=== PATIENT | male | born 1965 | race Caucasian/White ===

== ENCOUNTER 2020-04-06 10:54 | Inpatient (IN) | payer BC, SELFPAY ==
[2020-04-06] VITALS (7 sets, daily range): BP systolic 129–165; BP diastolic 64–95; PULSE 89–115; RESP 16–22; TEMP 36.4–37.1; O2SAT 93–98; BMI 43.0; BMI 56.5; BMI 56.0
--- NOTE | 2020-04-06 11:10 | EKG12_ITS ---
Test Reason : Blood Pressure : / mmHG Vent. Rate : 087 BPM Atrial Rate : 416 BPM P-R Int : 000 ms QRS Dur : 076 ms QT Int : 338 ms P-R-T Axes : 000 -38 -25 degrees QTc Int : 406 ms Accelerated Junctional rhythm Left axis deviation Inferior infarct , age undetermined Abnormal ECG Confirmed by ALEYDA ZARAGOZA, EDMUND ([id number]), international editorial producer SHEELA LOMBARDI ([id number]) on 04/11/2020 1:52:36 PM Referred By: REGI Confirmed By:ELI MAYNARD MD
[2020-04-06 11:50] LABS: Absolute Lymphocyte Count 0.61 X10^3/uL (0.83-4.51); Absolute Neutrophil Count 7.5 X10^3/uL (2.0-7.7); Basophil# 0.07 X10^3/uL; Basophil% 0.7 % (0-1); Eosinophil# 0.18 X10^3/uL; Eosinophils% 1.9 % (0-5); Hematocrit 36.9 % (40-54); Hemoglobin 12.1 g/dL (13.0-16.5); Lymphocyte # 0.61 X10^3/ul (4.0); Lymphocyte % 6.5 % (19-41); Mean Corp Hgb Conc 32.8 g/dL (32-36); Mean Corpuscular Hgb 32.6 pg (27.0-32.0); Mean Corpuscular Volume 99.5 fL (80-94); Monocyte# 0.94 X10^3/uL; NRBC Flagged by Analyzer 0 % (0-5); Neutrophil # 7.51 X10^3/uL (2.7-7.7); Neutrophil % 80.4 % (47-70); Platelet Count 117 K/mm3 (150-450); RBC Distribution Width CV 15.7 % (11.6-14.6); RBC Distribution Width SD 57.7 fl (35.1-43.9); Red Blood Count 3.71 M/mm3 (4.6-6.2); White Blood Count 9.4 K/mm3 (4.4-11.0)
--- NOTE | 2020-04-06 11:55 | RAD_ITS ---
STUDY: X-RAY CHEST REASON FOR EXAM: Male, 54 years old. SOB WITH PRODUCTIVE COUGH FOR A MONTH TECHNIQUE: PA and lateral views of the chest. COMPARISON: None. FINDINGS: EKG electrodes are seen. Small right pleural effusion with blunting of the left prosthetic angle. Mild degree of vascular congestion. There is mild cardiac enlargement. Normal mediastinum and bo. Normal visualized pulmonary arteries. Normal visualized aortic arch and descending thoracic aorta. There are diffuse degenerative changes of the visualized thoracic spine. Normal visualized ribs, clavicles, and shoulders. There is no demonstrated abnormality of the visualized soft tissue structures of the upper abdomen. RAD/Chest PA and Lateral IMPRESSION: Mild thyromegaly with a mild degree of vascular congestion and small bilateral effusions more prominent on the right side. Electronically Signed: Tutu Tong, at 12:18 EDT , Service support ,
[2020-04-06 11:57] LABS: International Normalized Ratio 1.5; Partial Thromboplast Time 35.6 Seconds (24.1-36.2); Prothrombin Time (Protime)PT. 17.8 SECONDS (11.7-14.9)
--- NOTE | 2020-04-06 12:07 | ED.VIS.GEN ---
History of Present Illness Chief Complaint: Shortness of Breath Detail of Chief Complaint: Shortnes of breath, lower extremity swelling, increased abdominal girth EL Informant: Patient, Significant Other Onset: Days Context: Gradual Onset Timing: Continuous Quality: Dyspnea on exertion, weight gain, swelling Location: Cardiopulmonary Current Severity: Mild Maximum Severity: Severe Worsened by: Walking Relieved by: Nothing Associated Symptoms: Denies orthopnea and PND. Denies chest discomfort Narrative: Is a 54-year-old morbidly obese male with history obstructive sleep apnea. He states he is compliant with his CPAP machine. He presents because of increased abdominal girth, increased swelling, dyspnea on exertion. He states he is only able to walk 10 feet before he has to stop. He states a month ago he was able to walk significantly farther. He states his pants are tight. He denies history of heart failure. He denies history of coronary disease. He denies history of hypertension or diabetes. He denies fever, chills night sweats. He denies ocular, visual auditory symptoms. He denies runny nose, congestion or postnasal drainage. He denies orthopnea and PND. He denies nausea, vomiting diarrhea. Denies intolerance to greasy or fried foods. Denies history of liver disease or gallbladder disease. He denies dark-colored urine. He denies back pain. Prior similar symptoms: No Recent Illness/Hospitalization: No - Past Medical History (1) Obstructive sleep apnea Status: Acute Past Medical History - Allergies and Home Meds Allergies/Adverse Reactions: Allergies No Known Allergies Allergy (Verified 04/06/20 10:54) Primary Care Physician: Nancy Patterson MD [STAFF PHYSICIAN] - Prior records reviewed: Yes Lives: Spouse/ Significant Other Smoking Status: Former smoker - Patient states he quit smoking 1 month ago. Alcohol: None Drugs: None Review of Systems General: Reports: Malaise. Denies: Chills, Fever, Subjective, Sweats, Weight loss Eyes: Denies: Visual changes - bilaterally, Blurred Vision - bilaterally ENT: Reports: - - Nuys ear pain, ringing in his ears or decreased hearing. Denies: Bilateral ear pain, Rhinorrhea, Sore throat Cardiovascular: Denies: Chest pain, Palpitations, Heart racing Respiratory: Reports: Dyspnea, Cough, Dyspnea on exertion. Denies: Orthopnea, Paroxysmal nocturnal dyspnea Gastrointestinal: Reports: - - Reports increased abdominal girth and discomfort from his skin being tight. Denies: Abdominal pain, Nausea, Vomiting, Diarrhea, Melena, Hematochezia Genitourinary: Denies: Dysuria, Hematuria, Frequency Musculoskeletal: Reports: Swelling. Denies: Myalgias, Arthralgias, Neck pain, Back pain, Extremity Pain, -, - Endocrine: Denies: Polyuria, Polydipsia Hematologic: Denies: Easy bruising, Easy bleeding Physical Exam Vital Signs/Narrative: Vital Signs Temp Pulse Resp BP Pulse Ox 04/06/20 10:56 97.5 F L 93 16 152/87 H 98 Inital Vital Signs reviewed: Yes General: Well nourished, Well developed, Obese Head: Normocephalic, Atraumatic Eyes: Perrl, EOMI, Scleral icterus. Negative for: Pale conjunctiva ENT: No rhinorrhea, TM's clear. Negative for: Nasal congestion Neck: Supple, Nontender, No lymphadenopathy, No JVD Cardiovascular: Regular rate, Regular rhythm, No murmurs, Normal S1, Normal S2 Respiratory: No distress, CTA bilaterally, Chest nontender Abdomen: Soft, Nontender, Nondistended, Normal bowel sounds Rectal: Deferred Back: Nontender, Normal Inspection. Negative for: CVA tenderness Extremities: Nontender, Edema - 1 cm of pitting edema dorsum of right and left foot. Patient has anasarca. Skin: No rash, Jaundice, No Trauma. Negative for: Cyanosis, Diaphoresis Neurological: Alert, Oriented x3, Cranial nerves II-XII grossly intact, Normal Strength, Normal Sensation, Normal DTR, Normal Gait Psychological: Normal affect, Normal Mood Diagnostic/Tx/Re-eval Chest X-Ray - ED: 2 View, Read by ED Physician, Normal, Bony Structures, Cardiomegaly, CHF, Right Effusion, - - 3 interpreted by me at 10/29/2005 Impressions Chest X-Ray 04/06/20 11:55 IMPRESSION: Mild thyromegaly with a mild degree of vascular congestion and small bilateral effusions more prominent on the right side. Electronically Signed: Tutu Tong, at 12:18 EDT , Service support , Abdomen/Pelvis CT 04/06/20 12:28 IMPRESSION: Diffuse ascites. Diffuse edema in the subcutaneous tissues. Findings suggestive of cirrhosis of the liver with the mild splenomegaly and varices formation in the region of the splenic hilum. Electronically Signed: Tutu Tong, at 14:31 EDT , Service support , 04/06/20 11:55 Chest PA and Lateral [RAD] Stat 04/06/20 12:28 Abdomen/Pelvis WITH Contrast [CT] Stat Laboratory Results 04/06/20 04/06/20 04/06/20 11:35 11:35 11:35 WBC 9.4 RBC 3.71 L Hgb 12.1 L Hct 36.9 L MCV 99.5 H MCH 32.6 H MCHC 32.8 RDW Std Deviation 57.7 H RDW Coeff of Olvin 15.7 H Plt Count 117 L MPV 10.0 Immature Gran % (Auto) 0.500 Neut % (Auto) 80.4 H Lymph % (Auto) 6.5 L Carlton % (Auto) 10.0 Eos % (Auto) 1.9 Baso % (Auto) 0.7 Absolute Neuts (auto) 7.5 Absolute Lymphs (auto) 0.61 L Nucleated RBC % 0 PT 17.8 H INR 1.5 APTT 35.6 Sodium 140 Potassium 3.7 Chloride 107 Carbon Dioxide 27.0 Anion Gap 6 BUN 14 Creatinine 0.78 Estim Creat Clear Calc 109.19 Est GFR (MDRD) Af Amer 132 Est GFR (MDRD) Non-Af 109 BUN/Creatinine Ratio 17.9 Glucose 90 Calcium 8.3 L Total Bilirubin 5.20 H AST 53 H ALT 28 Alkaline Phosphatase 233 H Troponin I < 0.015 B-Natriuretic Peptide Total Protein 6.8 Albumin 2.0 L Globulin 4.8 H Albumin/Globulin Ratio 0.4 L 04/06/20 11:35 WBC RBC Hgb Hct MCV MCH MCHC RDW Std Deviation RDW Coeff of Olvin Plt Count MPV Immature Gran % (Auto) Neut % (Auto) Lymph % (Auto) Carlton % (Auto) Eos % (Auto) Baso % (Auto) Absolute Neuts (auto) Absolute Lymphs (auto) Nucleated RBC % PT INR APTT Sodium Potassium Chloride Carbon Dioxide Anion Gap BUN Creatinine Estim Creat Clear Calc Est GFR (MDRD) Af Amer Est GFR (MDRD) Non-Af BUN/Creatinine Ratio Glucose Calcium Total Bilirubin AST ALT Alkaline Phosphatase Troponin I B-Natriuretic Peptide 125.4 H Total Protein Albumin Globulin Albumin/Globulin Ratio Reviewing CAT scan report patient states he was a heavy drinker. He still drinks daily. Suspect the cirrhosis noted on CAT scan with ascites is due to alcoholic liver disease causing cirrhosis. Case discussed with hospitalist. Plan is to admit for diuresis and further work-up. - Rhythm Strip Rhythm Strip: Sinus Rhythm Rate: 92 Ectopy: None - EKG Initial EKG Interpretation: Sinus Rhythm - This rhythm ventricular rate of 87. Computer is reading accelerated junction. I am in disagreement. NH interval is approximately 120 ms. QRS duration 76 ms. QT duration 338 ms. Cromwell to the left. There is artifact which computer is reading as ischemia. - Medical Decision Making Patient with anasarca. Need to rule out right heart failure, cardiac ischemia, left heart failure. He appears jaundiced. This may be due to heart failure. Will obtain appropriate blood work including CMP, CBC, coags. Chest x-ray is obtained to evaluate for congestive heart failure. EKG to evaluate for cardiac ischemia. ED Disposition - Plan for ED Patient: Disposition: Home or Assisted Living Diagnosis: Congestive heart failure, Ascites due to alcoholic cirrhosis, Painless jaundice, Bilateral pleural effusion, Anasarca Referrals: Nancy Patterson MD [STAFF PHYSICIAN] -
[2020-04-06 12:08] LABS: ALB/GLOB Ratio 0.4 RATIO (0.9-2.4); AST(SGOT) 53 U/L (15-37); Alanine Aminotransfer ALT/SGPT 28 U/L (16-61); Alkaline Phosphatase 233 U/L (45-117); Anion Gap 6 (5-15); BUN 14 mg/dL (7-18); BUN/Creat Ratio 17.9 RATIO (10-20); Calcium,Total 8.3 mg/dL (8.5-10.1); Chloride 107 mmol/L (98-107); Creatinine, Serum 0.78 mg/dL (0.70-1.30); EST Glomerular Filtration Rate 109 mL/min (>60); Est Glom Filt Rate - Afr Amer 132 mL/min (>60); Estimated Creatinine Clearance 109.19 ml/min; Globulin 4.8 g/dL (2.2-4.2); Glucose 90 mg/dL (74-106); Potassium 3.7 mmol/L (3.5-5.1); Protein, Total 6.8 g/dL (6.4-8.2); Sodium Level 140 mmol/L (136-145)
[2020-04-06 12:10] LABS: BNP,B-Type NATRIURETIC PEPTIDE 125.4 pg/mL (0-100)
--- NOTE | 2020-04-06 12:28 | CT_ITS ---
STUDY: CT ABDOMEN AND PELVIS WITH CONTRAST REASON FOR EXAM: Male, 54 years old. PAINLESS JAUNDICE AND ANASARCA. RADIATION DOSAGE (If Supplied By Facility): CTDIvol = ( 26.53 ) mGy, DLP = ( 1884.59 ) mGycm TECHNIQUE: Transaxial images were obtained from the dome of the diaphragm to the symphysis pubis with oral contrast. Oral and amp;amp;amp; IV Gastrografin and amp;amp;amp; 100mL Isovue-300 was administered. Sagittal and coronal images were reconstructed. Individualized dose optimization techniques were used for this CT. COMPARISON: None. FINDINGS: Small right pleural effusion with minimal right basilar atelectasis. The visualized portions of the heart are within normal limits. Diffuse ascites. There is a diffuse contour abnormality of the liver consistent with cirrhotic changes. Mildly thickened gallbladder wall most likely secondary to the diffuse ascites. There is mild splenomegaly. Findings suggestive of varices in the region of the splenic hilum. Normal pancreas. Normal bilateral adrenal glands. Normal right kidney. Normal left kidney. Normal visualized stomach. Normal small intestine. There is prominence of the haustral pattern in the right hemicolon. The appendix is visualized and appears normal. Normal abdominal aorta. Normal inferior vena cava. Normal retroperitoneum. Normal urinary bladder. Subcutaneous edema. There are degenerative changes of the visualized lumbar spine. CT/Abdomen/Pelvis WITH Contrast IMPRESSION: Diffuse ascites. Diffuse edema in the subcutaneous tissues. Findings suggestive of cirrhosis of the liver with the mild splenomegaly and varices formation in the region of the splenic hilum. Electronically Signed: Tutu Tong, at 14:31 EDT , Service support ,
--- NOTE | 2020-04-06 15:51 | HP.PCM_ITS ---
History of Present Illness Date of Admission: 04/06/20 Chief Complaint: shortness of breath The patient is a 54 year old M with no significant past medical history. He was admitted through the ED on 04/06/2020 with a complaint of shortness of breath. Shortness of breath had been going on for close to 2 months and that had progressively gotten worse. It was mainly exertional in nature and states he had to now take breaks while walking to his desk. He denied any orthopnea PND but admitted to lower extremity edema and felt that his abdomen was enlarging and getting tight. He denied any palpitations, dizziness, fever or chills, cough, exposure to any contact with COVID 19, diarrhea vomiting. Review of systems otherwise negative. says she had noted that his eyes were getting yellow. He is never been told he has heart failure and does have a strong alcohol history where he says he used to drink heavily in the past but quit about a month ago; recently had been drinking just about 2-3 beers daily. At time of review in the ED, temperature 98.1 ?F with blood pressure of 129/95, pulse rate of 115 respiratory rate of 22. Was saturating at 94% on room air. Chemistry showed sodium of 140 with potassium of 3.7 and total bilirubin of 5.2 with AST of 53, ALT of 28 and ALP of 233. Initial troponin was 0.015. BNP was 125.4. CBC showed hemoglobin of 12.1 with WBC of 9.4 and platelets of 117. This x-ray showed mild thyromegaly with a mild degree of vascular congestion and small bilateral pleural effusions more prominent on the right side and abdominopelvic CT showed diffuse ascites with diffuse edema in the subcutaneous tissues and findings suggestive of cirrhosis of the liver with mild splenomegaly and variceal formation in the region of the splenic hilum. He has been admitted to be managed for shortness of breath likely due to acute exacerbation of CHF as well as elevated bilirubin likely due to liver cirrhosis and probable cardiac cirrhosis from heart failure. [] Past Medical History Allergies No Known Allergies Allergy (Verified 04/06/20 10:54) Home Medications: Ambulatory Orders Medication Instructions Recorded NK 04/06/20 Surgical History: no surgical history Psychiatric History: No pertinent psych hx Lives: Spouse/ Significant Other Smoking Status: Former smoker - Patient states he quit smoking 1 month ago. Tobacco Use: Chew Alcohol: Heavy - quit drinking 1 month ago Drugs: None - *Family History Maternal History Items: Diabetes, High Cholesterol, Heart Disease Paternal History Items: Heart Disease, Hypertension Review of Systems Constitutional: Denies: Chills, Fever, Malaise, Weakness, Weight Change Eyes: Denies: Blurred vision HEENT: Denies: Head Aches, Sinus Congestion, Sinus Drainage Cardiovascular: Reports: Edema. Denies: Chest Pain, Chest Pressure, Heaviness, Orthopnea, Palpitations, Paroxysmal Noc. Dyspnea Respiratory: Reports: Shortness of Breath, Shortness of breath upon exertion. Denies: Cough, Shortness of breath at rest, Sputum production Gastrointestinal: Reports: - - abdominal distension, jaundice. Denies: Abdominal Pain, Nausea, Vomiting Genitourinary: Denies: Dysuria Musculoskeletal: Denies: Joint Pain, Joint Tenderness Skin: Denies: Rash, Wounds Neurological: Denies: Numbness, Tingling, Focal weakness Psychiatric: Denies: Anxiety, Depression, Homicidal Ideations, Suicidal Ideations Hematologic/ Lymphatic: Denies: Easy Bruising, Easy Bleeding VTE Information - Inpt Only VTE Present on Admission: No VTE Pharm Prophylaxis ordered?: Yes Patient Problems: Active and Suspected Problems Congestive heart failure (Acute) Ascites due to alcoholic cirrhosis (Acute) Painless jaundice (Acute) Bilateral pleural effusion (Acute) Anasarca (Acute) - Physical Exam Vitals/I&O's: Vital Signs Temp Pulse Resp BP Pulse Ox 98.1 F 115 H 22 H 129/95 H 94 04/06/20 14:50 04/06/20 14:50 04/06/20 14:50 04/06/20 14:50 04/06/20 14:50 Oxygen Delivery Method Room Air Weight: 300 lb Body Mass Index (BMI) 43.0 General: Alert, Oriented x3, Cooperative, No apparent distress HEENT: Atraumatic, PERRLA, EOMI, Normocephalic, - - jaundiced sclera Oral: Dry Mucosa Neck: Supple, No JVD, Negative Carotid Bruits Lungs: - - diminished breath sounds bibasally, no wheezes or crackles. On room air. Cardiovascular: Regular rate, Regular Rhythm, Normal S1, Normal S2, No murmurs Abdomen: Bowel Sounds Present, Soft, Non Tender, Distended, Obese, - - diffuse ascites with positive fluid thrill, edema of the abdominal wall Extremities: No edema, Capillary Refill Less than 3 Seconds Skin: No rashes, No breakdown Musculoskeletal: No Tenderness to Palpation of Joints or Extremities Lymphatic: No Cervical, Supraclavicular, or Inguinal Adenopathy Neurological: Cranial nerves II-XII grossly intact, Neuro grossly intact, Motor Exam 5/5 strength throughout Psych/Mental Status: Normal Affect, Appropriate, Alert and oriented to time, place, person, mood and affect Laboratory Results 04/06/20 11:35: WBC 9.4, RBC 3.71 L, Hgb 12.1 L, Hct 36.9 L, MCV 99.5 H, MCH 32.6 H, MCHC 32.8, RDW Std Deviation 57.7 H, RDW Coeff of Olvin 15.7 H, Plt Count 117 L, MPV 10.0, Immature Gran % (Auto) 0.500, Neut % (Auto) 80.4 H, Lymph % (Auto) 6.5 L, Willacy % (Auto) 10.0, Eos % (Auto) 1.9, Baso % (Auto) 0.7, Absolute Neuts (auto) 7.5, Absolute Lymphs (auto) 0.61 L, Nucleated RBC % 0 04/06/20 11:35: PT 17.8 H, INR 1.5, APTT 35.6 04/06/20 11:35: Sodium 140, Potassium 3.7, Chloride 107, Carbon Dioxide 27.0, Anion Gap 6, BUN 14, Creatinine 0.78, Estim Creat Clear Calc 109.19, Est GFR (MDRD) Af Amer 132, Est GFR (MDRD) Non-Af 109, BUN/Creatinine Ratio 17.9, Glucose 90, Calcium 8.3 L, Total Bilirubin 5.20 H, AST 53 H, ALT 28, Alkaline Phosphatase 233 H, Troponin I < 0.015, Total Protein 6.8, Albumin 2.0 L, Globulin 4.8 H, Albumin/Globulin Ratio 0.4 L 04/06/20 11:35: B-Natriuretic Peptide 125.4 H Diagnostic Data Chest X-Ray 04/06/20 11:55 IMPRESSION: Mild thyromegaly with a mild degree of vascular congestion and small bilateral effusions more prominent on the right side. Electronically Signed: Tutu Tong, at 12:18 EDT , Service support , Abdomen/Pelvis CT 04/06/20 12:28 IMPRESSION: Diffuse ascites. Diffuse edema in the subcutaneous tissues. Findings suggestive of cirrhosis of the liver with the mild splenomegaly and varices formation in the region of the splenic hilum. Electronically Signed: Tutu Tong, at 14:31 EDT , Service support , Assessment/Plan All Active Problems Obstructive sleep apnea (Acute) Congestive heart failure (Acute) Ascites due to alcoholic cirrhosis (Acute) Painless jaundice (Acute) Bilateral pleural effusion (Acute) Anasarca (Acute) 54-year-old male admitted with a complaint of shortness of breath. 1. Acute heart failure of unknown EF * Admit to PCU with telemetry. * BNP is only 125, patient is morbidly obese with BMI of over 50. * Chest x-ray showed mild thyromegaly with pulmonary vascular congestion. * EKG showed no acute ST changes. * Start diuresing with IV Lasix 40 mg twice daily. Restrict fluid to 1500 cc daily. Monitor intake and output. * Order 2D echo. * Breathing treatments with bronchodilators. Give oxygen as needed and titrate to maintain blood pressure more than 90%. * Will check TSH as well. * 2. Hyperbilirubinemia likely due to liver cirrhosis * Patient's bilirubin is 5.2. No baseline known. Patient is visibly jaundiced and says she has seen this for about 1 to 2 months. * AST is 53 and ALT T is 28 with ALP of 233. * CT of the abdomen and pelvis showed diffuse ascites with diffuse contour abnormality of the liver consistent with cirrhosis and mildly thickened gallbladder most likely secondary to diffuse ascites with mild splenomegaly and findings suggestive of varices in the region of the splenic hilum with a normal pancreas. Also subcutaneous edema. * It is likely that heart failure may also contributing to this due to possible cardiac cirrhosis. * Will get 2D echo. Trend bilirubin anemia to see if it improves with diuresis. * Counseled that we do not have a GI specialist here, but he prefers to stay here. He was counseled that if his hyperbilirubinemia worsened, he will have to be transferred to a tertiary center where there is GI service available. * 3. SIRS criteria: * No focus of infection. * Patient still tachycardic and tachypneic. * He has no elevated white cell count and no fever is no clear focus of infection. * I think this is all due to heart failure and not due to sepsis. * Will monitor. * 4. SOPHY: States he uses CPAP at night. To bring his CPAP machine in from home. DVT prophylaxis: Lovenox. CODE STATUS: Full code * Patient counseled extensively about different types of CODE STATUS including full code, DNR CCA and DNR CCA. Patient elects to be full code. * Total [id number] time 17 minutes. Inpatient E&M: 48776 Init Hosp L3 Procedures: 44553 Advncd Care Plan 30 Min
--- NOTE | 2020-04-06 15:51 | NURSING ---
PCU [facility] CHF WITH PEDRITO PLEURAL EFFUSIONS, ALCOHOLIC LIVER
[2020-04-06] MEDS: Furosemide 40 MG/4 ML Vial IV (17:03)
[2020-04-06] MEDS: 0.9% Saline Lock 10 ML Syringe IV (17:03)
[2020-04-06 18:12] LABS: Thyroid Stim Hormone (TSH) 1.66 uIU/mL (0.358-3.74)
[2020-04-06] MEDS: Carvedilol 3.125 MG TABLET PO (22:07)
[2020-04-07] VITALS (12 sets, daily range): BP systolic 110–169; BP diastolic 56–74; PULSE 72–97; RESP 14–22; TEMP 36.9–37.4; O2SAT 75–97
[2020-04-07 05:44] LABS: Absolute Lymphocyte Count 0.82 X10^3/uL (0.83-4.51); Absolute Neutrophil Count 7.6 X10^3/uL (2.0-7.7); Basophil# 0.09 X10^3/uL; Basophil% 0.9 % (0-1); Eosinophil# 0.23 X10^3/uL; Eosinophils% 2.3 % (0-5); Hematocrit 31.7 % (40-54); Hemoglobin 10.6 g/dL (13.0-16.5); Lymphocyte # 0.82 X10^3/ul (4.0); Lymphocyte % 8.1 % (19-41); Mean Corp Hgb Conc 33.4 g/dL (32-36); Mean Corpuscular Hgb 32.8 pg (27.0-32.0); Mean Corpuscular Volume 98.1 fL (80-94); Monocyte# 1.32 X10^3/uL; NRBC Flagged by Analyzer 0 % (0-5); Neutrophil # 7.61 X10^3/uL (2.7-7.7); Neutrophil % 75.1 % (47-70); Platelet Count 114 K/mm3 (150-450); RBC Distribution Width CV 15.8 % (11.6-14.6); Red Blood Count 3.23 M/mm3 (4.6-6.2); White Blood Count 10.1 K/mm3 (4.4-11.0)
--- NOTE | 2020-04-07 05:55 | ECHOCS_ITS ---
Reason For Study: CHF Procedure This was a 2D Doppler, Color Flow transthoracic echocardiogram. The study was technically difficult. Due to obesity; BMI >50. Contrast injection was performed. Exam performed portable in patient room. Left Ventricle Normal LV size. The estimated ejection fraction is 60 %. Normal diastology for age. No regional wall motion abnormalities noted. Right Ventricle Normal RV size. Normal systolic function. Atria Normal left atrium. Normal right atrium. No doppler evidence for ASD. Mitral Valve There is no mitral valve stenosis. No mitral valve insufficiency. Tricuspid Valve There is no tricuspid stenosis. Unable to estimate RV systolic pressure due to insufficient tricuspid regurgitant envelope. Trivial tricuspid valve insufficiency. Aortic Valve Trisinus/trileaflet aortic valve. There is no aortic stenosis. No aortic valve insufficiency. Pulmonic Valve There is no pulmonic valvular stenosis. No pulmonic valve insufficiency. Great Vessels Normal aortic root. Pericardium/Pleural No pericardial effusion. Medication Diluted definity 4.0ml given slow IV push to enhance endocardial definition. MMode/2D Measurements & Calculations LVIDd: 6.6 cm IVSd: 1.2 cm LVOT diam: 2.5 cm LVIDs: 4.4 cm LVPWd: 1.1 cm RVDd: 4.2 cm FS: 32.7 % LVOT area: 4.8 cm2 Ao root diam: 3.7 cm LAV(MOD-bp): 106.4 ml LA A4 area: 26.7 cm2 LAV(MOD-bp) Indexed: 38.2 ml/m2 LAV(MOD-sp2): 106.4 ml LAV(MOD-sp4): 98.8 ml LA dimension(2D): 5.5 cm RA A4 area: 21.6 cm2 Time Measurements MV dec time: 0.21 sec Doppler Measurements & Calculations MV E max hammad: 94.6 cm/sec Lat Peak E' Hammad: 13.6 cm/sec Med Peak E' Hammad: 12.9 cm/sec MV A max hammad: 85.6 cm/sec E/E' lat: 6.9 E/E' med: 7.3 MV E/A: 1.1 Ao V2 max: 220.8 cm/sec LV V1 max: 114.2 cm/sec SV(LVOT): 102.4 ml Ao max P.4 mmHg LV V1 max P.8 mmHg Ao V2 mean: 145.7 cm/sec LV V1 mean P.8 mmHg Ao mean P.4 mmHg LV V1 mean: 80.4 cm/sec Ao V2 VTI: 38.8 cm LV V1 VTI: 21.3 cm SANDRA(I,D): 2.6 cm2 SANDRA(V,D): 2.5 cm2 PA V2 max: 152.5 cm/sec TR max hammad: 304.7 cm/sec TR max P.1 mmHg Interpretation Summary The estimated ejection fraction is 60 %. Normal diastology for age. No significant valvular abnormalities The study was technically difficult. Contrast injection was performed. Ordering Physician: Nessa Wilkins Referring Physician: ELAINE PCP Performed By: Sylvie Garsia, SUE, RVT
[2020-04-07 06:00] LABS: ALB/GLOB Ratio 0.4 RATIO (0.9-2.4); AST(SGOT) 45 U/L (15-37); Alanine Aminotransfer ALT/SGPT 25 U/L (16-61); Albumin, Serum 1.7 g/dL (3.2-5.0); Alkaline Phosphatase 188 U/L (45-117); Anion Gap 7 (5-15); BUN 15 mg/dL (7-18); Calcium,Total 8.1 mg/dL (8.5-10.1); Chloride 104 mmol/L (98-107); Creatinine, Serum 0.71 mg/dL (0.70-1.30); EST Glomerular Filtration Rate 121 mL/min (>60); Est Glom Filt Rate - Afr Amer 147 mL/min (>60); Estimated Creatinine Clearance 119.95 ml/min; Globulin 4.4 g/dL (2.2-4.2); Glucose 94 mg/dL (74-106); Potassium 3.7 mmol/L (3.5-5.1); Protein, Total 6.1 g/dL (6.4-8.2); Sodium Level 138 mmol/L (136-145)
[2020-04-07] MEDS: Enoxaparin 40 MG/0.4 ML Syringe SC (08:14)
[2020-04-07] MEDS: Carvedilol 3.125 MG TABLET PO ×2 (08:14→22:16)
--- NOTE | 2020-04-07 08:30 | LIVB_PTH ---
PATIENT: ORTIZ TOVAR LOC: [facility] U#:[id number] AGE/SX: 54/M ROOM: [facility] RE04/06/[address]: Dr. Isreal Ryees DO : 1965 BED: 1 DIS: 04/08/2020 SPEC #: [id number] RECD: 04/08/20 08:25 STATUS: TREVON RETamia #: [id number] MANGO: 04/07/20 08:[address]: Isreal Reyes DEPT: SURGICAL PATHOLOGY RECD BY: Marcell Gonzales ENTERED: 04/08/20 09:31 SP TYPE: LIVER BX OTHR DR: MD Dr. Nessa Quiroz MD Tissues: Liver, NOS Procedures: PAS with Diastase (control) Trichrome (control) Special Stain Group II PAS Stain (control) Surgery Specimen Level V Retic (control) Iron Stain (control) HEADER OPERATION: CT-guided liver biopsy PRE-OP DIAGNOSIS: Cirrhosis TISSUE SUBMITTED: Right lobe liver 18 gauge core x3 MICROSCOPIC DIAGNOSIS Right lobe liver, CT-guided core biopsy: Consistent with cirrhosis. See microscopic description and comment. COLE:lynda 04/11/20 COMMENT Clinical correlation and appropriate follow up are necessary. Case has been reviewed in consultation with Dr. Jimenez who concurs with the above diagnosis. IDC:MG MICROSCOPIC DESCRIPTION Slides are reviewed. The specimen shows liver parenchymal tissue with replacement of normal lobular architecture into multiple nodules divided by fibrous septae. The nodule shows reactive changes and mild dilatation of sinusoids. Fibrous septae show moderate chronic inflammation and mild ductular proliferation. Iron stain shows focal mild increase of iron (1-2+) with focal area of marked increase of iron in hepatocytes up to 4+. Reticulin stain and trichrome show marked increase of fibrosis. PAS stain with and without diastasis do not show abnormal accumulation of protein. All stains are performed with appropriate matched controls. GROSS DESCRIPTION Received in fixative is one container labeled with the patient's name and designated liver biopsy. The specimen consists of three elongated fragments of harper soft tissue each measuring 1.5 cm in length and 0.1 cm in diameter. The specimen is totally submitted in one cassette. / SJ:lynda 04/08/20 TC:5 CPT: 45939, 01304 x5
[2020-04-07] MEDS: Furosemide 40 MG/4 ML Vial IV ×2 (10:01→17:47)
--- NOTE | 2020-04-07 10:30 | US_ITS ---
PROCEDURE: Ultrasound guided paracentesis. DATE OF EXAMINATION: April 07, 2020. INDICATION: Male, 54 years old. Ascites. PHYSICIAN: Tutu Tong M.D. TECHNIQUE: The risks, benefits, and alternatives to the procedure were explained to the patient. The specific risks of bleeding, infection, and damage to bowel were detailed and accepted. Witnessed informed consent was obtained. The abdomen was ultrasonographically surveyed. An appropriate pocket of fluid was identified at the right lower quadrant. The skin were cleaned and prepped in the usual sterile fashion. Using ultrasound guidance, the peritoneal cavity was accessed with a 5-Irish paracentesis needle/catheter system. The trocar was removed. A total of 10,050 ml of miguel-colored fluid were removed from the peritoneal cavity. The catheter was removed and a sterile dressing was applied. A 100 mL sample was sent to the laboratory. The procedure was well tolerated. US/Paracentesis with US IMPRESSION: Ultrasound guided paracentesis. Electronically Signed: Tutu Tong, at 14:33 EDT , Service support ,
--- NOTE | 2020-04-07 10:35 | PCM.PROGNOTE ---
<Felicita Bangura - Last Filed: 04/07/20 10:57> Patient Problems: Active and Suspected Problems Congestive heart failure (Acute) Ascites due to alcoholic cirrhosis (Acute) Painless jaundice (Acute) Bilateral pleural effusion (Acute) Anasarca (Acute) Subjective: Patient seen and examined. Reports breathing is improving. Patient reports he has gained 100 pounds in the past few months. He denies known history of liver disease or CHF. He denies chest pain. Denies other current symptoms. - Physical Exam Vitals/I&O's: Vital Signs Temp Pulse Resp BP Pulse Ox 98.6 F 81 14 143/69 H 96 04/07/20 08:12 04/07/20 08:12 04/07/20 08:12 04/07/20 08:12 04/07/20 08:12 Oxygen Delivery Method Room Air Weight: 391 lb 8.655 oz Body Mass Index (BMI) 56.5 Intake and Output for Last 24 Hours 04/05/20 04/06/20 04/07/20 23:59 23:59 23:59 Intake Total 560 / 1240 680 / 680 Output Total 100 / 550 450 / 450 Balance 460 / 690 230 / 230 General: Alert, Oriented x3, Cooperative HEENT: Atraumatic, PERRLA, EOMI, Normocephalic Neck: Supple, No JVD, Negative Carotid Bruits Lungs: Clear to auscultation, Diminished Cardiovascular: Regular rate, No murmurs Abdomen: Bowel Sounds Present, Soft, Non Tender, Non-Distended, Obese, - - Ascites Extremities: No clubbing, No cyanosis, Edema - +2-3, isidro wraps in place Skin: No rashes, No breakdown Musculoskeletal: No Tenderness to Palpation of Joints or Extremities Neurological: Cranial nerves II-XII grossly intact, Neuro grossly intact Psych/Mental Status: Normal Affect, Appropriate Laboratory Results 04/06/20 11:35: WBC 9.4, RBC 3.71 L, Hgb 12.1 L, Hct 36.9 L, MCV 99.5 H, MCH 32.6 H, MCHC 32.8, RDW Std Deviation 57.7 H, RDW Coeff of Olvin 15.7 H, Plt Count 117 L, MPV 10.0, Immature Gran % (Auto) 0.500, Neut % (Auto) 80.4 H, Lymph % (Auto) 6.5 L, [place] % (Auto) 10.0, Eos % (Auto) 1.9, Baso % (Auto) 0.7, Absolute Neuts (auto) 7.5, Absolute Lymphs (auto) 0.61 L, Nucleated RBC % 0 04/06/20 11:35: PT 17.8 H, INR 1.5, APTT 35.6 04/06/20 11:35: Sodium 140, Potassium 3.7, Chloride 107, Carbon Dioxide 27.0, Anion Gap 6, BUN 14, Creatinine 0.78, Estim Creat Clear Calc 109.19, Est GFR (MDRD) Af Amer 132, Est GFR (MDRD) Non-Af 109, BUN/Creatinine Ratio 17.9, Glucose 90, Calcium 8.3 L, Total Bilirubin 5.20 H, AST 53 H, ALT 28, Alkaline Phosphatase 233 H, Troponin I < 0.015, Total Protein 6.8, Albumin 2.0 L, Globulin 4.8 H, Albumin/Globulin Ratio 0.4 L 04/06/20 11:35: B-Natriuretic Peptide 125.4 H 04/06/20 17:30: Troponin I 0.016, TSH 1.66 04/06/20 20:50: Troponin I < 0.015 04/06/20 22:30: Troponin I < 0.015 04/07/20 05:16: WBC 10.1, RBC 3.23 L, Hgb 10.6 L, Hct 31.7 L, MCV 98.1 H, MCH 32.8 H, MCHC 33.4, RDW Std Deviation 56.0 H, RDW Coeff of Olvin 15.8 H, Plt Count 114 L, MPV 10.0, Immature Gran % (Auto) 0.600, Neut % (Auto) 75.1 H, Lymph % (Auto) 8.1 L, [place] % (Auto) 13.0 H, Eos % (Auto) 2.3, Baso % (Auto) 0.9, Absolute Neuts (auto) 7.6, Absolute Lymphs (auto) 0.82 L, Nucleated RBC % 0 04/07/20 05:16: Sodium 138, Potassium 3.7, Chloride 104, Carbon Dioxide 27.0, Anion Gap 7, BUN 15, Creatinine 0.71, Estim Creat Clear Calc 119.95, Est GFR (MDRD) Af Amer 147, Est GFR (MDRD) Non-Af 121, BUN/Creatinine Ratio 21.0 H, Glucose 94, Calcium 8.1 L, Total Bilirubin 6.00 H, AST 45 H, ALT 25, Alkaline Phosphatase 188 H, Total Protein 6.1 L, Albumin 1.7 L, Globulin 4.4 H, Albumin/Globulin Ratio 0.4 L Current Medications Carvedilol (Coreg) 3.125 mg PO BID [facility] Last Admin: 04/07/20 08:14 Dose: 3.125 mg Documented by: Dextrose (D50w Syringe) 0 gm IV X1 PRN; Protocol PRN Reason: Hypoglycemia Enoxaparin Sodium (Lovenox) 40 mg SC DAILY [facility] Last Admin: 04/07/20 08:14 Dose: 40 mg Documented by: Furosemide (Lasix) 40 mg IV BID@1000,1800 [facility] Last Admin: 04/07/20 10:01 Dose: 40 mg Documented by: Glucagon () 1 mg IM .X1 PRN PRN Reason: Hypoglycemia Nitroglycerin (Nitrostat) 0.4 mg SUBLINGUAL Q5M PRN PRN Reason: CARDIAC/CHEST PAIN Nutritional Formula (Lactose Free) (Ensure Enlive) 120 ml PO 4X/DAY [facility] Last Admin: 04/07/20 08:13 Dose: Not Given Documented by: Ondansetron HCl (Zofran) 4 mg IV Q8H PRN PRN PRN Reason: NAUSEA/VOMITING Sodium Chloride () 10 - 40 ml IV UD PRN PRN Reason: SALINE FLUSH Last Admin: 04/06/20 17:03 Dose: 10 ml Documented by: Spironolactone (Aldactone) 100 mg PO DAILY [facility] Medical Necessity - Tobacco Use Smoking Status: Never smoker Tobacco Use: Chew Assessment/Plan All Active Problems Obstructive sleep apnea (Acute) Congestive heart failure (Acute) Ascites due to alcoholic cirrhosis (Acute) Painless jaundice (Acute) Bilateral pleural effusion (Acute) Anasarca (Acute) 1. Liver cirrhosis with ascites, anasarca and hepatic hydrothorax-CT of abdomen on admission shows diffuse ascites, cirrhosis of the liver with mild splenomegaly and varices formation in the region of the splenic hilum. Chest x-ray demonstrated mild degree of vascular congestion with small bilateral pleural effusions. Oxygen stable on room air. Patient reports a history of heavy alcohol use however quit about a month ago. Echocardiogram demonstrates an EF of 60%, normal diastolic for age, no significant valvular abnormalities. Continue IV Lasix. Daily weight. Isidro wraps bilateral lower extremities. Initiated on Spironolactone 100 mg daily. Ultrasound-guided paracentesis ordered with labs. Liver biopsy ordered as well given cirrhosis on CT. Patient will need albumin if paracentesis removal is greater than 5 L. Patient will also need outpatient follow-up with GI. 2. Hyperbilirubinemia-suspect secondary to #1. Treatment per above, trend labs. 3. Hypertension- initiated on carvedilol 3.125 mg p.o. twice daily. 4. SOPHY- continue CPAP regimen. 5. Obesity-encouraged diet and lifestyle modifications. DVT prophylaxis- Lovenox sc This patient was seen by RAMON Moraes under the supervision of Dr. Reyes. <Isreal Reyes - Last Filed: 04/07/20 15:05> - Physical Exam Vitals/I&O's: Vital Signs Temp Pulse Resp BP Pulse Ox 37.4 C H 72 18 123/73 H 96 04/07/20 14:31 04/07/20 14:37 04/07/20 14:37 04/07/20 14:37 04/07/20 14:31 Oxygen Delivery Method [5] Room Air Oxygen Delivery Method [4] Room Air Oxygen Delivery Method [3] Room Air Oxygen Delivery Method [2] Room Air Oxygen Delivery Method [1 ( Room Air Initial Baseline)] Oxygen Delivery Method Room Air Weight: 177.6 kg Body Mass Index (BMI) 56.5 Intake and Output for Last 24 Hours 04/05/20 04/06/20 04/07/20 23:59 23:59 23:59 Intake Total 560 / 1240 680 / 680 Output Total 100 / 550 44801 / 97135 Balance 460 / 690 -54770 / -56774 General: Alert, Cooperative HEENT: Atraumatic, Normocephalic Neck: No Nodes, Trachea Midline Lungs: Clear to auscultation, Normal air movement, No rhonchi, No wheeze Cardiovascular: Regular rate, Regular Rhythm, Normal S1, Normal S2, No murmurs Abdomen: Bowel Sounds Present, Soft, Non Tender, Obese, - - distended, not taut Extremities: No clubbing, No cyanosis, Edema Skin: No rashes, No breakdown Musculoskeletal: No Tenderness to Palpation of Joints or Extremities, No Muscle Wasting Neurological: Muscle tone normal, Sensory exam intact to light touch and pain Psych/Mental Status: Normal Affect, Appropriate Laboratory Results 04/06/20 17:30: Troponin I 0.016, TSH 1.66 04/06/20 20:50: Troponin I < 0.015 04/06/20 22:30: Troponin I < 0.015 04/07/20 05:16: WBC 10.1, RBC 3.23 L, Hgb 10.6 L, Hct 31.7 L, MCV 98.1 H, MCH 32.8 H, MCHC 33.4, RDW Std Deviation 56.0 H, RDW Coeff of Olvin 15.8 H, Plt Count 114 L, MPV 10.0, Immature Gran % (Auto) 0.600, Neut % (Auto) 75.1 H, Lymph % (Auto) 8.1 L, [place] % (Auto) 13.0 H, Eos % (Auto) 2.3, Baso % (Auto) 0.9, Absolute Neuts (auto) 7.6, Absolute Lymphs (auto) 0.82 L, Nucleated RBC % 0 04/07/20 05:16: Sodium 138, Potassium 3.7, Chloride 104, Carbon Dioxide 27.0, Anion Gap 7, BUN 15, Creatinine 0.71, Estim Creat Clear Calc 119.95, Est GFR (MDRD) Af Amer 147, Est GFR (MDRD) Non-Af 121, BUN/Creatinine Ratio 21.0 H, Glucose 94, Calcium 8.1 L, Total Bilirubin 6.00 H, AST 45 H, ALT 25, Alkaline Phosphatase 188 H, Total Protein 6.1 L, Albumin 1.7 L, Globulin 4.4 H, Albumin/Globulin Ratio 0.4 L 04/07/20 13:50: Fluid Glucose Pending, Fluid Total Protein Pending, Fluid LDH Pending 04/07/20 13:50: Fluid pH Pending, Fluid Amylase Pending 04/07/20 13:50: Fluid Source Pending, Fluid Color Pending, Fluid Appearance Pending, Fluid Specific Grav 1.110, Fluid WBC Pending, Fluid RBC Pending, Fluid Tot Cell Count Pending, Fl Pathologist Comment May follow, Fluid Comment 2 Pending 04/07/20 13:50: Miscellaneous Cytology Pending Current Medications Carvedilol (Coreg) 3.125 mg PO BID [facility] Last Admin: 04/07/20 08:14 Dose: 3.125 mg Documented by: Dextrose (D50w Syringe) 0 gm IV X1 PRN; Protocol PRN Reason: Hypoglycemia Enoxaparin Sodium (Lovenox) 40 mg SC DAILY [facility] Last Admin: 04/07/20 08:14 Dose: 40 mg Documented by: Furosemide (Lasix) 40 mg IV BID@1000,1800 [facility] Last Admin: 04/07/20 10:01 Dose: 40 mg Documented by: Glucagon () 1 mg IM .X1 PRN PRN Reason: Hypoglycemia Nitroglycerin (Nitrostat) 0.4 mg SUBLINGUAL Q5M PRN PRN Reason: CARDIAC/CHEST PAIN Ondansetron HCl (Zofran) 4 mg IV Q8H PRN PRN PRN Reason: NAUSEA/VOMITING Sodium Chloride () 10 - 40 ml IV UD PRN PRN Reason: SALINE FLUSH Last Admin: 04/06/20 17:03 Dose: 10 ml Documented by: Spironolactone (Aldactone) 100 mg PO DAILY [facility] Last Admin: 04/07/20 12:23 Dose: 100 mg Documented by: Assessment/Plan Patient seen and examined independently. Data reviewed. I agree with the above note by the nurse practitioner. 1. Anasarca: Patient had echocardiogram performed that showed an EF of 60%. Otherwise unremarkable. I feel this is all related with underlying cirrhosis. On IV furosemide and will add Aldactone. Patient had a paracentesis that removed 10,000 cc fluid. Will replace with albumin. 2. Suspected cirrhosis: Clinical at this time but all signs point that this being underlying cirrhosis. Liver biopsy ordered. Recommend patient follow-up with gastroenterology as outpatient. Patient on had been in drinking daily around least 3 beers per day or so on the weekend. I feel that this probably alcohol induced cirrhosis though could be other possibilities such as nonalcoholic steatohepatitis. Told patient that he should never drink alcohol ever again. Told patient that he may need to even be evaluated for liver transplantation. But he would not be a candidate for minimum of 5 months given his last consumption was alcohol was a month ago. Patient states that he has not seen a doctor in 20 years. 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 Inpatient E&M: 76640 Subs Hosp L3
--- NOTE | 2020-04-07 11:39 | CASEMGMT ---
SHANEKA ACUNA AUTOBODY TECHNICIAN CM to room to meet with patient for initial transition planning/care coordination assessment. SHANEKA ACUNA introduced self and role at [facility]. Pt voices understanding and consents to assessment at this time. Pt resting in bed in no distress at this time. Pt is A/O at this time and answers all questions appropriately. Care providers, pharmacy, and demographics verified/updated at this time. PCP: Dr Lott--pt has an appt to be seen as a new pt for tomorrow morning (Fri) @ 0850. Pt asks if this appt could be rescheduled for next week. Ambrocio, Radiology Specialist, made aware and states will do this. Specialists: None Preferred [facility]acy: [facility] Insurance: [employer] Prescription Benefit: Yes Living Will/HPOA: States does not have LW or HCPOA . Interested in more information but states does not want to talk with SW at this time to complete paperwork. Provided information on advanced directives and given Social Service rac card with number to call if chooses in the future to utilize [facility] social work for advanced directive completion. LNOK: , Mallory. Daughter. Living Arrangements: Lives with his in one-story home w/3 steps to enter. Denies difficulty with stairs. Independent @ home. /pt share home mgmt tasks. Transportation: Pt states drives self and states no transportation concerns at this time. also drives DME: States has the following DME: CPAP. Does not have Home O2. On RA now. Pt states no need for further DME at this time. HHC/SNF: No history of either and no needs identified. Discussed CCN with pt and given brochure. Pt is interested in this program. Order placed with referral and call placed to Ryley @ [facility] and referral made. Discussed history of ETOH use w/pt. He states he quit about a month ago and is interested in talking w/SW for resources. Tanvi GOULD, made aware. Pt wishes to return home and states has no concerns with going home at time of discharge. CM to follow for any further discharge planning/needs. Pt voices no further concerns/needs at this time. Advised pt to ask for CM if any further questions/concerns/needs arise. Voices understanding. PLAN: Home. CCN referral made for new Dx: CHF. SW referral for Hx: ETOH abuse. Scarlet FARMERN RN CM
[2020-04-07] MEDS: Spironolactone 50 MG Tablet 100 MG PO (12:23)
--- NOTE | 2020-04-07 13:00 | CASEMGMT ---
SW spoke with patient regarding substance abuse referrals. SW told him that according to his insurance website there is only one agency in [place] that is in network. SW told him if he wants he could call his insurance to see if there are any other options. SW gave him a pamphlet for [employer] [facility] [employer] and a list of local AA meetings. He thanked SW and explained he is fine for now, but wants to have options in case he starts to have problems. Tanvi ALEXANDER MSW
--- NOTE | 2020-04-07 13:40 | FLU_PTH ---
PATIENT: ORTIZ TOVAR LOC: [facility] U#:[id number] AGE/SX: 54/M ROOM: [facility] RE04/06/[address]: Dr. Isreal Reyes DO : 1965 BED: 1 DIS: 04/08/2020 SPEC #: [id number] RECD: 04/07/20 14:28 STATUS: TREVON RETamia #: [id number] MANGO: 04/07/20 13:[address]: Isreal Reyes DEPT: CYTOLOGY RECD BY: Marcell Gonzales ENTERED: 04/08/20 09:22 SP TYPE: Fluid OTHR DR: MD Dr. Nessa Quiroz MD Tissues: PARACENTESIS FLUID Procedures: Special Stain Group II Surgery Specimen Level IV Cytospin Fluid HEADER OPERATION: Paracentesis PRE-OP DIAGNOSIS: Ascites; cirrhosis TISSUE SUBMITTED: Paracentesis fluid for cytology DIAGNOSIS CYTOLOGY Paracentesis fluid for cytology (cytospin and cell block): Negative for malignant cells. Acute inflammation. See comment. COLE:lynda 04/11/20 COMMENT Please make reference to corresponding surgical specimen [id number]. CYTOLOGY STUDY Slides are reviewed. CYTOLOGY GROSS Received is 80 ml of yellow cloudy fluid labeled with the patient's name and and designated per the requisition as paracentesis. Submitted for cytology preparation including cell block. / lynda 04/08/20 TC:2 CPT: 39795, 30927
[2020-04-07 14:33] LABS: Cytology, Body Fluid / CSF SEE PATHOLOGY REPORT
--- NOTE | 2020-04-07 14:52 | NURSING ---
10,050ML TOTAL TAKEN DURING PARACENTESIS.
[2020-04-07 14:55] LABS: Body Fluid Mononuclear WBC # 0.311 10^3/uL; Body Fluid Mononuclear WBC % 17.3 %; Body Fluid Polynuclear WBC # 1.492 10^3/uL; Body Fluid Polynuclear WBC % 82.7 %; Body Fluid Total Cells Counted 1.855 10^3/ul; White Blood Count/Body Fluid 1.803 10^3/uL
[2020-04-07 15:19] LABS: Auto B Fluid Analyzer BKGD Ct COUNTS W/IN LIMITS (W/IN LIMITS); Lymphocytes 1 %; Mesothelial Cells 4 %; Monocytes 14 %; Neutrophil (Segs) 81 %
[2020-04-07 15:20] LABS: Appearance/Body Fluid CLEAR; Body Fluid QC Type(s) BF2Q; Color/Body Fluid YELLOW; Source- Body Fluid OTHER
[2020-04-07 15:21] LABS: Red Cell Count/Body Fluid 636 /mm3
[2020-04-07 15:32] LABS: Glucose, Body Fluid 108 mg/dL (40-70); LDH,Body Fluid 47 Units/l (Not Establ.); Protein, Body Fluid 1.2 g/dL (Not Establ.)
[2020-04-07] MEDS: Albumin Human 25% (100 mL) 25 GM/100 ML BAG IV ×2 (16:12→17:44)
[2020-04-07] MEDS: Albumin Human 25% (50 mL) 12.5 GM/50 ML IV.SOLN IV (19:35)
[2020-04-07] MEDS: 0.9% Saline Lock 10 ML Syringe IV (20:37)
--- NOTE | 2020-04-07 23:25 | CPS ---
Set up heated humidity on CPAP.
[2020-04-08] VITALS (17 sets, daily range): BP systolic 120–164; BP diastolic 55–78; PULSE 72–98; RESP 14–97; TEMP 36.7–37; O2SAT 91–100; BMI 52.3
[2020-04-08 06:22] LABS: Hematocrit 27.5 % (40-54); Hemoglobin 9.4 g/dL (13.0-16.5); Mean Corp Hgb Conc 34.2 g/dL (32-36); Mean Corpuscular Hgb 33.1 pg (27.0-32.0); Mean Corpuscular Volume 96.8 fL (80-94); Platelet Count 101 K/mm3 (150-450); RBC Distribution Width CV 15.4 % (11.6-14.6); RBC Distribution Width SD 55.1 fl (35.1-43.9); Red Blood Count 2.84 M/mm3 (4.6-6.2); White Blood Count 7.5 K/mm3 (4.4-11.0)
[2020-04-08 06:41] LABS: ALB/GLOB Ratio 0.5 RATIO (0.9-2.4); AST(SGOT) 37 U/L (15-37); Alanine Aminotransfer ALT/SGPT 21 U/L (16-61); Albumin, Serum 1.8 g/dL (3.2-5.0); Alkaline Phosphatase 136 U/L (45-117); Anion Gap 4 (5-15); BUN 20 mg/dL (7-18); BUN/Creat Ratio 30.9 RATIO (10-20); Calcium,Total 7.9 mg/dL (8.5-10.1); Chloride 105 mmol/L (98-107); Creatinine, Serum 0.65 mg/dL (0.70-1.30); EST Glomerular Filtration Rate 135 mL/min (>60); Est Glom Filt Rate - Afr Amer 164 mL/min (>60); Estimated Creatinine Clearance 131.03 ml/min; Globulin 3.6 g/dL (2.2-4.2); Glucose 94 mg/dL (74-106); Protein, Total 5.4 g/dL (6.4-8.2); Sodium Level 140 mmol/L (136-145)
[2020-04-08] MEDS: 0.9% Saline Lock 10 ML Syringe IV ×2 (07:50→09:54)
--- NOTE | 2020-04-08 08:00 | CT_ITS ---
PROCEDURE: CT DIRECTED CORE LIVER BIOPSY INDICATION: Male, 54 years old. Cirrhosis PHYSICIAN: Dr. Alycia Lopez CONSENT: Written informed consent was obtained having explained the risks, benefits and alternatives in detail with the patient who accepted the risks and agreed to proceed. Laboratory review and clinical assessment was performed. CONSCIOUS SEDATION PROTOCOL: The Drugs used were: 2 mg Versed, IV., and 50 mcg Fentanyl, IV. The sedation time was: 9 minutes. Conscious sedation was started at 8:13 AM and terminated at 8:22 AM. The conscious sedation protocol was independently monitored. RADIATION DOSAGE (If Supplied By Facility): CTDIvol = ( 21.3 ) mGy, DLP = ( fibroid 5.01 ) mGycm Individualized dose optimization techniques were used for this CT. TECHNIQUE: Using CT image guidance with image documentation, a suitable location in the right lobe of the liver was identified. Using an anterior approach, puncture of the liver was uneventful with an 18-gauge core needle system. Three 18-gauge core samples were obtained, and submitted in formalin to the pathologist for further assessment. Followup CT scan revealed no distinct sequelae. CT/Biopsy/Inj or Needle Placement IMPRESSION: 1. CT directed core needle biopsy of the liver, using CT image guidance with image documentation as described. 2. Conscious Sedation protocol utilized with independent monitoring. Electronically Signed: Tutu Tong, at 8:56 EDT , Service support ,
[2020-04-08] MEDS: Midazolam 2 MG/2 ML Syringe IV (08:13)
[2020-04-08] MEDS: fentaNYL 100 MCG/2 ML Ampul IV (08:15)
[2020-04-08] MEDS: Furosemide 40 MG/4 ML Vial IV (09:48)
[2020-04-08] MEDS: Carvedilol 3.125 MG TABLET PO (09:48)
[2020-04-08] MEDS: Spironolactone 50 MG Tablet 100 MG PO (09:48)
[2020-04-08 11:39] LABS: Pathologist Comment/Body Fluid Reviewed
--- NOTE | 2020-04-08 11:48 | PN_ITS ---
Patient Problems: Active and Suspected Problems Congestive heart failure (Acute) Ascites due to alcoholic cirrhosis (Acute) Painless jaundice (Acute) Bilateral pleural effusion (Acute) Anasarca (Acute) Reason for Visit: anasarca Subjective: abdomen feeling better after paracentesis. Had bleeding after liver biopsy. No abdominal pain. Vitals/I&O's: Vital Signs Temp Pulse Resp BP Pulse Ox 36.7 C 79 17 124/70 H 96 04/08/20 11:22 04/08/20 11:22 04/08/20 11:22 04/08/20 11:22 04/08/20 11:22 Oxygen Flow Rate (L/min) [3] 2 Oxygen Flow Rate (L/min) [2] 2 Oxygen Flow Rate (L/min) 2 Oxygen Delivery Method [5] Room Air Oxygen Delivery Method [4] Room Air Oxygen Delivery Method [3] Nasal Cannula Oxygen Delivery Method [2] Nasal Cannula Oxygen Delivery Method [1 ( Room Air Initial Baseline)] Oxygen Delivery Method Room Air Weight: 165.4 kg Body Mass Index (BMI) 52.3 Intake and Output for Last 24 Hours 04/06/20 04/07/20 04/08/20 23:59 23:59 23:59 Intake Total 560 / 1240 1103 / 1103 21.67 / 21.67 Output Total 100 / 550 64667 / 10747 400 / 400 Balance 460 / 690 -76546 / -00098 -378.33 / -378.33 General: Alert, No apparent distress HEENT: Atraumatic, Normocephalic Oral: Moist Mucosa, No Gingival or Mucosal Lesions/ Ulcerations Neck: No Nodes, Thyroid Normal Size and Texture Lungs: Clear to auscultation, Normal air movement, No rhonchi, No wheeze Cardiovascular: Regular rate, Regular Rhythm, Normal S1, Normal S2 Abdomen: Obese, - - less distended. rectal exam showed no large external hemorrhoids. dried blood. no active bleeding. Extremities: No Calf Tenderness, Edema Skin: No rashes, No breakdown Psych/Mental Status: Normal Affect, Appropriate Microbiology Past 72 Hours 04/07/20 13:50 Fluid - Paracentesis (Abd) Body Fluid Culture - Preliminary No growth-Final to follow Laboratory Results 04/07/20 13:50: Fluid Glucose 108 H, Fluid Total Protein 1.2, Fluid LDH 47 04/07/20 13:50: Fluid pH Pending, Fluid Amylase Pending 04/07/20 13:50: Fluid Source OTHER, Fluid Color YELLOW, Fluid Appearance CLEAR, Fluid Specific Grav 1.110, Fluid WBC 1.803, Fluid RBC 636, Fluid Tot Cell Count 1.855, Fld Polynuclear WBCs # 1.492, Fld Polynuclear WBCs % 82.7, Fluid Mo nonuclear WBCs 0.311, Fld Mononuclear WBCs % 17.3, Fluid Neutrophils 81, Fluid Lymphocytes 1, Fluid Monocytes 14, Fld Mesothelial Cells 4, Fl Pathologist Comment Reviewed, Fluid Comment 2 SEE COMMENT 04/07/20 13:50: Miscellaneous Cytology Pending 04/08/20 05:47: WBC 7.5, RBC 2.84 L, Hgb 9.4 L, Hct 27.5 L, MCV 96.8 H, MCH 33.1 H, MCHC 34.2, RDW Std Deviation 55.1 H, RDW Coeff of Olvin 15.4 H, Plt Count 101 L , MPV 10.0 04/08/20 05:47: Sodium 140, Potassium 4.0, Chloride 105, Carbon Dioxide 31.0, Anion Gap 4 L, BUN 20 H, Creatinine 0.65 L, Estim Creat Clear Calc 131.03, Est GFR (MDRD) Af Amer 164, Est GFR (MDRD) Non-Af 135, BUN/Creatinine Ratio 30.9 H, Glucose 94, Calcium 7.9 L, Total Bilirubin 5.30 H, AST 37, ALT 21, Alkaline Phosphatase 136 H, Total Protein 5.4 L, Albumin 1.8 L, Globulin 3.6, Albumin/Globulin Ratio 0.5 L Current Medications Carvedilol (Coreg) 3.125 mg PO BID [facility] Last Admin: 04/08/20 09:48 Dose: 3.125 mg Documented by: Dextrose (D50w Syringe) 0 gm IV X1 PRN; Protocol PRN Reason: Hypoglycemia Enoxaparin Sodium (Lovenox) 40 mg SC DAILY [facility] Last Admin: 04/08/20 09:49 Dose: Not Given Documented by: Furosemide (Lasix) 40 mg IV BID@1000,1800 [facility] Last Admin: 04/08/20 09:48 Dose: 40 mg Documented by: Glucagon () 1 mg IM .X1 PRN PRN Reason: Hypoglycemia Sodium Chloride () 500 mls @ 0 mls/hr IV .Q0M [facility] Stop: 04/08/20 23:59 Last Infusion: 04/08/20 09:05 Dose: 0 mls/hr Documented by: Nitroglycerin (Nitrostat) 0.4 mg SUBLINGUAL Q5M PRN PRN Reason: CARDIAC/CHEST PAIN Ondansetron HCl (Zofran) 4 mg IV Q8H PRN PRN PRN Reason: NAUSEA/VOMITING Sodium Chloride () 10 - 40 ml IV UD PRN PRN Reason: SALINE FLUSH Last Admin: 04/08/20 09:54 Dose: 10 ml Documented by: Spironolactone (Aldactone) 100 mg PO DAILY [facility] Last Admin: 04/08/20 09:48 Dose: 100 mg Documented by: STROKE Vital Signs/Narrative: Vital Signs Temp Pulse Pulse Pulse Pulse Resp Resp 04/08/20 11:22 36.7 C 79 17 04/08/20 09:25 36.8 C 80 16 04/08/20 09:07 36.8 C 79 16 04/08/20 08:52 74 14 04/08/20 08:50 75 18 04/08/20 08:37 76 19 H 04/08/20 08:32 81 16 04/08/20 08:27 80 17 04/08/20 08:22 80 20 H 04/08/20 08:03 36.9 C 79 79 82 82 23 H 23 H Resp Resp BP BP BP BP Pulse Ox 04/08/20 11:22 124/70 H 96 04/08/20 09:25 120/61 100 04/08/20 09:07 128/59 H 96 04/08/20 08:52 153/62 H 97 04/08/20 08:50 126/55 H 97 04/08/20 08:37 157/66 H 98 04/08/20 08:32 155/71 H 98 04/08/20 08:27 125/56 H 98 04/08/20 08:22 152/71 H 98 04/08/20 08:03 19 H 97 H 164/76 H 164/76 H 163/61 H 149/66 H 98 Medical Necessity - Tobacco Use Smoking Status: Never smoker Tobacco Use: Chew Assessment/Plan All Active Problems Obstructive sleep apnea (Acute) Congestive heart failure (Acute) Ascites due to alcoholic cirrhosis (Acute) Painless jaundice (Acute) Bilateral pleural effusion (Acute) Anasarca (Acute) 1. Anasarca: * Patient had echocardiogram performed that showed an EF of 60%. Otherwise unremarkable. * I feel this is all related with underlying cirrhosis. On IV furosemide and will add Aldactone. * 04/07: Patient had a paracentesis that removed 10,000 cc fluid, replaced with with albumin. 2. Suspected cirrhosis: * Clinical at this time but all signs point that this being underlying cirrhosis. * 04/08: Liver biopsy performed. * MELD score 17 * Child-Jauregui B * Recommend patient follow-up with gastroenterology as outpatient. Patient on had been in drinking daily around least 3 beers per day or so on the weekend. I feel that this probably alcohol induced cirrhosis though could be other possibilities such as nonalcoholic steatohepatitis. Told patient that he should never drink alcohol ever again. Told patient that he may need to even be evaluated for liver transplantation. But he would not be a candidate for minimum of 5 months given his last consumption was alcohol was a month ago. 3. Hematochezia: * Acute onset. No hematemesis * Doubt bleeding from varices at this time as he is not pale and HDS * Suspect lower (internal hemorrhoids, diverticulosis) complicated by coagulopathy and enoxaparin * Type and cross * Monitor H/H * DC enoxaparin * DW with general surgery if can be on consult or would require transfer to a tertiary facility. 4. VTE prophylaxis: SCDs. Discussed with the patient and his who is a nurse over the phone. Discussed the case and my high suspicion for this being cirrhosis. All questions were answered. Greater than 40 minutes of which greater than 50% of time was discussing with the patient and his about suspected cirrhosis, treatment, evaluation of the hematochezia and possible referral to a tertiary facility if not feasible with our general surgeons here. Inpatient E&M: 83635 [facility] L3
[2020-04-08 12:55] LABS: Hematocrit 27.8 % (40-54); Hemoglobin 9.4 g/dL (13.0-16.5)
[2020-04-08 13:09] LABS: International Normalized Ratio 1.8; Prothrombin Time (Protime)PT. 20.1 SECONDS (11.7-14.9)
--- NOTE | 2020-04-08 13:44 | CASEMGMT ---
According to the [place] website, the following are in-network tertiary facilities: [facility], [facility], [facility], [facility], [facility], [facility], [facility], [facility], [facility], and . Carrington MUNROE CM
--- NOTE | 2020-04-08 14:24 | PCM.DC.SUM ---
Discharge Date and Diagnosis - Problem List Patient Problems: Active and Suspected Problems Congestive heart failure (Acute) Ascites due to alcoholic cirrhosis (Acute) Painless jaundice (Acute) Bilateral pleural effusion (Acute) Anasarca (Acute) Date of Admission: 04/06/20 Date of Discharge: 04/08/20 - Primary Discharge Diagnosis Acute Problems: Active Problems Congestive heart failure (Acute) Ascites due to alcoholic cirrhosis (Acute) Painless jaundice (Acute) Bilateral pleural effusion (Acute) Anasarca (Acute) 1. Anasarca: Patient had echocardiogram performed that showed an EF of 60%. Otherwise unremarkable. I feel this is all related with underlying cirrhosis. On IV furosemide and will add Aldactone. 04/07: Patient had a paracentesis that removed 10,000 cc fluid, replaced with with albumin. 2. Suspected cirrhosis: Clinical at this time but all signs point that this being underlying cirrhosis. 04/08: Liver biopsy performed. MELD score 17 Child-Jauregui B Recommend patient follow-up with gastroenterology as outpatient. Patient on had been in drinking daily around least 3 beers per day or so on the weekend. I feel that this probably alcohol induced cirrhosis though could be other possibilities such as nonalcoholic steatohepatitis. Told patient that he should never drink alcohol ever again. Told patient that he may need to even be evaluated for liver transplantation. But he would not be a candidate for minimum of 5 months given his last consumption was alcohol was a month ago. 3. Hematochezia: Acute onset. No hematemesis Doubt bleeding from varices at this time as he is not pale and HDS Suspect lower (internal hemorrhoids, diverticulosis) complicated by coagulopathy and enoxaparin. Patient does note that he was told that he has had diverticulosis many years ago when he had 18 inches of his colon resected due to a bowel obstruction. Type and cross Monitor H/H DC enoxaparin DW with general surgery if can be on consult or would require transfer to a tertiary facility. Discussed with [facility], discussed the case with Dr. Bright, who agreed to accept the patient. Patient will be transferred to [facility] today. Hospital Course and Treatment Imaging Results: 04/08/20 08:00 Biopsy/Inj or Needle Placement [CT] Urgent Clinical Impression(s) from Imaging Studies Chest X-Ray 04/06/20 11:55 IMPRESSION: Mild thyromegaly with a mild degree of vascular congestion and small bilateral effusions more prominent on the right side. Electronically Signed: Tutu Alycia, at 12:18 EDT , Service support , Abdomen/Pelvis CT 04/06/20 12:28 IMPRESSION: Diffuse ascites. Diffuse edema in the subcutaneous tissues. Findings suggestive of cirrhosis of the liver with the mild splenomegaly and varices formation in the region of the splenic hilum. Electronically Signed: Tutu Alycia, at 14:31 EDT , Service support , Paracentesis Ultrasound 04/07/20 10:30 IMPRESSION: Ultrasound guided paracentesis. Electronically Signed: Tutu Alycia, at 14:33 EDT , Service support , Biopsy CT 04/08/20 08:00 IMPRESSION: 1. CT directed core needle biopsy of the liver, using CT image guidance with image documentation as described. 2. Conscious Sedation protocol utilized with independent monitoring. Electronically Signed: Tutu Alycia, at 8:56 EDT , Service support , Operations: None Procedures: Paracentesis - Using ultrasound guidance, the peritoneal cavity was accessed with a 5-Georgian paracentesis needle/catheter system. The trocar was removed. A total of 10,050 ml of miguel-colored fluid were removed from the peritoneal cavity. The catheter was removed and a sterile dressing was applied. A 100 mL sample was sent to the laboratory., - - CT Guided liver biopsy: Using CT image guidance with image documentation, a suitable location in the right lobe of the liver was identified. Using an anterior approach, puncture of the liver was uneventful with an 18-gauge core needle system. Three 18-gauge core samples were obtained, and submitted in formalin to the pathologist for further assessment. Followup CT scan revealed no distinct sequelae. Summary of Care Provided: The patient is a 54 year old M resents with anasarca. Anasarca is due to cirrhosis and not CHF. Patient had massive ascites and did require paracentesis that removed over 10 L of fluid. Also suggesting cirrhosis is patient's INR is elevated at 1.8 without being on warfarin. Patient was initiated on diuresis with initially furosemide and then Spironolactone given the high likelihood of cirrhosis. Patient did have a liver biopsy performed today to expedite the diagnosis of cirrhosis that he could follow-up with gastroenterology as outpatient. However, after the CT-guided biopsy, patient had hematochezia. Patient had prior lost around 100 200 cc of blood. He had 2 bouts of that but has not had any further since. Patient is hemodynamically stable. Did discuss with general surgery, who feels that given the patient's cirrhosis that he would be too high risk in this facility recommended transfer to tertiary facility. Discussed with the patient and then he discussed with his and they prefer to go to [facility]. I spoke with the physician over there and patient was accepted. Told the patient beforehand that he may not have any further bleeding and they may not do any endoscopy for him but if things were to get worse that he would be an most appropriate place possible. [] Patient Problems: Active and Suspected Problems Congestive heart failure (Acute) Ascites due to alcoholic cirrhosis (Acute) Painless jaundice (Acute) Bilateral pleural effusion (Acute) Anasarca (Acute) - Physical Exam Vitals/I&O's: Vital Signs Temp Pulse Resp BP Pulse Ox 36.7 C 79 17 124/70 H 96 04/08/20 11:22 04/08/20 11:22 04/08/20 11:22 04/08/20 11:22 04/08/20 11:22 Oxygen Flow Rate (L/min) [3] 2 Oxygen Flow Rate (L/min) [2] 2 Oxygen Flow Rate (L/min) 2 Oxygen Delivery Method [5] Room Air Oxygen Delivery Method [4] Room Air Oxygen Delivery Method [3] Nasal Cannula Oxygen Delivery Method [2] Nasal Cannula Oxygen Delivery Method [1 ( Room Air Initial Baseline)] Oxygen Delivery Method Room Air Weight: 165.4 kg Body Mass Index (BMI) 52.3 Intake and Output for Last 24 Hours 04/06/20 04/07/2020 23:59 23:59 23:59 Intake Total 560 / 1240 1103 / 1103 21.67 / 21.67 Output Total 100 / 550 74543 / 39251 400 / 400 Balance 460 / 690 -92216 / -86636 -378.33 / -378.33 Microbiology Past 72 Hours 04/07/20 13:50 Fluid - Paracentesis (Abd) Gram Stain - Final 04/07/20 13:50 Fluid - Paracentesis (Abd) Body Fluid Culture - Preliminary No growth-Final to follow Laboratory Results 04/07/20 13:50: Fluid Glucose 108 H, Fluid Total Protein 1.2, Fluid LDH 47 04/07/20 13:50: Fluid pH Pending, Fluid Amylase Pending 04/07/20 13:50: Fluid Source OTHER, Fluid Color YELLOW, Fluid Appearance CLEAR, Fluid Specific Grav 1.110, Fluid WBC 1.803, Fluid RBC 636, Fluid Tot Cell Count 1.855, Fld Polynuclear WBCs # 1.492, Fld Polynuclear WBCs % 82.7, Fluid Mononuclear WBCs 0.311, Fld Mononuclear WBCs % 17.3, Fluid Neutrophils 81, Fluid Lymphocytes 1, Fluid Monocytes 14, Fld Mesothelial Cells 4, Fl Pathologist Comment Reviewed, Fluid Comment 2 SEE COMMENT 04/07/20 13:50: Miscellaneous Cytology Pending 04/08/20 05:47: WBC 7.5, RBC 2.84 L, Hgb 9.4 L, Hct 27.5 L, MCV 96.8 H, MCH 33.1 H, MCHC 34.2, RDW Std Deviation 55.1 H, RDW Coeff of Olvin 15.4 H, Plt Count 101 L, MPV 10.0 04/08/20 05:47: Sodium 140, Potassium 4.0, Chloride 105, Carbon Dioxide 31.0, Anion Gap 4 L, BUN 20 H, Creatinine 0.65 L, Estim Creat Clear Calc 131.03, Est GFR (MDRD) Af Amer 164, Est GFR (MDRD) Non-Af 135, BUN/Creatinine Ratio 30.9 H, Glucose 94, Calcium 7.9 L, Total Bilirubin 5.30 H, AST 37, ALT 21, Alkaline Phosphatase 136 H, Total Protein 5.4 L, Albumin 1.8 L, Globulin 3.6, Albumin/Globulin Ratio 0.5 L 04/08/20 12:46: Blood Type O POSITIVE, Antibody Screen NEGATIVE 04/08/20 12:46: Hgb 9.4 L, Hct 27.8 L 04/08/20 12:46: PT 20.1 H, INR 1.8 Current Medications Carvedilol (Coreg) 3.125 mg PO BID [facility] Last Admin: 04/08/20 09:48 Dose: 3.125 mg Documented by: Dextrose (D50w Syringe) 0 gm IV X1 PRN; Protocol PRN Reason: Hypoglycemia Furosemide (Lasix) 40 mg IV BID@1000,1800 [facility] Last Admin: 04/08/20 09:48 Dose: 40 mg Documented by: Glucagon () 1 mg IM .X1 PRN PRN Reason: Hypoglycemia Sodium Chloride () 500 mls @ 0 mls/hr IV .Q0M [facility] Stop: 04/08/20 23:59 Last Infusion: 04/08/20 09:05 Dose: 0 mls/hr Documented by: Nitroglycerin (Nitrostat) 0.4 mg SUBLINGUAL Q5M PRN PRN Reason: CARDIAC/CHEST PAIN Ondansetron HCl (Zofran) 4 mg IV Q8H PRN PRN PRN Reason: NAUSEA/VOMITING Sodium Chloride () 10 - 40 ml IV UD PRN PRN Reason: SALINE FLUSH Last Admin: 04/08/20 09:54 Dose: 10 ml Documented by: Spironolactone (Aldactone) 100 mg PO DAILY [facility] Last Admin: 04/08/20 09:48 Dose: 100 mg Documented by: Discharge Diet: 2000 mg Sodium Diet Home Medications: Medications to take at Discharge NK 04/06/20 Primary Care Physician: Nancy Patterson MD [STAFF PHYSICIAN] - Please Follow Up With: Len Lott MD Patient Instructions: Paracentesis, Liver Biopsy, Understanding Liver Biopsy, Liver Biopsy, ED Procedural Sedation, (Adult) Disposition: Acute care Hospital Minutes spent on discharge:: 60 Patient Condition:: Stable Medical Necessity - Tobacco Use Smoking Status: Never smoker Tobacco Use: Chew Meaningful Use Info Meaningful Use Diagnoses (Choose all that apply): None applicable Inpatient E&M: 85891 [facility]
--- NOTE | 2020-04-08 15:00 | NURSING ---
Report called to SHANEKA Cruz at [facility] at 1450. Offered to call pt's to update on POC, pt stated no, I will just handle it.
[2020-04-11 13:15] LABS: Amylase Body Fluid 14 U/L (.); pH, Body Fluid 11254 7.3 (Not Estab.)
--- NOTE | 2020-04-18 10:20 | CCN.REFER ---
Patient will not return CCN calls after mutliple messages left.
== END 2020-04-08 17:26 | disposition short-term general hospital (02) | DRG 433 ==
LOC: ED 15:33 → PCU 16:05
PROVIDERS: Internal Medicine; Nurse Practitioner Family; Admitting Provider Student in an Organized Health Care Education/Training Program; Emergency Provider Emergency Medicine; PCP Family Medicine
DX: K70.31 Alcoholic cirrhosis of liver with ascites (principal); K92.1 Melena; Z68.43 Body mass index [BMI] 50.0-59.9, adult; Z90.49 Acquired absence of other specified parts of digestive tract; G47.33 Obstructive sleep apnea (adult) (pediatric); E66.01 Morbid (severe) obesity due to excess calories; Z87.891 Personal history of nicotine dependence; R16.1 Splenomegaly, not elsewhere classified; I10 Essential (primary) hypertension
CPT/HCPCS: 36415; 49083; 71046; 74177; 77012; 80053; 81002; 82150; 82945; 83615; 83880; 83986; 84157; 84443; 84484; 85014; 85018; 85025; 85027; 85610; 85730; 86850; 86900; 86901; 87070; 87075; 87205; 88108; 88305; 88307; 88313; 89050; 93005; 93306; 94660; 97161; 97166; 97535; 97802; 99156; 99283; 99406; J7040; P9047; Q9957; Q9967; A4216; C8929; J1940

== ENCOUNTER → 2020-05-03 | Outpatient (CLI) | payer BC, SELFPAY ==
[2020-04-08 08:03] VITALS: BMI 52.3
[2020-05-03 12:44] LABS: Absolute Lymphocyte Count 0.75 X10^3/uL (0.83-4.51); Absolute Neutrophil Count 2.5 X10^3/uL (2.0-7.7); Basophil# 0.04 X10^3/uL; Basophil% 0.9 % (0-1); Eosinophil# 0.35 X10^3/uL; Eosinophils% 8.2 % (0-5); Hematocrit 32.1 % (40-54); Hemoglobin 10.4 g/dL (13.0-16.5); Lymphocyte # 0.75 X10^3/ul (4.0); Lymphocyte % 17.6 % (19-41); Mean Corp Hgb Conc 32.4 g/dL (32-36); Mean Corpuscular Hgb 32.5 pg (27.0-32.0); Mean Corpuscular Volume 100.3 fL (80-94); Mean Platelet Vol. 10.6 fl (6.2-12.0); Monocyte# 0.57 X10^3/uL; Monocyte% 13.4 % (0-10); NRBC Flagged by Analyzer 0 % (0-5); Neutrophil # 2.54 X10^3/uL (2.7-7.7); Neutrophil % 59.7 % (47-70); Platelet Count 119 K/mm3 (150-450); RBC Distribution Width CV 17.2 % (11.6-14.6); RBC Distribution Width SD 64.4 fl (35.1-43.9); White Blood Count 4.3 K/mm3 (4.4-11.0)
[2020-05-03 12:58] LABS: ALB/GLOB Ratio 0.5 RATIO (0.9-2.4); AST(SGOT) 75 U/L (15-37); Alanine Aminotransfer ALT/SGPT 39 U/L (16-61); Albumin, Serum 2.1 g/dL (3.2-5.0); Alkaline Phosphatase 235 U/L (45-117); Anion Gap 6 (5-15); BUN 11 mg/dL (7-18); BUN/Creat Ratio 15.1 RATIO (10-20); Calcium,Total 8.3 mg/dL (8.5-10.1); Chloride 106 mmol/L (98-107); Cholesterol 124 mg/dL (200); Creatinine, Serum 0.73 mg/dL (0.70-1.30); EST Glomerular Filtration Rate 118 mL/min (>60); Est Glom Filt Rate - Afr Amer 143 mL/min (>60); Globulin 4.5 g/dL (2.2-4.2); Glucose 91 mg/dL (74-106); High Density Lipoprotein 17 mg/dL; Potassium 4.1 mmol/L (3.5-5.1); Protein, Total 6.6 g/dL (6.4-8.2); Sodium Level 140 mmol/L (136-145); Triglycerides 81 mg/dL; Very Low Density Lipoprotein 16 mg/dL (5-40)
== END | disposition home or self-care (01) ==
LOC: MFPLAB 10:12
PROVIDERS: PCP Family Medicine; Visit Provider Family Medicine
DX: E66.9 Obesity, unspecified (principal); K74.60 Unspecified cirrhosis of liver; Z87.19 Personal history of other diseases of the digestive system
CPT/HCPCS: 36415; 80053; 80061; 85025

== ENCOUNTER → 2020-05-25 | Outpatient (CLI) | payer BC, SELFPAY ==
[2020-04-08 08:03] VITALS: BMI 52.3
[2020-05-25 17:57] LABS: International Normalized Ratio 1.5; Prothrombin Time (Protime)PT. 17.6 SECONDS (11.7-14.9)
[2020-05-25 18:12] LABS: ALB/GLOB Ratio 0.4 RATIO (0.9-2.4); AST(SGOT) 70 U/L (15-37); Alanine Aminotransfer ALT/SGPT 36 U/L (16-61); Albumin, Serum 2.2 g/dL (3.2-5.0); Alkaline Phosphatase 268 U/L (45-117); Anion Gap 3 (5-15); BUN 10 mg/dL (7-18); BUN/Creat Ratio 13.2 RATIO (10-20); Calcium,Total 8.3 mg/dL (8.5-10.1); Chloride 110 mmol/L (98-107); Creatinine, Serum 0.76 mg/dL (0.70-1.30); EST Glomerular Filtration Rate 113 mL/min (>60); Est Glom Filt Rate - Afr Amer 136 mL/min (>60); Glucose 80 mg/dL (74-106); Potassium 3.8 mmol/L (3.5-5.1); Protein, Total 7.2 g/dL (6.4-8.2); Sodium Level 140 mmol/L (136-145)
[2020-05-27 10:52] LABS: AFP, Tumor Marker 3.9 ng/mL (0.0-8.3)
== END | disposition home or self-care (01) ==
LOC: MTLAB 14:58
PROVIDERS: PCP Family Medicine; Referring Provider Internal Medicine Gastroenterology; Visit Provider Internal Medicine Gastroenterology
DX: K50.90 Crohn's disease, unspecified, without complications (principal)
CPT/HCPCS: 36415; 80053; 82105; 85610; 85730

== ENCOUNTER → 2020-05-27 | Outpatient (CLI) | payer BC, SELFPAY ==
[2020-04-08 08:03] VITALS: BMI 52.3
--- NOTE | 2020-05-27 13:55 | RAD_ITS ---
STUDY: X-RAY - LEFT KNEE REASON FOR EXAM: Male, 54 years old. knee pain, left more than right TECHNIQUE: 4 view(s) of the knee. COMPARISON: None. FINDINGS: Normal visualized distal femur. Normal visualized proximal tibia and fibula. Normal proximal tibiofibular articulation. There is no demonstrated fracture. 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 Normal lateral femorotibial compartment. There is moderate degenerative arthrosis of the patellofemoral articulation. There is a soft tissue prominence in the suprapatellar region suggesting a small volume joint effusion. The soft tissue structures are unremarkable. RAD/Knee 4 or More Views IMPRESSION: No acute fracture or dislocation. Multicompartment degenerative changes. Electronically Signed: Justin Ward MD at 19:25 EDT , Service support ,
--- NOTE | 2020-05-27 13:55 | RAD_ITS ---
STUDY: X-RAY - RIGHT KNEE REASON FOR EXAM: Male, 54 years old. knee pain, left more than right TECHNIQUE: 4 view(s) of the knee. COMPARISON: None. FINDINGS: Normal visualized distal femur. Normal visualized proximal tibia and fibula. Normal proximal tibiofibular articulation. There is no demonstrated fracture. 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 Normal lateral femorotibial compartment. There is mild degenerative arthrosis of the patellofemoral articulation. There is a soft tissue prominence in the suprapatellar region suggesting a small volume joint effusion. The soft tissue structures are unremarkable. RAD/Knee 4 or More Views IMPRESSION: No acute fracture or dislocation. Multicompartment degenerative changes. Electronically Signed: Justin Ward MD at 19:27 EDT , Service support ,
== END | disposition home or self-care (01) ==
LOC: MTRAD 13:53
PROVIDERS: PCP Family Medicine; Referring Provider Family Medicine; Visit Provider Family Medicine
DX: M25.561 Pain in right knee (principal); M25.562 Pain in left knee
CPT/HCPCS: 73564

== ENCOUNTER → 2020-07-25 | Outpatient (CLI) | payer BC, SELFPAY ==
[2020-04-08 08:03] VITALS: BMI 52.3
[2020-07-25 18:04] LABS: Hemoglobin 11.9 g/dL (13.0-16.5); Mean Corpuscular Hgb 32.3 pg (27.0-32.0); Mean Corpuscular Volume 95.1 fL (80-94); Mean Platelet Vol. 10.6 fl (6.2-12.0); Platelet Count 142 K/mm3 (150-450); RBC Distribution Width CV 16.1 % (11.6-14.6); RBC Distribution Width SD 56.6 fl (35.1-43.9); Red Blood Count 3.68 M/mm3 (4.6-6.2); White Blood Count 5.4 K/mm3 (4.4-11.0)
[2020-07-25 18:16] LABS: International Normalized Ratio 1.4; Partial Thromboplast Time 37.4 Seconds (24.1-36.2); Prothrombin Time (Protime)PT. 16.5 SECONDS (11.7-14.9)
[2020-07-25 18:20] LABS: ALB/GLOB Ratio 0.5 RATIO (0.9-2.4); AST(SGOT) 72 U/L (15-37); Alanine Aminotransfer ALT/SGPT 43 U/L (16-61); Albumin, Serum 2.5 g/dL (3.2-5.0); Alkaline Phosphatase 271 U/L (45-117); Anion Gap 4 (5-15); BUN 12 mg/dL (7-18); BUN/Creat Ratio 13.5 RATIO (10-20); Calcium,Total 8.8 mg/dL (8.5-10.1); Chloride 105 mmol/L (98-107); Creatinine, Serum 0.89 mg/dL (0.70-1.30); EST Glomerular Filtration Rate 94 mL/min (>60); Est Glom Filt Rate - Afr Amer 114 mL/min (>60); GGTP 226 U/L (15-85); Globulin 4.6 g/dL (2.2-4.2); Glucose 76 mg/dL (74-106); Potassium 3.8 mmol/L (3.5-5.1); Protein, Total 7.1 g/dL (6.4-8.2); Sodium Level 136 mmol/L (136-145)
== END | disposition home or self-care (01) ==
LOC: MTLAB 15:10
PROVIDERS: PCP Family Medicine; Referring Provider Internal Medicine Gastroenterology; Visit Provider Internal Medicine Gastroenterology
DX: K74.60 Unspecified cirrhosis of liver (principal); K72.90 Hepatic failure, unspecified without coma; R60.0 Localized edema
CPT/HCPCS: 36415; 80053; 82977; 85027; 85610; 85730

== ENCOUNTER → 2020-08-08 | Outpatient (CLI) | payer BC, SELFPAY ==
[2020-04-08 08:03] VITALS: BMI 52.3
[2020-08-08 18:52] LABS: Anion Gap 7 (5-15); BUN 12 mg/dL (7-18); BUN/Creat Ratio 13.4 RATIO (10-20); Calcium,Total 8.7 mg/dL (8.5-10.1); Chloride 104 mmol/L (98-107); EST Glomerular Filtration Rate 93 mL/min (>60); Est Glom Filt Rate - Afr Amer 112 mL/min (>60); Glucose 71 mg/dL (74-106); Potassium 3.8 mmol/L (3.5-5.1); Sodium Level 136 mmol/L (136-145)
== END | disposition home or self-care (01) ==
LOC: LAB.FUTURE 16:00 → MTLAB 16:02
PROVIDERS: PCP Family Medicine; Referring Provider Internal Medicine Gastroenterology; Visit Provider Internal Medicine Gastroenterology
DX: K70.30 Alcoholic cirrhosis of liver without ascites (principal)
CPT/HCPCS: 36415; 80048

== ENCOUNTER → 2020-10-18 15:52 | Outpatient (CLI) | payer BC, SELFPAY ==
[2020-04-08 08:03] VITALS: BMI 52.3
[2020-10-18 18:11] LABS: Anion Gap 6 (5-15); BUN 10 mg/dL (7-18); Calcium,Total 8.4 mg/dL (8.5-10.1); Chloride 109 mmol/L (98-107); Creatinine, Serum 0.83 mg/dL (0.70-1.30); EST Glomerular Filtration Rate 101 mL/min (>60); Est Glom Filt Rate - Afr Amer 123 mL/min (>60); Glucose 70 mg/dL (74-106); Potassium 3.6 mmol/L (3.5-5.1); Sodium Level 140 mmol/L (136-145)
== END ==
PROVIDERS: PCP Family Medicine; Referring Provider Internal Medicine Gastroenterology; Visit Provider Internal Medicine Gastroenterology
DX: K70.30 Alcoholic cirrhosis of liver without ascites (principal)
CPT/HCPCS: 36415; 80048

== ENCOUNTER → 2020-11-03 15:55 | Outpatient (CLI) | payer OTHER, SELFPAY ==
[2020-04-08 08:03] VITALS: BMI 52.3
[2020-11-03 18:06] LABS: Hematocrit 34.9 % (40-54); Hemoglobin 11.8 g/dL (13.0-16.5); Mean Corp Hgb Conc 33.8 g/dL (32-36); Mean Corpuscular Hgb 32.8 pg (27.0-32.0); Mean Corpuscular Volume 96.9 fL (80-94); Mean Platelet Vol. 10.8 fl (6.2-12.0); Platelet Count 123 K/mm3 (150-450); RBC Distribution Width CV 14.4 % (11.6-14.6); RBC Distribution Width SD 51.5 fl (35.1-43.9); White Blood Count 6.2 K/mm3 (4.4-11.0)
[2020-11-03 18:08] LABS: International Normalized Ratio 1.3
[2020-11-03 18:09] LABS: Partial Thromboplast Time 36.9 Seconds (24.1-36.2)
[2020-11-03 18:15] LABS: ALB/GLOB Ratio 0.6 RATIO (0.9-2.4); AST(SGOT) 64 U/L (15-37); Alanine Aminotransfer ALT/SGPT 41 U/L (16-61); Albumin, Serum 2.5 g/dL (3.2-5.0); Alkaline Phosphatase 246 U/L (45-117); Anion Gap 7 (5-15); BUN 15 mg/dL (7-18); BUN/Creat Ratio 13.6 RATIO (10-20); Calcium,Total 8.3 mg/dL (8.5-10.1); Chloride 105 mmol/L (98-107); EST Glomerular Filtration Rate 73 mL/min (>60); Est Glom Filt Rate - Afr Amer 89 mL/min (>60); Globulin 4.1 g/dL (2.2-4.2); Glucose 74 mg/dL (74-106); Potassium 3.7 mmol/L (3.5-5.1); Protein, Total 6.6 g/dL (6.4-8.2); Sodium Level 137 mmol/L (136-145)
[2020-11-05 08:33] LABS: AFP, Tumor Marker 4.6 ng/mL (0.0-8.3)
== END ==
PROVIDERS: PCP Family Medicine; Referring Provider Internal Medicine Gastroenterology; Visit Provider Internal Medicine Gastroenterology
DX: K74.60 Unspecified cirrhosis of liver (principal)
CPT/HCPCS: 36415; 80053; 82105; 85027; 85610; 85730

== ENCOUNTER → 2021-02-06 16:17 | Outpatient (CLI) | payer OTHER, SELFPAY ==
[2020-04-08 08:03] VITALS: BMI 52.3
[2021-02-06 18:33] LABS: Anion Gap 7 (5-15); BUN 16 mg/dL (7-18); BUN/Creat Ratio 17.3 RATIO (10-20); Calcium,Total 8.6 mg/dL (8.5-10.1); Chloride 105 mmol/L (98-107); Creatinine, Serum 0.93 mg/dL (0.70-1.30); EST Glomerular Filtration Rate 89 mL/min (>60); Est Glom Filt Rate - Afr Amer 108 mL/min (>60); Glucose 112 mg/dL (74-106); Potassium 3.7 mmol/L (3.5-5.1); Sodium Level 137 mmol/L (136-145)
== END ==
PROVIDERS: PCP Family Medicine; Referring Provider Internal Medicine Gastroenterology; Visit Provider Internal Medicine Gastroenterology
DX: K70.30 Alcoholic cirrhosis of liver without ascites (principal)
CPT/HCPCS: 36415; 80048

== ENCOUNTER → 2021-02-20 07:46 | Outpatient (CLI) | payer OTHER, SELFPAY ==
[2020-04-08 08:03] VITALS: BMI 52.3
--- NOTE | 2021-02-20 07:48 | US_ITS ---
STUDY: ABDOMINAL ULTRASOUND - RIGHT UPPER QUADRANT REASON FOR VISIT: Male, 55 years old CIRRHOSIS TECHNIQUE: Ultrasound evaluation of the right upper quadrant was performed with real-time and static rueda-scale imaging. TECHNICAL QUALITY: Adequate. COMPARISON: None. FINDINGS: Liver: The liver measures 19.6 cm. There is a heterogeneous echogenicity of the liver. The bile ducts are within normal limits. There is hepatic color flow. The direction of portal flow is hepatopetal. 2.2 cm round hyperechoic mass within the right lobe of liver likely consistent with a hemangioma. Small amount of ascites. Gallbladder: Normal distended gallbladder. The gallbladder wall measures 5 mm. There is a positive sonographic Interiano''s sign. There is pericholecystic fluid. There are no gallstones. Common Bile Duct (C.B.D.): The common bile duct measures 3 mm. Pancreas: Normal size of the head, body and tail of the pancreas. There is normal echogenicity of the pancreas. There is no demonstrated pancreatic mass or cyst. Right Kidney: Normal size of the right kidney. The right kidney measures 11.9 cm. Normal renal cortex. The right cortex measures cm. There is no demonstrated renal mass or cyst. There is no right hydronephrosis. US/Liver IMPRESSION: 1. Cirrhosis with a small amount of ascites. 2. 2 cm hyperechoic mass in the right lobe of the liver likely consistent with a hemangioma. However, in this patient with cirrhosis, hepatocellular carcinoma should be excluded. Correlation with liver protocol CT is recommended. 3. Gallbladder wall thickening likely secondary to ascites. Electronically Signed: Roc Mcnamara MD at 8:43 EDT Tel , Service support ,
== END ==
PROVIDERS: PCP Family Medicine; Referring Provider Internal Medicine Gastroenterology; Visit Provider Internal Medicine Gastroenterology
DX: K74.60 Unspecified cirrhosis of liver (principal)
CPT/HCPCS: 76705

== ENCOUNTER → 2021-02-28 08:15 | Outpatient (CLI) | payer OTHER, SELFPAY ==
[2020-04-08 08:03] VITALS: BMI 52.3
[2021-02-28 10:43] LABS: ALB/GLOB Ratio 0.6 RATIO (0.9-2.4); AST(SGOT) 72 U/L (15-37); Alanine Aminotransfer ALT/SGPT 44 U/L (16-61); Albumin, Serum 2.7 g/dL (3.2-5.0); Alkaline Phosphatase 294 U/L (45-117); Anion Gap 6 (5-15); BUN 16 mg/dL (7-18); BUN/Creat Ratio 19.1 RATIO (10-20); Calcium,Total 8.8 mg/dL (8.5-10.1); Chloride 106 mmol/L (98-107); Cholesterol 210 mg/dL (200); Creatinine, Serum 0.84 mg/dL (0.70-1.30); EST Glomerular Filtration Rate 100 mL/min (>60); Est Glom Filt Rate - Afr Amer 121 mL/min (>60); Globulin 4.3 g/dL (2.2-4.2); Glucose 97 mg/dL (74-106); High Density Lipoprotein 72 mg/dL; Potassium 4.5 mmol/L (3.5-5.1); Sodium Level 138 mmol/L (136-145); Triglycerides 78 mg/dL; Very Low Density Lipoprotein 16 mg/dL (5-40)
== END ==
PROVIDERS: PCP Family Medicine; Referring Provider Family Medicine; Visit Provider Family Medicine
DX: E66.9 Obesity, unspecified (principal); R60.0 Localized edema; Z12.5 Encounter for screening for malignant neoplasm of prostate
CPT/HCPCS: 36415; 80053; 80061; 83880; 84153; G0103

== ENCOUNTER → 2021-03-01 08:22 | Outpatient (CLI) | payer OTHER, SELFPAY ==
[2020-04-08 08:03] VITALS: BMI 52.3
--- NOTE | 2021-03-01 08:25 | CT_ITS ---
STUDY: CT ABDOMEN WITH CONTRAST REASON FOR EXAM: Male, 55 years old. CIRRHOSIS: ATTN LIVER RADIATION DOSAGE (If Supplied By Facility): CTDIvol = ( 16.15 ) mGy, DLP = ( 812.38 ) mGycm TECHNIQUE: Transaxial images were obtained post I.V. administration of IV 100mL Isovue-[id number], and without oral contrast. Sagittal and coronal images were reconstructed. Individualized dose optimization techniques were used for this CT. COMPARISON: Comparison is made with prior study dated 04/06/2020. FINDINGS: The visualized lung bases are unremarkable. The visualized portions of the heart are within normal limits. There is a diffuse contour abnormality of the liver consistent with cirrhotic changes. Small amount of perihepatic fluid is seen. Normal gallbladder and extrahepatic biliary system. There is moderate splenomegaly. Findings suggestive of a varices in the region of the splenic hilum. The main portal vein is patent. Normal pancreas. Normal bilateral adrenal glands. Normal right kidney. Normal left kidney. Normal visualized stomach. Normal small intestine. Normal colon. The appendix is visualized and appears normal. Normal abdominal aorta. Normal inferior vena cava. Normal retroperitoneum. Normal abdominal wall. Normal osseous structures. CT/Abdomen WITH IV Contrast IMPRESSION: Findings in keeping with cirrhosis of the liver and splenomegaly. I suspect varices in the region of the splenic hilum although the main portal vein is widely patent. Electronically Signed: Tutu Tong MD at 11:09 EDT , Service support ,
== END ==
PROVIDERS: PCP Family Medicine; Referring Provider Internal Medicine Gastroenterology; Visit Provider Internal Medicine Gastroenterology
DX: K74.60 Unspecified cirrhosis of liver (principal)
CPT/HCPCS: 74160; Q9967

== ENCOUNTER → 2021-05-08 16:03 | Outpatient (CLI) | payer OTHER, SELFPAY ==
[2020-04-08 08:03] VITALS: BMI 52.3
[2021-05-08 18:32] LABS: Anion Gap 6 (5-15); BUN 16 mg/dL (7-18); BUN/Creat Ratio 14.4 RATIO (10-20); Calcium,Total 8.4 mg/dL (8.5-10.1); Chloride 105 mmol/L (98-107); Creatinine, Serum 1.11 mg/dL (0.70-1.30); EST Glomerular Filtration Rate 72 mL/min (>60); Est Glom Filt Rate - Afr Amer 88 mL/min (>60); Glucose 86 mg/dL (74-106); Potassium 3.7 mmol/L (3.5-5.1); Sodium Level 135 mmol/L (136-145)
== END ==
PROVIDERS: PCP Family Medicine; Referring Provider Internal Medicine Gastroenterology; Visit Provider Internal Medicine Gastroenterology
DX: K70.30 Alcoholic cirrhosis of liver without ascites (principal)
CPT/HCPCS: 36415; 80048

== ENCOUNTER 2021-08-02 09:59 | Emergency (ER) | payer OTHER, SELFPAY ==
[2021-08-02 10:00] VITALS: BP 137/71; PULSE 63; RESP 18; TEMP 36.6; O2SAT 98; BMI 41.6
--- NOTE | 2021-08-02 10:08 | CT_ITS ---
STUDY: CT BRAIN WITHOUT CONTRAST REASON FOR EXAM: Male, 56 years old. PT HIT ON ANTERIOR FOREHEAD WITH A PART AT WORK, SAW STARS , LAC TO FOREHEAD RADIATION DOSAGE (If Supplied By Facility): CTDIvol = ( 44.99 ) mGy, DLP = ( 897.35 ) mGycm TECHNIQUE: Transaxial CT imaging of the brain was performed without administration of intravenous contrast material. Individualized dose optimization techniques were used for this CT. COMPARISON: No relevant priors. FINDINGS: Normal soft tissue structures. Normal calvarium. Normal size ventricles and extra-axial spaces for the patient''s age. Normal white matter tracts of the cerebral hemispheres. Normal basal ganglia and thalami. Normal brainstem. Normal cerebellum. There is no intracranial hemorrhage. There are no findings of an acute ischemic infarction. Normal visualized paranasal sinuses. CT/Brain/Head without Contrast IMPRESSION: No acute intracranial hemorrhage or mass effect. Electronically Signed: John Jennings MD (Brooks) at 10:55 EDT , Service support ,
--- NOTE | 2021-08-02 10:08 | EX.ED.GENINJ ---
HPI History of Present Illness Chief Complaint: Head Injury Informant: patient Onset/Context/Timing Onset: Today Mechanism/Context: Blunt Injury and Work Related Current Severity: Mild Maximum Severity: Mild Narrative Narrative: Patient presents secondary to head injury. He was at work approximate 3 hours ago leaning over machine when a part came down striking him across the upper forehead. He was not knocked to the ground and did not lose consciousness. He states he feels foggy. No nausea or vomiting. Patient is not on anticoagulants but does have chronic liver disease. [facility] Medical History Ascites due to alcoholic cirrhosis Congestive heart failure Obstructive sleep apnea Home Medications Vitamin C 08/02/21 [History Last Taken Unknown] furosemide 40 mg PO DAILY 08/02/21 [History Last Taken Unknown] lactulose 10 g PO DAILY 08/02/21 [History Last Taken Unknown] niacin 08/02/21 [History Last Taken Unknown] nystatin TOPICAL 08/02/21 [History Last Taken Unknown] pantoprazole 40 mg PO DAILY 08/02/21 [History Last Taken Unknown] rifaximin [Xifaxan] 550 mg PO BID 08/02/21 [History Last Taken Unknown] spironolactone 100 mg PO DAILY 08/02/21 [History Last Taken Unknown] triamcinolone acetonide applic TOPICAL 08/02/21 [History Last Taken Unknown] zaleplon mg 08/02/21 [History Last Taken Unknown] Allergy/AdvReac Type Severity Reaction Status Date / Time shellfish derived Allergy Anaphylaxis Verified 08/02/21 10:21 Social History Smoking Status: Never smoker ROS ROS ED Constitutional Constitutional ED: Denies chills or fever(s) Eyes Eyes: Denies change in vision ENT ENT ED: Denies sore throat Cardiovascular Cardiovascular: Denies chest pain Respiratory/Chest Respiratory/Chest: Denies cough or dyspnea Gastrointestinal Gastrointestinal: Denies abdominal pain, diarrhea, nausea or vomiting Genitourinary Genitourinary ED: Denies dysuria Musculoskeletal Musculoskeletal: Denies back pain or neck pain Integumentary Reports Abrasions; Denies rash Neurologic Neurologic: Reports headache(s); Denies weakness Psychiatric Psychiatric: Denies anxiety or depression Allergic/Immunologic Allergic/Immunologic ED: Denies urticaria EXAM Physical Exam Const Vital Signs: 08/02/21 10:00 08/02/21 10:27 Temperature 97.8 F Temperature Source Temporal Pulse Rate 63 Respiratory Rate 18 Respiratory Effort Normal Respiratory Depth Normal Respiratory Pattern Normal Blood Pressure 137/71 H Blood Pressure Mean 93 Pulse Ox 98 Oxygen Delivery Method Room Air Positive well nourished and well developed General Appearance ED: well developed HEENT HEENT Narrative: 2 scabbed abrasions over the upper forehead, each measuring approximately 4 mm in length. Eyes PERRL and EOMs intact bilaterally Neck full ROM Neck Narrative: No C-spine tenderness. Chest Wall inspection of chest normal and palpation of chest normal Resp normal respiratory effort and clear to auscultation bilaterally Cardio regular rhythm Rate: regular rate GI normal to inspection, nondistended, normoactive bowel sounds and non-tender Palpation: soft Back/Spine normal to inspection and no thoracic nor lumbar tenderness Extremity normal to inspection Neuro oriented x3 and no sensory deficits noted Sensorium / Orientation: alert Motor Exam: strength 5/5 throughout Skin Skin Narrative: Forehead abrasions as noted above. MDM MDM MDM Narrative Medical decision making narrative: Head CT ordered. Radiography Diagnostic Testing: Radiology Impression Brain CT 08/02/21 10:08 IMPRESSION: No acute intracranial hemorrhage or mass effect. Electronically Signed: John Jennings MD ([place]) at 10:55 EDT , Service support , Treatment and Re-Evaluation Comments:: Head CT reveals no obvious abnormalities. I discussed closed head injuries and concussions with the patient. He will follow up with corporate care. Discharge Plan Triage Chief Complaint: Head Injury ED Provider: Vaishali Segovia Dx/Rx/DC Orders Clinical Impression: Closed head injury Instructions: ED Concussion, ED Head Injury (Adult) Prescriptions: No Action furosemide 40 mg tablet 40 mg PO DAILY RF: 0 spironolactone 100 mg tablet 100 mg PO DAILY RF: 0 triamcinolone acetonide 0.1 % cream TOPICAL RF: 0 pantoprazole 40 mg tablet,delayed release (DR/EC) 40 mg PO DAILY RF: 0 nystatin 100,000 unit/gram cream TOPICAL RF: 0 zaleplon 10 mg capsule RF: 0 lactulose 10 gram/15 mL solution 10 g PO DAILY RF: 0 Xifaxan 550 mg tablet 550 mg PO BID RF: 0 Vitamin C RF: 0 niacin RF: 0 Stand Alone Forms: Work Status Form Primary Care Provider: Len Lott Referrals: [facility] [GROUP OF PHYSICIANS] - 3-5 Days Len Lott MD [Primary Care Provider] - Disposition Disposition: Home, Self Care
[2021-08-02 11:49] VITALS: BP 114/71; PULSE 56
== END 2021-08-02 11:52 | disposition home or self-care (01) ==
PROVIDERS: Emergency Provider Emergency Medicine; PCP Family Medicine
DX: S09.90XA Unspecified injury of head, initial encounter (principal); I50.9 Heart failure, unspecified; Z79.899 Other long term (current) drug therapy; W20.8XXA Other cause of strike by thrown, projected or falling object, initial encounter; Y93.89 Activity, other specified; Y92.89 Other specified places as the place of occurrence of the external cause; Y99.0 Civilian activity done for income or pay
CPT/HCPCS: 70450; 99282

== ENCOUNTER → 2021-08-08 16:07 | Outpatient (CLI) | payer OTHER, SELFPAY ==
[2021-08-08 18:17] LABS: Amphetamine Urine VISTA NEGATIVE (<1000 ng/mL); Barbiturate Urine VISTA NEGATIVE (< 200 ng/mL); Benzodiazepine Urine VISTA NEGATIVE (< 200 ng/mL); Cocaine Urine VISTA NEGATIVE (< 300 ng/mL); Ecstacy Urine VISTA NEGATIVE (< 500 ng/mL); Methadone Urine VISTA NEGATIVE (< 300 ng/mL); PCP Urine VISTA NEGATIVE (< 25 ng/mL); THC Urine VISTA NEGATIVE (< 50 ng/mL); Vista UDS pH Range 6
== END ==
PROVIDERS: PCP Family Medicine; Referring Provider Internal Medicine Gastroenterology; Visit Provider Internal Medicine Gastroenterology
DX: G47.30 Sleep apnea, unspecified (principal)
CPT/HCPCS: 80307

== ENCOUNTER 2021-08-09 15:57 | Outpatient (RCR) | payer OTHER, SELFPAY ==
[2021-08-09 18:31] LABS: Anion Gap 7 (5-15); BUN 9 mg/dL (7-18); BUN/Creat Ratio 9.1 RATIO (10-20); Calcium,Total 8.5 mg/dL (8.5-10.1); Chloride 107 mmol/L (98-107); Creatinine, Serum 0.98 mg/dL (0.70-1.30); EST Glomerular Filtration Rate 83 mL/min (>60); Est Glom Filt Rate - Afr Amer 101 mL/min (>60); Glucose 92 mg/dL (74-106); Potassium 3.6 mmol/L (3.5-5.1); Sodium Level 140 mmol/L (136-145)
== END 2021-08-27 18:00 | disposition home or self-care (01) ==
LOC: MTLAB 15:57
PROVIDERS: PCP Family Medicine; Referring Provider Internal Medicine Gastroenterology; Visit Provider Internal Medicine Gastroenterology
DX: K70.30 Alcoholic cirrhosis of liver without ascites (principal)
CPT/HCPCS: 36415; 80048

== ENCOUNTER 2021-11-06 15:57 | Outpatient (RCR) | payer BC, SELFPAY ==
[2021-11-06 18:08] LABS: Anion Gap 7 (5-15); BUN 14 mg/dL (7-18); BUN/Creat Ratio 16.7 RATIO (10-20); Calcium,Total 8.8 mg/dL (8.5-10.1); Chloride 104 mmol/L (98-107); Creatinine, Serum 0.84 mg/dL (0.70-1.30); EST Glomerular Filtration Rate 100 mL/min (>60); Est Glom Filt Rate - Afr Amer 121 mL/min (>60); Glucose 84 mg/dL (74-106); Potassium 3.8 mmol/L (3.5-5.1); Sodium Level 138 mmol/L (136-145)
== END 2021-11-27 18:00 | disposition home or self-care (01) ==
LOC: MTLAB 15:57
PROVIDERS: PCP Family Medicine; Referring Provider Internal Medicine Gastroenterology; Visit Provider Internal Medicine Gastroenterology
DX: K70.30 Alcoholic cirrhosis of liver without ascites (principal)
CPT/HCPCS: 36415; 80048

== ENCOUNTER 2022-02-05 15:56 | Outpatient (RCR) | payer BC, SELFPAY ==
[2022-02-05 18:09] LABS: Absolute Lymphocyte Count 0.69 X10^3/uL (0.83-4.51); Basophil# 0.07 X10^3/uL; Basophil% 1.2 % (0-1); Eosinophil# 0.31 X10^3/uL; Eosinophils% 5.2 % (0-5); Hematocrit 33.6 % (40-54); Hemoglobin 11.6 g/dL (13.0-16.5); Lymphocyte # 0.69 X10^3/ul (0.83-4.51); Lymphocyte % 11.7 % (19-41); Mean Corp Hgb Conc 34.5 g/dL (32-36); Mean Corpuscular Hgb 33.4 pg (27.0-32.0); Mean Corpuscular Volume 96.8 fL (80-94); Mean Platelet Vol. 11.4 fl (6.2-12.0); Monocyte# 0.81 X10^3/uL; Monocyte% 13.7 % (0-10); NRBC Flagged by Analyzer 0 % (0-5); Neutrophil # 4.03 X10^3/uL (2.7-7.7); Platelet Count 107 K/mm3 (150-450); RBC Distribution Width CV 14.5 % (11.6-14.6); RBC Distribution Width SD 51.4 fl (35.1-43.9); Red Blood Count 3.47 M/mm3 (4.6-6.2); White Blood Count 5.9 K/mm3 (4.4-11.0)
[2022-02-05 18:24] LABS: ALB/GLOB Ratio 0.7 RATIO (0.9-2.4); AST(SGOT) 64 U/L (15-37); Alanine Aminotransfer ALT/SGPT 36 U/L (16-61); Albumin, Serum 2.6 g/dL (3.2-5.0); Alkaline Phosphatase 275 U/L (45-117); Anion Gap 3 (5-15); BUN 16 mg/dL (7-18); BUN/Creat Ratio 17.1 RATIO (10-20); Calcium,Total 8.5 mg/dL (8.5-10.1); Chloride 108 mmol/L (98-107); Cholesterol 180 mg/dL (200); Creatinine, Serum 0.94 mg/dL (0.70-1.30); EST Glomerular Filtration Rate 88 mL/min (>60); Est Glom Filt Rate - Afr Amer 106 mL/min (>60); Globulin 3.6 g/dL (2.2-4.2); Glucose 84 mg/dL (74-106); High Density Lipoprotein 69 mg/dL; Potassium 3.8 mmol/L (3.5-5.1); Protein, Total 6.2 g/dL (6.4-8.2); Sodium Level 138 mmol/L (136-145); Triglycerides 92 mg/dL; Very Low Density Lipoprotein 18 mg/dL (5-40)
== END 2022-02-05 18:00 | disposition home or self-care (01) ==
LOC: MTLAB 15:56
PROVIDERS: PCP Family Medicine; Referring Provider Internal Medicine Gastroenterology; Visit Provider Internal Medicine Gastroenterology
DX: E78.5 Hyperlipidemia, unspecified (principal); R60.0 Localized edema; K74.60 Unspecified cirrhosis of liver
CPT/HCPCS: 36415; 80053; 80061; 85025

== ENCOUNTER → 2022-02-24 | Outpatient (CLI) | payer BC, SELFPAY ==
--- NOTE | 2022-02-24 08:04 | US_ITS ---
EXAM: US ABDOMEN LIMITED, RIGHT UPPER QUADRANT CLINICAL INDICATION: CIRRHOSIS TECHNIQUE: Real-time ultrasound of the right upper quadrant with image documentation. This report was created using [employer]AB[employer] report generation technology. COMPARISON: CT abdomen March 01, 2021 FINDINGS: LIVER: Diffusely abnormal hepatic echogenicity with nodular contour consistent with cirrhosis. A 2 cm hyperechoic area noted within the left hepatic lobe of uncertain etiology. Follow-up MRI of the liver with and without contrast recommended. GALLBLADDER: Gallbladder wall thickening likely related to underlying liver disease. No gallstones are identified. No pericholecystic fluid. Negative sonographic Interiano''s sign. COMMON BILE DUCT: Unremarkable as visualized. The proximal common bile duct is within normal limits for the patient''s age. PANCREAS: Unremarkable as visualized. No focal abnormality is demonstrated in the pancreas. No pancreatic ductal dilatation. RIGHT KIDNEY: Unremarkable. There is no hydronephrosis. No shadowing calculus. No focal lesion or perinephric collection is demonstrated. US/Abdomen Limited IMPRESSION: 1. Liver cirrhosis. 2. 2 cm liver lesion of uncertain etiology. Follow-up MRI of the liver with and without contrast recommended. Electronically Signed: Erik Warren MD at 10:21 EDT ,
== END | disposition home or self-care (01) ==
PROVIDERS: PCP Family Medicine; Visit Provider Internal Medicine Gastroenterology
DX: K74.60 Unspecified cirrhosis of liver (principal); R18.8 Other ascites
CPT/HCPCS: 76705

== ENCOUNTER 2022-03-06 16:19 | Outpatient (RCR) | payer BC, SELFPAY ==
[2022-03-06 18:16] LABS: Anion Gap 6 (5-15); BUN 22 mg/dL (7-18); BUN/Creat Ratio 20.6 RATIO (10-20); Calcium,Total 9.1 mg/dL (8.5-10.1); Chloride 104 mmol/L (98-107); Creatinine, Serum 1.07 mg/dL (0.70-1.30); EST Glomerular Filtration Rate 75 mL/min (>60); Est Glom Filt Rate - Afr Amer 91 mL/min (>60); Glucose 88 mg/dL (74-106); Sodium Level 136 mmol/L (136-145)
== END 2022-03-06 18:00 | disposition home or self-care (01) ==
LOC: MTLAB 16:19
PROVIDERS: PCP Family Medicine; Referring Provider Internal Medicine Gastroenterology; Visit Provider Internal Medicine Gastroenterology
DX: R18.8 Other ascites; K70.30 Alcoholic cirrhosis of liver without ascites
CPT/HCPCS: 36415; 80048

== ENCOUNTER 2022-05-04 10:21 | Outpatient (RCR) | payer BC, SELFPAY ==
[2022-05-04 12:48] LABS: Anion Gap 5 (5-15); BUN 16 mg/dL (7-18); BUN/Creat Ratio 18.6 RATIO (10-20); Chloride 107 mmol/L (98-107); Creatinine, Serum 0.86 mg/dL (0.70-1.30); EST Glomerular Filtration Rate 97 mL/min (>60); Est Glom Filt Rate - Afr Amer 117 mL/min (>60); Glucose 119 mg/dL (74-106); Potassium 4.3 mmol/L (3.5-5.1); Sodium Level 138 mmol/L (136-145)
== END 2022-05-27 03:30 | disposition home or self-care (01) ==
LOC: MTLAB 10:21
PROVIDERS: PCP Family Medicine; Referring Provider Internal Medicine Gastroenterology; Visit Provider Internal Medicine Gastroenterology
DX: R18.8 Other ascites (principal); K70.30 Alcoholic cirrhosis of liver without ascites; Z79.899 Other long term (current) drug therapy
CPT/HCPCS: 36415; 80048

== ENCOUNTER → 2022-06-05 | Outpatient (CLI) | payer BC, SELFPAY ==
[2022-06-05 18:14] LABS: Hematocrit 35.6 % (40-54); Hemoglobin 12.3 g/dL (13.0-16.5); Mean Corp Hgb Conc 34.6 g/dL (32-36); Mean Corpuscular Hgb 34.3 pg (27.0-32.0); Mean Corpuscular Volume 99.2 fL (80-94); Mean Platelet Vol. 11.8 fl (6.2-12.0); POSITIVE COUNT YES; Platelet Count 96 K/mm3 (150-450); RBC Distribution Width CV 13.7 % (11.6-14.6); RBC Distribution Width SD 50.4 fl (35.1-43.9); Red Blood Count 3.59 M/mm3 (4.6-6.2)
[2022-06-05 18:20] LABS: International Normalized Ratio 1.2; Partial Thromboplast Time 36.6 Seconds (24.1-36.2); Prothrombin Time (Protime)PT. 15.3 SECONDS (11.7-14.9)
[2022-06-05 18:57] LABS: Differential Comment SEE ABOVE; Scan Indicated on CBC? Y/N YES- FLAGS NOTED
[2022-06-07 08:42] LABS: AFP, Tumor Marker 5.2 ng/mL (0.0-8.4)
== END | disposition home or self-care (01) ==
LOC: MTLAB 16:17
PROVIDERS: PCP Family Medicine; Referring Provider Internal Medicine Gastroenterology; Visit Provider Internal Medicine Gastroenterology
DX: K74.60 Unspecified cirrhosis of liver (principal)
CPT/HCPCS: 36415; 82105; 85027; 85610; 85730

== ENCOUNTER 2022-07-30 11:52 | Emergency (ER) | payer BC, SELFPAY ==
[2022-07-30 11:52] VITALS: BP 142/75; PULSE 69; RESP 16; TEMP 36.4; O2SAT 100; BMI 43.0
--- NOTE | 2022-07-30 12:07 | CT_ITS ---
STUDY: CT ABDOMEN AND PELVIS WITH CONTRAST REASON FOR EXAM: Male, 57 years old. History of ascites and cirrhosis. Bilateral flank pain. RADIATION DOSAGE (If Supplied By Facility): CTDIvol = ( 21.38 ) mGy, DLP = ( 1760.11 ) mGycm TECHNIQUE: Transaxial images were obtained from the dome of the diaphragm to the symphysis pubis without oral contrast. IV 100mL Isovue-300 was administered. Sagittal and coronal images were reconstructed. Individualized dose optimization techniques were used for this CT. COMPARISON: Comparison is made with prior examination dated 03/01/2021. FINDINGS: The visualized lung bases are unremarkable. The visualized portions of the heart are within normal limits. There is a diffuse contour abnormality of the liver consistent with cirrhotic changes. Normal gallbladder and extrahepatic biliary system. There is moderate splenomegaly. Findings in keeping with the varices in the splenic hilum and esophageal varices. Normal pancreas. Diffuse ascites. Normal bilateral adrenal glands. Normal right kidney. Normal left kidney. Normal visualized stomach. Normal small intestine. Normal colon. The appendix is visualized and appears normal. Normal abdominal aorta. Normal inferior vena cava. Normal retroperitoneum. Increased soft tissue density in the root of the mesentery most likely secondary to the presence of ascites. Normal urinary bladder. Normal abdominal wall. There are degenerative changes of the visualized lumbar spine. CT/Abdomen/Pelvis W IV Cont ONLY IMPRESSION: Findings suggestive of cirrhosis. Splenomegaly. Varices. Diffuse ascites. Electronically Signed: Tutu Tong MD at 13:10 EDT ,
--- NOTE | 2022-07-30 12:07 | ED.VIS.GI ---
HPI HPI - GI History of Present Illness Chief Complaint: Flank Pain Narrative Narrative: 57-year-old male past medical history of alcoholic liver cirrhosis, and ascites presents with bilateral lower quadrant abdominal pain that he has had since this morning. He states he took his medications at around 830 or 9:00 and 15 minutes later developed sharp stabbing pain in his lower abdomen. It has since subsided, but is now dull and achy. He denies any dysuria or hematuria. Had a normal bowel movement today, at least normal for him. He states he is recently started a medication for narcolepsy a few weeks ago, and intermittently has abdominal pain a week after he takes it/started it. He denies any nausea or vomiting. No fevers or chills. Of note, he has had previous hemicolectomy from a blockage that may have been related to diverticular disease. He states Dr. English remotely performed the surgery. He denies any true exacerbating or alleviating factors. [facility] Medical History Ascites due to alcoholic cirrhosis Congestive heart failure Narcolepsy Obstructive sleep apnea Home Medications Vitamin C 08/02/21 [History Last Taken Unknown] furosemide 40 mg tablet 40 mg PO DAILY 08/02/21 [History Last Taken Unknown] lactulose 10 gram/15 mL oral solution 10 g PO DAILY 08/02/21 [History Last Taken Unknown] niacin 500 mg PO.IVFORM DAILY 08/02/21 [History Last Taken Unknown] nystatin 100,000 unit/gram topical cream topical 08/02/21 [History Last Taken Unknown] pantoprazole 40 mg tablet,delayed release 40 mg PO DAILY 08/02/21 [History Last Taken Unknown] rifaximin 550 mg tablet (Xifaxan) 550 mg PO BID 08/02/21 [History Last Taken Unknown] spironolactone 100 mg tablet 100 mg PO DAILY 08/02/21 [History Last Taken Unknown] triamcinolone acetonide 0.1 % topical cream applic topical 08/02/21 [History Last Taken Unknown] zaleplon 10 mg capsule mg 08/02/21 [History Last Taken Unknown] dicyclomine 20 mg tablet 20 mg PO BID PRN abdominal discomfort #20 tabs 07/30/22 [Rx Last Taken Unknown] multivitamin 1 tab PO DAILY 07/30/22 [History Last Taken Unknown] sodium, calcium, magnesium, potassium oxybates 0.5 gram/mL oral soln (Xywav) 2.25 g PO BID 07/30/22 [History Last Taken Unknown] Allergy/AdvReac Type Severity Reaction Status Date / Time shellfish derived Allergy Anaphylaxis Verified 07/30/22 11:52 Social History Smoking Status: Never smoker ROS ROS ED ROS Narrative Constitutional: No fever, no chills. HEENT: No sore throat. No neck pain. No loss of vision. No rhinorrhea. Cardiovascular: No chest pain. No palpitations. No pedal edema. Respiratory: No cough, no shortness of breath. Abdominal: Bilateral lower quadrant abdominal pain. No nausea. No vomiting. Genitourinary: No dysuria. No hematuria. Musculoskeletal: No myalgias. No arthralgias. Neurologic: No headaches. No dizziness. No lightheadedness. Skin: No rash. No change in color. Psychiatric: No depression. No anxiety. EXAM Physical Exam Narrative Exam Narrative: Afebrile. Vital signs noted. HEENT: Normocephalic. Atraumatic. PERRL, EOMI. Neck soft and supple. No point tenderness or step off. Cardiovascular: Regular rate and rhythm. No murmurs, rubs, or gallops appreciated. Respiratory: No tachypnea. Lungs clear to auscultation bilaterally. Gastrointestinal: Abdomen soft, nontender, with normoactive bowel sounds. No rebound or guarding. Neurological: Awake. Alert. Nonfocal, nonlateralizing. Skin: No rash. Normal color. No pallor. Musculoskeletal: No pedal edema. Full range of motion extremities. Const Vital Signs: 07/30/22 11:52 07/30/22 12:05 Temperature 97.6 F L Temperature Source Temporal Pulse Rate 69 Respiratory Rate 16 Respiratory Effort Normal Non-Labored Blood Pressure 142/75 H Blood Pressure Mean 97 Pulse Ox 100 Oxygen Delivery Method Room Air MDM MDM MDM Narrative Medical decision making narrative: Comprehensive work-up was pursued. CBC shows normal white count of 7.4, hemoglobin stable at 12.3, hematocrit 35.9. Platelet count low at 123, but this is a chronic thrombocytopenia. CMP shows chloride high at 108, sodium and potassium normal. BUN of 25 with a creatinine of 1.07. Glucose appropriately elevated at 112 with a normal anion gap of 8. LFTs show AST of 55 and ALT normal at 31 with alk phos slightly elevated to 68. Urinalysis shows no evidence of infection. CT of the abdomen and pelvis is consistent with cirrhosis with splenomegaly, varices, and diffuse ascites. At this point in time, upon repeat examination he is resting comfortably on the cot. His abdomen remains soft. I feel he can be discharged safely home with follow-up. He will be given a prescription for Bentyl for his abdominal discomfort. Return instructions to the emergency department were reviewed. Disposition is discharged home in stable condition. Lab Data Attestation: I reviewed the patient's lab results. Labs: Laboratory Results - last 24 hr 07/30/22 07/30/22 07/30/22 12:20 12:20 13:08 WBC 7.4 RBC 3.64 L Hgb 12.3 L Hct 35.9 L MCV 98.6 H MCH 33.8 H MCHC 34.3 RDW Std Deviation 49.9 H RDW Coeff of Olvin 13.8 Plt Count 123 L MPV 10.8 Immature Gran % (Auto) 0.400 Neut % (Auto) 74.2 H Lymph % (Auto) 7.7 L [place] % (Auto) 12.1 H Eos % (Auto) 4.7 Baso % (Auto) 0.9 Absolute Neuts (auto) 5.5 Absolute Lymphs (auto) 0.57 L Nucleated RBC % 0 Differential Comment Platelet Estimate SLT DEC RBC Morphology NORM C+C Sodium 139 Potassium 4.3 Chloride 108 H Carbon Dioxide 23.0 Anion Gap 8 BUN 25 H Creatinine 1.07 Estim Creat Clear Calc 76.75 Est GFR (MDRD) Af Amer 91 Est GFR (MDRD) Non-Af 75 BUN/Creatinine Ratio 23.4 H Glucose 112 H Calcium 8.7 Total Bilirubin 3.40 H AST 55 H ALT 31 Alkaline Phosphatase 268 H Total Protein 5.8 L Albumin 2.5 L Globulin 3.3 Albumin/Globulin Ratio 0.8 L Urine Color Yellow Urine Clarity Clear Urine pH 6.0 Ur Specific [place] 1.010 Urine Protein Negative Urine Glucose (UA) Normal Urine Ketones Negative Urine Occult Blood Negative Urine Nitrite Negative Urine Bilirubin Negative Urine Urobilinogen Normal Ur Leukocyte Esterase Negative Urine RBC 0 SEEN Urine WBC 0 SEEN Ur Squamous Epith Cells 0 SEEN Urine Bacteria 0 SEEN Urine Mucus 0 SEEN Radiography Diagnostic Testing: Clinical Impression(s) from Imaging Studies Abdomen/Pelvis CT 07/30/22 12:07 IMPRESSION: Findings suggestive of cirrhosis. Splenomegaly. Varices. Diffuse ascites. Electronically Signed: Tutu Tong MD at 13:10 EDT , Discharge Plan Triage Chief Complaint: Flank Pain ED Provider: Edward Viera Dx/Rx/DC Orders Clinical Impression: Abdominal pain, Ascites, Cirrhosis Instructions: ED Ascites, ED Cirrhosis, ED Abdominal Pain Unkn Cause Male... Prescriptions: New dicyclomine 20 mg tablet 20 mg PO BID PRN (Reason: abdominal discomfort) Qty: 20 0RF No Action furosemide 40 mg tablet 40 mg PO DAILY Label Comments: take 1 tablet by mouth once daily (2 TABS ON SATURDAY AND SATURDAY) spironolactone 100 mg tablet 100 mg PO DAILY Label Comments: take 2 tablets by mouth once daily triamcinolone acetonide 0.1 % cream TOPICAL Label Comments: APPLY 1 APPLICATION TO AFFECTED AREA TWICE DAILY pantoprazole 40 mg tablet,delayed release (DR/EC) 40 mg PO DAILY nystatin 100,000 unit/gram cream TOPICAL Label Comments: APPLY TO PENIS TWICE DAILY NEEDED zaleplon 10 mg capsule Label Comments: take 1 capsule by mouth BEFORE SLEEP STUDY lactulose 10 gram/15 mL solution 10 g PO DAILY Label Comments: Take 60 Milliliter by mouth three times daily Xifaxan 550 mg tablet 550 mg PO BID Label Comments: TAKE 1 TABLET BY MOUTH TWO TIMES A DAY Vitamin C niacin 500 mg PO.IVFORM DAILY Xywav 0.5 gram/mL Solution 2.25 g PO BID Rx Instructions: administer the first dose at bedtime and the second dose 2.5-4 hours later multivitamin Tablet 1 tab PO DAILY Primary Care Provider: Jake Fraser Referrals: Jake Fraser MD [Primary Care Provider] - 3-5 Days if not improving Disposition Disposition: Home, Self Care
[2022-07-30] MEDS: 0.9% Normal Saline 1,000 ML 125 ML IV (12:18)
[2022-07-30 12:30] LABS: Absolute Lymphocyte Count 0.57 X10^3/uL (0.83-4.51); Absolute Neutrophil Count 5.5 X10^3/uL (2.0-7.7); Basophil# 0.07 X10^3/uL; Basophil% 0.9 % (0-1); Eosinophil# 0.35 X10^3/uL; Eosinophils% 4.7 % (0-5); Hematocrit 35.9 % (40-54); Hemoglobin 12.3 g/dL (13.0-16.5); Lymphocyte # 0.57 X10^3/ul (0.83-4.51); Lymphocyte % 7.7 % (19-41); Mean Corp Hgb Conc 34.3 g/dL (32-36); Mean Corpuscular Hgb 33.8 pg (27.0-32.0); Mean Corpuscular Volume 98.6 fL (80-94); Mean Platelet Vol. 10.8 fl (6.2-12.0); Monocyte% 12.1 % (0-10); NRBC Flagged by Analyzer 0 % (0-5); Neutrophil % 74.2 % (47-70); POSITIVE DIFFERENTIAL YES; Platelet Count 123 K/mm3 (150-450); RBC Distribution Width CV 13.8 % (11.6-14.6); RBC Distribution Width SD 49.9 fl (35.1-43.9); Red Blood Count 3.64 M/mm3 (4.6-6.2); White Blood Count 7.4 K/mm3 (4.4-11.0)
[2022-07-30 12:35] LABS: Differential Indicated SCAN CRITERIA MET
[2022-07-30 12:45] LABS: ALB/GLOB Ratio 0.8 RATIO (0.9-2.4); AST(SGOT) 55 U/L (15-37); Alanine Aminotransfer ALT/SGPT 31 U/L (16-61); Albumin, Serum 2.5 g/dL (3.2-5.0); Alkaline Phosphatase 268 U/L (45-117); Anion Gap 8 (5-15); BUN 25 mg/dL (7-18); BUN/Creat Ratio 23.4 RATIO (10-20); Calcium,Total 8.7 mg/dL (8.5-10.1); Chloride 108 mmol/L (98-107); Creatinine, Serum 1.07 mg/dL (0.70-1.30); EST Glomerular Filtration Rate 75 mL/min (>60); Est Glom Filt Rate - Afr Amer 91 mL/min (>60); Estimated Creatinine Clearance 76.75 ml/min; Globulin 3.3 g/dL (2.2-4.2); Glucose 112 mg/dL (74-106); Potassium 4.3 mmol/L (3.5-5.1); Protein, Total 5.8 g/dL (6.4-8.2); Sodium Level 139 mmol/L (136-145)
[2022-07-30 13:12] LABS: Bacteria 0 SEEN /hpf (None Seen); Mucous, Urine 0 SEEN /hpf (<or=2+); Red Blood Cells-Urine 0 SEEN /hpf (0-5); Squamous Epithelial Cells - UA 0 SEEN /hpf (0-5); White Blood Cells 0 SEEN /hpf (0-5)
[2022-07-30 13:12] LABS: Platelet Estimate SLT DEC (ADEQ); Red Cell Morphology NORM C+C NORMAL (NORM C&C)
[2022-07-30 13:40] LABS: Color, Urine Yellow (Yellow); Glucose, Dipstick Normal (Normal); Ketone-Dipstick Negative (Negative); Leukocyte Esterase-Dipstick Negative /ul (Negative); Nitrite-Dipstick Negative (Negative); Occult Blood-Urine Negative /ul (Negative); Protein-Dipstick Negative (Negative); Urine Bilirubin Dipstick Negative (Negative); Urine Clarity Clear (Clear); Urine Urobilinogen Normal (Normal)
[2022-07-30 14:35] VITALS: BP 148/69; PULSE 70; RESP 18; O2SAT 96
== END 2022-07-30 14:37 | disposition home or self-care (01) ==
PROVIDERS: Emergency Provider Emergency Medicine; PCP Family Medicine; Visit Provider Emergency Medicine
DX: K74.60 Unspecified cirrhosis of liver (principal); I50.9 Heart failure, unspecified; D69.6 Thrombocytopenia, unspecified; R18.8 Other ascites; Z87.19 Personal history of other diseases of the digestive system
CPT/HCPCS: 74177; 80053; 81001; 85025; 96360; 96361; 99283; J7030; Q9967; A4216

== ENCOUNTER → 2022-08-17 | Outpatient (CLI) | payer BC, SELFPAY ==
[2022-08-17 17:52] LABS: International Normalized Ratio 1.4; Prothrombin Time (Protime)PT. 17.1 SECONDS (11.7-14.9)
[2022-08-17 18:35] LABS: ALB/GLOB Ratio 0.8 RATIO (0.9-2.4); AST(SGOT) 58 U/L (15-37); Alanine Aminotransfer ALT/SGPT 30 U/L (16-61); Albumin, Serum 2.6 g/dL (3.2-5.0); Alkaline Phosphatase 235 U/L (45-117); Anion Gap 8 (5-15); BUN 38 mg/dL (7-18); BUN/Creat Ratio 23.8 RATIO (10-20); Calcium,Total 8.8 mg/dL (8.5-10.1); Chloride 106 mmol/L (98-107); EST Glomerular Filtration Rate 47 mL/min (>60); Est Glom Filt Rate - Afr Amer 57 mL/min (>60); Globulin 3.2 g/dL (2.2-4.2); Glucose 104 mg/dL (74-106); Potassium 4.6 mmol/L (3.5-5.1); Protein, Total 5.8 g/dL (6.4-8.2); Sodium Level 136 mmol/L (136-145)
== END | disposition home or self-care (01) ==
LOC: MFPLAB 14:11
PROVIDERS: PCP Family Medicine; Referring Provider Family Medicine; Visit Provider Family Medicine
DX: K74.60 Unspecified cirrhosis of liver (principal)
CPT/HCPCS: 36415; 80053; 85610

== ENCOUNTER → 2022-08-23 | Outpatient (CLI) | payer BC, SELFPAY ==
--- NOTE | 2022-08-23 12:24 | US_ITS ---
PROCEDURE: Ultrasound guided paracentesis. DATE OF EXAMINATION: 08/23/2022. INDICATION: Male, 57 years old. Ascites. PHYSICIAN: Tutu Tong M.D. TECHNIQUE: The risks, benefits, and alternatives to the procedure were explained to the patient. The specific risks of bleeding, infection, and damage to bowel were detailed and accepted. Witnessed informed consent was obtained. The abdomen was ultrasonographically surveyed. An appropriate pocket of fluid was identified at the right lower quadrant. The skin were cleaned and prepped in the usual sterile fashion. Using ultrasound guidance, the peritoneal cavity was accessed with a 5-[place] paracentesis needle/catheter system. The trocar was removed. A total of 7800 ml of miguel-colored fluid were removed from the peritoneal cavity. The catheter was removed and a sterile dressing was applied. The procedure was well tolerated. US/Paracentesis with US IMPRESSION: Ultrasound guided paracentesis. Electronically Signed: Tutu Tong MD at 14:26 EDT ,
[2022-08-23 13:05] VITALS: BP 107/53; BP 109/43; BP 113/54; BP 113/55; BP 117/36; PULSE 67; PULSE 73; PULSE 74; PULSE 76; RESP 16; TEMP 36.9; O2SAT 96; O2SAT 97; O2SAT 98
[2022-08-23] MEDS: Lidocaine 2% (20 ml mdv) 20 ML Vial INFILT (13:10)
== END | disposition home or self-care (01) ==
PROVIDERS: PCP Family Medicine; Referring Provider Family Medicine; Visit Provider Family Medicine
DX: R18.8 Other ascites (principal); K74.60 Unspecified cirrhosis of liver
CPT/HCPCS: 49083

== ENCOUNTER → 2022-08-29 | Outpatient (CLI) | payer BC, SELFPAY ==
[2022-08-29 13:18] LABS: Anion Gap 8 (5-15); BUN 47 mg/dL (7-18); Calcium,Total 9.5 mg/dL (8.5-10.1); Chloride 103 mmol/L (98-107); Creatinine, Serum 1.74 mg/dL (0.70-1.30); EST Glomerular Filtration Rate 43 mL/min (>60); Est Glom Filt Rate - Afr Amer 52 mL/min (>60); Glucose 100 mg/dL (74-106); Potassium 5.3 mmol/L (3.5-5.1); Sodium Level 133 mmol/L (136-145)
== END | disposition home or self-care (01) ==
PROVIDERS: PCP Family Medicine; Referring Provider Internal Medicine Gastroenterology; Visit Provider Internal Medicine Gastroenterology
DX: K74.60 Unspecified cirrhosis of liver (principal)
CPT/HCPCS: 36415; 80048

== ENCOUNTER → 2022-08-30 | Outpatient (CLI) | payer BC, SELFPAY ==
--- NOTE | 2022-08-30 11:33 | US_ITS ---
PROCEDURE: Ultrasound guided paracentesis. DATE OF EXAMINATION: 08/30/2022. INDICATION: Male, 57 years old. Ascites. PHYSICIAN: Tutu Tong M.D. TECHNIQUE: The risks, benefits, and alternatives to the procedure were explained to the patient. The specific risks of bleeding, infection, and damage to bowel were detailed and accepted. Witnessed informed consent was obtained. The abdomen was ultrasonographically surveyed. An appropriate pocket of fluid was identified at the right lower quadrant. The skin were cleaned and prepped in the usual sterile fashion. Using ultrasound guidance, the peritoneal cavity was accessed with a 5-[place]ominican paracentesis needle/catheter system. The trocar was removed. A total of 5250 ml of blood-tinged fluid were removed from the peritoneal cavity. The catheter was removed and a sterile dressing was applied. The procedure was well tolerated. US/Paracentesis with US IMPRESSION: Ultrasound guided paracentesis. Electronically Signed: Tutu Tong MD at 13:40 EDT ,
[2022-08-30 12:39] VITALS: BP 104/47; BP 110/52; BP 113/44; BP 122/60; PULSE 69; PULSE 70; RESP 18; TEMP 36.8; O2SAT 100; O2SAT 97; O2SAT 98; O2SAT 99
[2022-08-30] MEDS: Lidocaine 2% (20 ml mdv) 20 ML Vial INFILT (12:44)
== END | disposition home or self-care (01) ==
LOC: US 11:32
PROVIDERS: PCP Family Medicine; Referring Provider Internal Medicine Gastroenterology; Visit Provider Internal Medicine Gastroenterology
DX: R18.8 Other ascites (principal); K74.60 Unspecified cirrhosis of liver
CPT/HCPCS: 49083

== ENCOUNTER → 2022-09-03 | Outpatient (CLI) | payer BC, SELFPAY ==
[2022-09-03 15:29] LABS: Absolute Neutrophil Count 7.6 X10^3/uL (2.0-7.7); Basophil# 0.09 X10^3/uL; Basophil% 0.9 % (0-1); Eosinophil# 0.34 X10^3/uL; Eosinophils% 3.4 % (0-5); Hematocrit 38.8 % (40-54); Hemoglobin 13.6 g/dL (13.0-16.5); Mean Corp Hgb Conc 35.1 g/dL (32-36); Mean Corpuscular Hgb 33.8 pg (27.0-32.0); Mean Corpuscular Volume 96.5 fL (80-94); Monocyte% 12.9 % (0-10); NRBC Flagged by Analyzer 0 % (0-5); Neutrophil # 7.59 X10^3/uL (2.7-7.7); Neutrophil % 75.5 % (47-70); POSITIVE DIFFERENTIAL YES; Platelet Count 195 K/mm3 (150-450); RBC Distribution Width CV 13.7 % (11.6-14.6); Red Blood Count 4.02 M/mm3 (4.6-6.2); White Blood Count 10.1 K/mm3 (4.4-11.0)
[2022-09-03 15:30] LABS: Differential Indicated SCAN CRITERIA MET
[2022-09-03 15:50] LABS: ALB/GLOB Ratio 0.7 RATIO (0.9-2.4); AST(SGOT) 59 U/L (15-37); Alanine Aminotransfer ALT/SGPT 34 U/L (16-61); Albumin, Serum 2.5 g/dL (3.2-5.0); Alkaline Phosphatase 305 U/L (45-117); Anion Gap 10 (5-15); BUN 59 mg/dL (7-18); BUN/Creat Ratio 27.8 RATIO (10-20); Chloride 99 mmol/L (98-107); Creatinine, Serum 2.12 mg/dL (0.70-1.30); EST Glomerular Filtration Rate 34 mL/min (>60); Est Glom Filt Rate - Afr Amer 41 mL/min (>60); Globulin 3.7 g/dL (2.2-4.2); Glucose 90 mg/dL (74-106); Potassium 5.1 mmol/L (3.5-5.1); Protein, Total 6.2 g/dL (6.4-8.2); Sodium Level 128 mmol/L (136-145)
== END | disposition home or self-care (01) ==
LOC: MFPLAB 11:52
PROVIDERS: PCP Family Medicine; Referring Provider Family Medicine; Visit Provider Family Medicine
DX: K74.60 Unspecified cirrhosis of liver (principal)
CPT/HCPCS: 36415; 80053; 82140; 85025

== ENCOUNTER 2022-09-04 15:22 | Inpatient (IN) | payer BC, SELFPAY ==
[2022-09-04] VITALS (9 sets, daily range): BP systolic 113–134; BP diastolic 56–85; PULSE 75–86; RESP 15–19; TEMP 36.6–37.3; O2SAT 98–100; BMI 40.4
--- NOTE | 2022-09-04 16:12 | EX.ED.DYSGE1 ---
HPI History of Present Illness Chief Complaint: Shortness of Breath Informant: patient Onset/Context/Timing Onset: Month(s) (1) Context: Gradual Onset Timing: Continuous Quality: Weakness Location: Generalized Worsened by: Exertion Relieved by: Nothing Narrative Narrative: Patient presents with dyspnea, weakness, and fatigue that has been gradually getting worse over the last month. Patient states he feels weak all over. Patient also admits to some diffuse abdominal pain. Patient has a history of cirrhosis and liver failure. Patient states he had a recent ammonia level that was elevated. Patient denies any confusion. Patient states his breathing is worse with any exertion. Patient denies any chest pain. Patient admits to some nausea but denies any vomiting. Patient denies any diarrhea, melena, or hematochezia. Patient did have a recent paracentesis. [facility] Medical History (Updated 09/04/22 @ 21:[address] Isreal Blanca DO) Ascites due to alcoholic cirrhosis Congestive heart failure Narcolepsy Obstructive sleep apnea Home Medications furosemide 40 mg tablet 40 mg PO MOWEFR 08/02/21 [History Last Taken Unknown] lactulose 10 gram/15 mL oral solution 20 g PO TID 08/02/21 [History Last Taken Unknown] pantoprazole 40 mg tablet,delayed release 40 mg PO BID 08/02/21 [History Last Taken Unknown] rifaximin 550 mg tablet (Xifaxan) 550 mg PO BID 08/02/21 [History Last Taken Unknown] spironolactone 100 mg tablet 100 mg PO DAILY 08/02/21 [History Last Taken Unknown] carvedilol 3.125 mg tablet 1.56 mg PO BID 09/04/22 [History Last Taken Unknown] modafinil 100 mg tablet 100 mg PO 0900 09/04/22 [History Last Taken Unknown] modafinil 100 mg tablet 100 mg PO 1300 09/04/22 [History Last Taken Unknown] modafinil 200 mg tablet 200 mg PO DAILY 09/04/22 [History Last Taken Unknown] Allergy/AdvReac Type Severity Reaction Status Date / Time shellfish derived Allergy Anaphylaxis Verified 09/04/22 15:23 Surgical History (Updated 09/04/22 @ 16:[address] Isreal Blanca DO) H/O partial resection of colon Social History Smoking Status: Never smoker ROS ROS ED Constitutional Constitutional ED: Denies chills or fever(s) Eyes Eyes: Denies blurry vision or change in vision ENT ENT ED: Denies rhinorrhea or sore throat Cardiovascular Cardiovascular: Denies chest pain or palpitations Respiratory/Chest Respiratory/Chest: Reports cough and dyspnea Gastrointestinal Gastrointestinal: Reports abdominal pain and nausea; Denies vomiting Genitourinary Genitourinary ED: Denies dysuria or hematuria Musculoskeletal Musculoskeletal: Denies back pain or neck pain Integumentary Denies abscess or rash Neurologic Neurologic: Denies headache(s) or weakness Allergic/Immunologic Allergic/Immunologic ED: Denies mouth swelling or urticaria EXAM Physical Exam Const Vital Signs: 09/04/22 15:24 09/04/22 15:40 09/04/22 17:23 Temperature 98 F Temperature Source Temporal Pulse Rate 82 77 Respiratory Rate 18 15 Respiratory Effort Normal Non-Labored Respiratory Depth Normal Respiratory Pattern Normal Blood Pressure 132/85 H 113/56 L Blood Pressure Mean 100 75 Pulse Ox 100 98 Oxygen Delivery Method Room Air Room Air Room Air 09/04/22 19:00 09/04/22 20:33 Temperature 97.9 F Temperature Source Temporal Pulse Rate 78 75 Respiratory Rate 15 18 Respiratory Effort Respiratory Depth Respiratory Pattern Blood Pressure 133/76 H 126/70 H Blood Pressure Mean 95 88 Pulse Ox 99 99 Oxygen Delivery Method Room Air Room Air Positive well nourished and well developed General Appearance ED: well developed and NAD HEENT Reports moist mucous membranes Neck supple and no JVD Resp normal respiratory effort and clear to auscultation bilaterally Cardio regular rate, regular rhythm and no murmurs GI normal to inspection, nondistended, normoactive bowel sounds Palpation: soft and tender epigastric, LLQ, RLQ, LUQ, RUQ, periumbilical and suprapubic; Negative for guarding or rebound tenderness present Extremity normal to inspection General Extremety ED: Negative for edema or tenderness General Extremity: Negative for edema Neuro oriented x3, CN's II-XII intact bilaterally and no sensory deficits noted Sensorium / Orientation: alert Motor Exam: strength 5/5 throughout Psych mental status grossly normal Skin no rashes or lesions noted MDM MDM MDM Narrative Medical decision making narrative: CBC was within normal limits. PT was 16.3 and INR was 1.3. PTT was 32.4. Comprehensive metabolic profile shows a mild hyperkalemia 5.2. CO2 was 19.0. Anion gap was normal. BUN was 61 and creatinine was 1.93. Total bilirubin was 3.4. This is consistent with prior results. Alkaline phosphatase was slightly elevated at 312. This is also consistent with prior results. Lipase was normal. Lactate was normal. Ammonia level was normal. Urinalysis does not show any evidence of urinary tract infection. Portable 1 view chest x-ray was obtained. On my interpretation, lung kaye are clear. There is normal cardiac silhouette. Bony thorax is normal. There is no acute process noted. Radiologist also interpreted the x-ray and agrees. CT scan of the abdomen pelvis was obtained. There is cirrhosis noted. There is a large amount of free fluid, consistent with ascites. There is no evidence of obstruction. This was unchanged compared to previous CT scan. This was interpreted by the radiologist and reviewed by myself. Patient was still having some dyspnea with ambulation although his oxygen saturation was stable with ambulation. Case was discussed with the hospitalist. She will admit the patient to her service. Patient understood and was agreeable with the plan. All questions were answered. Lab Data Attestation: I reviewed the patient's lab results. Labs: Laboratory Results - last 24 hr 09/04/22 09/04/22 09/04/22 15:37 15:37 15:37 WBC 9.8 RBC 4.07 L Hgb 13.7 Hct 38.8 L MCV 95.3 H MCH 33.7 H MCHC 35.3 RDW Std Deviation 48.5 H RDW Coeff of [place] 13.8 Plt Count 202 MPV 10.8 Immature Gran % (Auto) 1.000 H Neut % (Auto) 73.9 H Lymph % (Auto) 6.8 L [place] % (Auto) 14.1 H Eos % (Auto) 3.4 Baso % (Auto) 0.8 Absolute Neuts (auto) 7.3 Absolute Lymphs (auto) 0.67 L Nucleated RBC % 0 PT 16.3 H INR 1.3 APTT 32.4 Sodium 132 L Potassium 5.2 H Chloride 105 Carbon Dioxide 19.0 L Anion Gap 8 BUN 61 H Creatinine 1.93 H Estim Creat Clear Calc 42.55 Est GFR (MDRD) Af Amer 46 L Est GFR (MDRD) Non-Af 38 L BUN/Creatinine Ratio 31.6 H Glucose 100 Lactic Acid Calcium 9.1 Total Bilirubin 3.40 H AST 63 H ALT 32 Alkaline Phosphatase 312 H Ammonia Total Protein 6.2 L Albumin 2.5 L Globulin 3.7 Albumin/Globulin Ratio 0.7 L Lipase 163 Urine Color Urine Clarity Urine pH Ur Specific [place] Urine Protein Urine Glucose (UA) Urine Ketones Urine Occult Blood Urine Nitrite Urine Bilirubin Urine Urobilinogen Ur Leukocyte Esterase Urine RBC Urine WBC Ur Squamous Epith Cells Urine Bacteria Hyaline Casts Urine Mucus 09/04/22 09/04/22 09/04/22 15:37 15:37 18:23 WBC RBC Hgb Hct MCV MCH MCHC RDW Std Deviation RDW Coeff of [place] Plt Count MPV Immature Gran % (Auto) Neut % (Auto) Lymph % (Auto) [place] % (Auto) Eos % (Auto) Baso % (Auto) Absolute Neuts (auto) Absolute Lymphs (auto) Nucleated RBC % PT INR APTT Sodium Potassium Chloride Carbon Dioxide Anion Gap BUN Creatinine Estim Creat Clear Calc Est GFR (MDRD) Af Amer Est GFR (MDRD) Non-Af BUN/Creatinine Ratio Glucose Lactic Acid 1.5 Calcium Total Bilirubin AST ALT Alkaline Phosphatase Ammonia 26.0 Total Protein Albumin Globulin Albumin/Globulin Ratio Lipase Urine Color [place] Urine Clarity Clear Urine pH 5.0 Ur Specific [place] 1.025 Urine Protein 15 H Urine Glucose (UA) Normal Urine Ketones 5 H Urine Occult Blood Negative Urine Nitrite Negative Urine Bilirubin Negative Urine Urobilinogen Normal Ur Leukocyte Esterase 25 H Urine RBC 0 SEEN Urine WBC 0-5 SEEN Ur Squamous Epith Cells 0-5 SEEN Urine Bacteria RARE Hyaline Casts 0-5 SEEN Urine Mucus 0 SEEN Radiography Chest X-Ray - ED: 1 View, Read by ED Physician, Read by Radiologist and No Acute Disease Diagnostic Testing: Clinical Impression(s) from Imaging Studies Abdomen CT 09/04/22 16:58 IMPRESSION: Nodular margin of the liver compatible with cirrhosis. There is a large amount of free fluid in the abdomen and pelvis compatible with ascites. There is mild splenomegaly with splenic varices. There has been no significant change from reference exam. Electronically Signed: Modesto Flores MD at 18:06 EST , Chest X-Ray 09/04/22 20:00 IMPRESSION: No radiographic evidence of acute cardiopulmonary disease. Electronically Signed: Modesto Flores MD at 20:48 EST , Discharge Plan Triage Chief Complaint: Shortness of Breath Other Complaint: Abd Pain ED Provider: Isreal Blanca Dx/Rx/DC Orders Clinical Impression: Dyspnea on exertion, Cirrhosis Prescriptions: No Action furosemide 40 mg tablet 40 mg PO MOWEFR Label Comments: take 1 tablet by mouth once daily (2 TABS ON SATURDAY AND SATURDAY) spironolactone 100 mg tablet 100 mg PO DAILY Label Comments: take 2 tablets by mouth once daily pantoprazole 40 mg tablet,delayed release (DR/EC) 40 mg PO BID lactulose 10 gram/15 mL solution 20 g PO TID Xifaxan 550 mg tablet 550 mg PO BID Label Comments: TAKE 1 TABLET BY MOUTH TWO TIMES A DAY modafinil 200 mg tablet 200 mg PO DAILY Label Comments: take 1 tablet by mouth every morning and 1 tablet by mouth every evening modafinil 100 mg Tablet 100 mg PO 0900 modafinil 100 mg Tablet 100 mg PO 1300 carvedilol 3.125 mg tablet 1.56 mg PO BID Label Comments: START WITH 1 TAB once daily for 7 days then INCREASE to 1 tablet by mouth twice a day Rx Instructions: takes 1/2 of 3.125 mg BID Primary Care Provider: Jake Fraser Referrals: Jake Fraser MD [Primary Care Provider] - Disposition Disposition: Acute Care Hospital [facility]
[2022-09-04 16:18] LABS: Absolute Lymphocyte Count 0.67 X10^3/uL (0.83-4.51); Absolute Neutrophil Count 7.3 X10^3/uL (2.0-7.7); Basophil# 0.08 X10^3/uL; Basophil% 0.8 % (0-1); Eosinophil# 0.33 X10^3/uL; Eosinophils% 3.4 % (0-5); Hematocrit 38.8 % (40-54); Hemoglobin 13.7 g/dL (13.0-16.5); Lymphocyte # 0.67 X10^3/ul (0.83-4.51); Lymphocyte % 6.8 % (19-41); Mean Corp Hgb Conc 35.3 g/dL (32-36); Mean Corpuscular Hgb 33.7 pg (27.0-32.0); Mean Corpuscular Volume 95.3 fL (80-94); Mean Platelet Vol. 10.8 fl (6.2-12.0); Monocyte# 1.39 X10^3/uL; Monocyte% 14.1 % (0-10); NRBC Flagged by Analyzer 0 % (0-5); Neutrophil # 7.26 X10^3/uL (2.7-7.7); Neutrophil % 73.9 % (47-70); Platelet Count 202 K/mm3 (150-450); RBC Distribution Width CV 13.8 % (11.6-14.6); RBC Distribution Width SD 48.5 fl (35.1-43.9); Red Blood Count 4.07 M/mm3 (4.6-6.2); White Blood Count 9.8 K/mm3 (4.4-11.0)
[2022-09-04 16:40] LABS: ALB/GLOB Ratio 0.7 RATIO (0.9-2.4); AST(SGOT) 63 U/L (15-37); Alanine Aminotransfer ALT/SGPT 32 U/L (16-61); Albumin, Serum 2.5 g/dL (3.2-5.0); Alkaline Phosphatase 312 U/L (45-117); Anion Gap 8 (5-15); BUN 61 mg/dL (7-18); BUN/Creat Ratio 31.6 RATIO (10-20); Calcium,Total 9.1 mg/dL (8.5-10.1); Chloride 105 mmol/L (98-107); Creatinine, Serum 1.93 mg/dL (0.70-1.30); EST Glomerular Filtration Rate 38 mL/min (>60); Est Glom Filt Rate - Afr Amer 46 mL/min (>60); Estimated Creatinine Clearance 42.55 ml/min; Globulin 3.7 g/dL (2.2-4.2); Glucose 100 mg/dL (74-106); International Normalized Ratio 1.3; Lipase 163 U/L (73-393); Potassium 5.2 mmol/L (3.5-5.1); Protein, Total 6.2 g/dL (6.4-8.2); Prothrombin Time (Protime)PT. 16.3 SECONDS (11.7-14.9); Sodium Level 132 mmol/L (136-145)
[2022-09-04 16:41] LABS: Partial Thromboplast Time 32.4 Seconds (24.1-36.2)
--- NOTE | 2022-09-04 16:58 | CT_ITS ---
EXAM: CT ABDOMEN AND PELVIS WITHOUT INTRAVENOUS CONTRAST CLINICAL INDICATION: Abdominal pain TECHNIQUE: Helically acquired images were obtained of the abdomen and pelvis without intravenous contrast. This CT exam was performed using one or more of the following dose reduction techniques: automated exposure control, adjustment of the mA and/or kV according to patient size, and/or use of iterative reconstruction technique. This report was created using [employer] report generation technology. COMPARISON: 07/30/2022 FINDINGS: LOWER THORAX: Unremarkable. Lung bases are clear. No cardiomegaly. No significant pericardial effusion. ABDOMEN: LIVER: There is a nodular margin compatible with cirrhosis. GALLBLADDER AND BILE DUCTS: Unremarkable. No calcified gallstones. No gallbladder distention or wall edema. No intra- or extrahepatic biliary ductal dilation. PANCREAS: Unremarkable. No focal cystic mass. SPLEEN: Unremarkable. Normal size without focal cystic or solid mass. ADRENALS: Unremarkable. No nodules. KIDNEYS AND URETERS: Unremarkable. Normal renal size and position. No hydronephrosis. STOMACH AND BOWEL: Unremarkable. No stomach or bowel distention. No focal inflammatory change. PELVIS: APPENDIX: No evidence of acute appendicitis. BLADDER: Unremarkable. REPRODUCTIVE: Unremarkable as visualized. No mass. ABDOMEN and PELVIS: INTRAPERITONEAL SPACE: There is a large amount of free fluid in the abdomen and pelvis compatible with ascites. No free air. BONES/JOINTS: Unremarkable. No suspicious lytic or blastic abnormality. SOFT TISSUES: There is a small ventral hernia which contains mesenteric fat in the upper abdomen stable. VASCULATURE: Spleen is mildly enlarged in size but stable. There are varices in the splenic hilum. LYMPH NODES: Unremarkable. No enlarged lymph nodes. CT/Abdomen/Pel W ORAL Cont Only IMPRESSION: Nodular margin of the liver compatible with cirrhosis. There is a large amount of free fluid in the abdomen and pelvis compatible with ascites. There is mild splenomegaly with splenic varices. There has been no significant change from reference exam. Electronically Signed: Modesto Flores MD at 18:06 EST ,
[2022-09-04 17:03] LABS: Lactic Acid 1.5 mmol/L (0.4-1.9)
[2022-09-04 18:29] LABS: Mucous, Urine 0 SEEN /hpf (<or=2+); Red Blood Cells-Urine 0 SEEN /hpf (0-5)
[2022-09-04 18:39] LABS: Color, Urine Amber (Yellow); Glucose, Dipstick Normal (Normal); Ketone-Dipstick 5 mg/dl (Negative); Leukocyte Esterase-Dipstick 25 /ul (Negative); Nitrite-Dipstick Negative (Negative); Occult Blood-Urine Negative /ul (Negative); Protein-Dipstick 15 mg/dl (Negative); Specific Gravity, Urine 1.025 (1.002-1.030); Urine Bilirubin Dipstick Negative (Negative); Urine Clarity Clear (Clear); Urine Urobilinogen Normal (Normal)
[2022-09-04 18:48] LABS: Bacteria RARE /hpf (None Seen); Squamous Epithelial Cells - UA 0-5 SEEN /hpf (0-5); White Blood Cells 0-5 SEEN /hpf (0-5)
[2022-09-04 18:49] LABS: Hyaline Cast 0-5 SEEN /lpf (0-5)
--- NOTE | 2022-09-04 20:00 | RAD_ITS ---
EXAM: XR CHEST, 1 VIEW CLINICAL INDICATION: Dyspnea TECHNIQUE: Frontal view of the chest. This report was created using [employer] report generation technology. COMPARISON: 04/06/2020 FINDINGS: LUNGS AND PLEURAL SPACES: Unremarkable. No consolidation or edema. No pneumothorax. No effusion. HEART: Unremarkable. Cardiac silhouette not enlarged. MEDIASTINUM: Central airways and mediastinal contour are unremarkable. BONES/JOINTS: Unremarkable. SOFT TISSUES: Unremarkable. RAD/Chest 1 View (Portable) IMPRESSION: No radiographic evidence of acute cardiopulmonary disease. Electronically Signed: Modesto Flores MD at 20:48 EST ,
--- NOTE | 2022-09-04 20:36 | HP.PCM.HOS_ITS ---
HPI - General General Date of Admission: 09/04/22 Date of Service: 09/04/22 Chief Complaint: Dyspnea, weakness. HPI Narrative The patient is a 57 y/o M w/ PMHx: GERD, SOPHY on CPAP q HS, Chronic CHF, HTN, HLD, Hx EtOH abuse with Alcoholic cirrhosis, Former tobacco use who presents to the [facility] ED on 09/04/22 with history of approximately 1 month of progressively worsening fatigue, malaise and dyspnea, worse with exertion with diffuse generalized abdominal discomfort with noted history of cirrhotic liver disease with mildly recent ammonia elevations however he denies any recent confusions however given ongoing dyspnea and mild nausea prompted ED evaluation. Work-up in the ED included T 98, heart rate 82, BP 132/85, respiratory rate 18, 100% room air, CBC w/ WBC 9.8, Hgb 13.7, Plts 202 with L shift and lymphopenia, coags w/ PT 16.3, INR 1.3, PTT 43.4, CMP with sodium 132, potassium 5.2, carbon oxide 19, BUN/creat 16/1.920, lactic acid 1.5, T bili 3.40, AST/ALT 63/32, alk phos 312, lipase 163, UA w/ with elevated SG 1.025 otherwise not marked appearing, CT A/P with noted nodular margin of the liver compatible with cirrhosis, large amount of free fluid in the abdomen and pelvis compatible with ascites, mild splenomegaly with splenic varices, no significant change from reference exam, chest x-ray without acute cardiopulmonary findings upon preliminary but final read pending. He notes most recent paracentesis 5.5 L was removed. He follows with Dr. Romero. [facility] Medical History Alcoholic cirrhosis Congestive heart failure GERD (gastroesophageal reflux disease) History of ETOH abuse HLD (hyperlipidemia) HTN (hypertension) Narcolepsy Obstructive sleep apnea Past history of chewing tobacco use Home Medications furosemide 40 mg tablet 40 mg PO MOWEFR 08/02/21 [History Last Taken Unknown] lactulose 10 gram/15 mL oral solution 20 g PO TID 08/02/21 [History Last Taken Unknown] pantoprazole 40 mg tablet,delayed release 40 mg PO BID 08/02/21 [History Last Taken Unknown] rifaximin 550 mg tablet (Xifaxan) 550 mg PO BID 08/02/21 [History Last Taken Unknown] spironolactone 100 mg tablet 100 mg PO DAILY 08/02/21 [History Last Taken Unk nown] carvedilol 3.125 mg tablet 1.56 mg PO BID 09/04/22 [History Last Taken Unknown] modafinil 100 mg tablet 100 mg PO 0900 09/04/22 [History Last Taken Unknown] modafinil 100 mg tablet 100 mg PO 1300 09/04/22 [History Last Taken Unknown] modafinil 200 mg tablet 200 mg PO DAILY 09/04/22 [History Last Taken Unknown] Allergy/AdvReac Type Severity Reaction Status Date / Time shellfish derived Allergy Anaphylaxis Verified 09/04/22 15:23 Family History (Updated 09/04/22 @ 22:[address] Cici Forbes MD) Mother Alzheimer disease Father Heart disease Diabetes Surgical History (Updated 09/04/22 @ 22:[address] Cici Forbes MD) H/O partial resection of colon Social History (Updated 09/04/22 @ 22:[address] Cici Forbes MD) household members: spouse Smoking Status: Never smoker Smokeless tobacco user: chewing tobacco how long ago did patient quit smoking: Former chew tobacco, quit 2.5 years prior, chewed 1 can/day since 18. alcohol intake: former details: Quit 2.5 years prior with EtOH abuse history. substance use type: does not use ROS ROS Narrative Admission Review of Systems: CONSTITUTIONAL: No weight loss, fever, chills, + weakness or fatigue. HEENT: Eyes: No visual loss, blurred vision, double vision or yellow sclerae. Ears, Nose, Throat: No hearing loss, sneezing, congestion, runny nose or sore throat. SKIN: No rash or itching, lesions, wounds. CARDIOVASCULAR: No chest pain, chest pressure or chest discomfort, palpitations, edema, orthopnea, syncopal events. RESPIRATORY: + shortness of breath, No cough or sputum, wheezing, hemoptysis. GASTROINTESTINAL: + anorexia, nausea, abdominal distention, abdominal discomfort. No vomiting, melena, BRBPR. GENITOURINARY: No dysuria, frequency, urgency or retention. NEUROLOGICAL: No headache, dizziness, syncope, paralysis, ataxia, numbness or tingling in the extremities, focal weakness, change in bowel or bladder control, seizure. MUSCULOSKELETAL: + muscle, back pain, joint pain or stiffness. HEMATOLOGIC: No anemia, bleeding or bruising. LYMPHATICS: No enlarged nodes. No history of splenectomy. PSYCHIATRIC: No history of depression or anxiety. ENDOCRINOLOGIC: No reports of sweating, cold or heat intolerance. No polyuria or polydipsia. ALLERGIES: No history of asthma, hives, eczema or rhinitis. Vital Signs Vital Signs Vital Signs: 09/04/22 15:24 09/04/22 15:40 09/04/22 17:23 Temperature 98 F Temperature Source Temporal Pulse Rate 82 77 Respiratory Rate 18 15 Respiratory Effort Normal Non-Labored Respiratory Depth Normal Respiratory Pattern Normal Blood Pressure 132/85 H 113/56 L Blood Pressure Mean 100 75 Pulse Ox 100 98 Oxygen Delivery Method Room Air Room Air Room Air 09/04/22 19:00 09/04/22 20:33 Temperature 97.9 F Temperature Source Temporal Pulse Rate 78 75 Respiratory Rate 15 18 Respiratory Effort Respiratory Depth Respiratory Pattern Blood Pressure 133/76 H 126/70 H Blood Pressure Mean 95 88 Pulse Ox 99 99 Oxygen Delivery Method Room Air Room Air Weight Weight: 282 lb Body Mass Index (BMI) 40.4 Physical Exam Narrative Physical Examination: General: Awake, alert, oriented x 3 and cooperative, seated upright in the ED bed, fatigued, no acute distress. Skin: Normal color, normal turgor, no icterus, no cyanosis. HEENT: AT/NC, EOMI, PERRLA, MMM, no carotid bruits or JVD noted; however, thickened neck makes evaluation difficult. Lungs: Mildly diminished, to bases appropriate effort, no rales, ronchi or wheezing. Heart: Regular rate and rhythm; no gallop, rub audible. Abdomen: Soft, generalized discomfort but no rebound or guarding, distended appearance, mild fluid wave, distant bowel sounds, difficult to assess HSM given mild distention. Extremities: No cyanosis, no clubbing, bilateral mild ankle edema. Neurological: Patient awake, alert, oriented as noted, cognitive function intact; pupils equally reactive to light and accommodation, cranial nerves II- XII grossly normal, moving all 4 extremities, no focal deficits, strength moderately global decrease secondary to acute complaints. Psychiatric: Affect appears fatigued, no acute evidence of depressive or anxiety feelings. Results Lab / Micro Data Result Diagrams: 09/04/22 15:37 09/04/22 15:37 Labs: Laboratory Results - last 24 hr 09/04/22 15:37: WBC 9.8, RBC 4.07 L, Hgb 13.7, Hct 38.8 L, MCV 95.3 H, MCH 33.7 H, MCHC 35.3, RDW Std Deviation 48.5 H, RDW Coeff of [place] 13.8, Plt Count 202, MPV 10.8, Immature Gran % (Auto) 1.000 H, Neut % (Auto) 73.9 H, Lymph % (Auto) 6.8 L, [place] % (Auto) 14.1 H, Eos % (Auto) 3.4, Baso % (Auto) 0.8, Absolute Neuts (auto) 7.3, Absolute Lymphs (auto) 0.67 L, Nucleated RBC % 0 09/04/22 15:37: PT 16.3 H, INR 1.3, APTT 32.4 09/04/22 15:37: Sodium 132 L, Potassium 5.2 H, Chloride 105, Carbon Dioxide 19.0 L, Anion Gap 8, BUN 61 H, Creatinine 1.93 H, Estim Creat Clear Calc 42.55, Est GFR (MDRD) Af Amer 46 L, Est GFR (MDRD) Non-Af 38 L, BUN/Creatinine Ratio 31.6 H , Glucose 100, Calcium 9.1, Total Bilirubin 3.40 H, AST 63 H, ALT 32, Alkaline Phosphatase 312 H, Total Protein 6.2 L, Albumin 2.5 L, Globulin 3.7, Albumin/Globulin Ratio 0.7 L, Lipase 163 09/04/22 15:37: Ammonia 26.0 09/04/22 15:37: Lactic Acid 1.5 09/04/22 18:23: Urine Color Jennifer, Urine Clarity Clear, Urine pH 5.0, Ur Specific [place] 1.025, Urine Protein 15 H, Urine Glucose (UA) Normal, Urine Ketones 5 H, Urine Occult Blood Negative, Urine Nitrite Negative, Urine Bilirubin Negative, Urine Urobilinogen Normal, Ur Leukocyte Esterase 25 H, Urine RBC 0 SEEN, Urine WBC 0-5 SEEN, Ur Squamous Epith Cells 0-5 SEEN, Urine Bacteria RARE, Hyaline Casts 0-5 SEEN, Urine Mucus 0 SEEN Radiology Impression Abdomen CT 09/04/22 16:58 IMPRESSION: Nodular margin of the liver compatible with cirrhosis. There is a large amount of free fluid in the abdomen and pelvis compatible with ascites. There is mild splenomegaly with splenic varices. There has been no significant change from reference exam. Electronically Signed: Modesto Flores MD at 18:06 EST , Assessment & Plan Assessment/Plan (1) Cirrhosis: PLAN: Plan The patient is a 57 y/o M w/ PMHx: GERD, SOPHY on CPAP q HS, Chronic CHF, HTN, HLD, Hx EtOH abuse with Alcoholic cirrhosis, Former tobacco use who presents to the [facility] ED on 09/04/22 with history of approximately 1 month of progressively worsening fatigue, malaise and dyspnea, worse with exertion with diffuse generalized abdominal discomfort with noted history of cirrhotic liver disease with mildly recent ammonia elevations however he denies any recent confusions however given ongoing dyspnea and mild nausea prompted ED evaluation. #1. Suspect Mildly Acutely Worsened Ascites w/ Acute Decompensated Cirrhosis w/ Respiratory Insufficiency: Will admit to PCU, maintain on low Na diet, water 1500 ml restriction, lasix IV diuresis regimen w/ transition to oral regimen upon discharge, lactulose, spironolactone w/ transition upward outpatient as needed, consult radiology for diagnostic and therapeutic paracentesis in AM, consult gastroenterology for ongoing evaluation per discussion with patient and family is interested in potentially establishing with Dr. Angulo. Ammonia level requested. From discussions with patient he does report that he is in the process of being evaluated for liver transplant. #2. Reported history of chronic CHF, presumed diastolic: 04/07/2020 echocardiogram with EF 60%, normal diastole for age, no significant valvular abnormalities therefore unclear specific CHF type and suspect likely dyspnea complaint secondary to alcoholic cirrhotic disease, not on aspirin therapy however given significant liver disease will defer as lower suspicion for actual CHF history, continue spironolactone, IV Lasix transiently as noted, rifaximin, lactulose. #3. Hypertension: We will continue patient home spironolactone regimen, IV Lasix temporarily given complaints, as needed IV hydralazine. #4. Hyperlipidemia: Not on regimen, defer to outpatient. #5. History of alcohol abuse: Encouraged continued sobriety especially given alcoholic cirrhotic history. #6. Former tobacco use: Encourage continued tobacco cessation. #7. Obesity: Weight loss and lifestyle changes encouraged. #8. GERD: We will continue patient home PPI. #9. SOPHY: CPAP nightly. #10. DVT prophylaxis: SCDs, hold chemoprophylaxis for planned a.m. paracentesis. #11. CODE status: Patient does not have healthcare power of traffic law attorney nor living will in place but is interested in setting these items up. Encouraged them to discuss this with case management/social work for assistance. Discussed CODE status at length including difference between FULL code, DNR-CCA and DNR-CC status. Following discussions about the differences in these status, requested Full Code status. Advanced Care Planning Face to Face Time: 16 minutes. Charges/Coding Visit Charges Inpatient E&M: 56646 Init Hosp L3 Procedures Hospitalists Procedures: 30565 Advncd Care Plan 30 Min
[2022-09-05] VITALS (17 sets, daily range): BP systolic 96–123; BP diastolic 48–70; PULSE 67–82; RESP 16–18; TEMP 36.4–37.1; O2SAT 95–100
--- NOTE | 2022-09-05 | FLU_PTH ---
PATIENT: ORTIZ TOVAR LOC: [facility] U#:[id number] AGE/SX: 57/M ROOM: [facility] RE09/04/[address]: Dr. Pam Colon MD : 1965 BED: 1 DIS: 09/09/2022 SPEC #: [id number] RECD: 09/05/22 13:51 STATUS: TREVON RETamia #: [id number] MANGO: 09/05/22 00:[address]: Pam Colon DEPT: CYTOLOGY RECD BY: Sarita Malik ENTERED: 09/06/22 09:35 SP TYPE: Fluid OTHR DR: MD Dr. Jake Griffin MD Tissues: PARACENTESIS FLUID Procedures: Special Stain Group II Surgery Specimen Level IV Cytospin Fluid HEADER OPERATION: Ultrasound-guided right paracentesis PRE-OP DIAGNOSIS: Ascites TISSUE SUBMITTED: Paracentesis fluid for cytology DIAGNOSIS CYTOLOGY Paracentesis fluid for cytology (cytospin and cell block): Negative for malignant cells. See comment. SJ:lynda 09/07/2022 COMMENT The specimen is bloody. Clinical correlation and appropriate follow up are necessary. CYTOLOGY STUDY Slides are reviewed. CYTOLOGY GROSS Received is 70 ml of red cloudy fluid labeled with the patient's name and and designated per the requisition as paracentesis. Submitted for cytology preparation including cell block. / lynda 09/06/2022 TC:5 CPT: 02263, 13851
[2022-09-05] MEDS: Lactulose 20 GM/30 ML UDC PO ×4 (01:19→21:09)
[2022-09-05] MEDS: Carvedilol 3.125 MG TABLET 1.56 MG PO ×2 (01:21→09:54)
[2022-09-05] MEDS: Pantoprazole Sodium 40 MG Tablet PO ×3 (01:22→21:09)
[2022-09-05] MEDS: Furosemide 40 MG/4 ML Vial IV ×2 (01:22→09:55)
[2022-09-05] MEDS: rifAXIMin 550 MG Tablet PO ×3 (01:23→21:09)
[2022-09-05] MEDS: 0.9% Saline Lock 10 ML Syringe IV ×2 (01:23→09:58)
[2022-09-05 05:28] LABS: Absolute Lymphocyte Count 0.63 X10^3/uL (0.83-4.51); Absolute Neutrophil Count 6.7 X10^3/uL (2.0-7.7); Basophil# 0.09 X10^3/uL; Eosinophil# 0.32 X10^3/uL; Eosinophils% 3.5 % (0-5); Hematocrit 36.4 % (40-54); Hemoglobin 13.2 g/dL (13.0-16.5); Lymphocyte # 0.63 X10^3/ul (0.83-4.51); Lymphocyte % 6.8 % (19-41); Mean Corp Hgb Conc 36.3 g/dL (32-36); Mean Corpuscular Hgb 34.6 pg (27.0-32.0); Mean Corpuscular Volume 95.5 fL (80-94); Mean Platelet Vol. 10.3 fl (6.2-12.0); Monocyte# 1.44 X10^3/uL; Monocyte% 15.5 % (0-10); NRBC Flagged by Analyzer 0 % (0-5); Neutrophil % 72.2 % (47-70); Platelet Count 167 K/mm3 (150-450); RBC Distribution Width CV 13.9 % (11.6-14.6); RBC Distribution Width SD 48.9 fl (35.1-43.9); Red Blood Count 3.81 M/mm3 (4.6-6.2); White Blood Count 9.3 K/mm3 (4.4-11.0)
[2022-09-05 05:49] LABS: ALB/GLOB Ratio 0.6 RATIO (0.9-2.4); AST(SGOT) 51 U/L (15-37); Alanine Aminotransfer ALT/SGPT 30 U/L (16-61); Albumin, Serum 2.2 g/dL (3.2-5.0); Alkaline Phosphatase 288 U/L (45-117); Anion Gap 11 (5-15); BUN 62 mg/dL (7-18); BUN/Creat Ratio 31.6 RATIO (10-20); Calcium,Total 8.7 mg/dL (8.5-10.1); Chloride 103 mmol/L (98-107); Creatinine, Serum 1.96 mg/dL (0.70-1.30); EST Glomerular Filtration Rate 37 mL/min (>60); Est Glom Filt Rate - Afr Amer 45 mL/min (>60); Globulin 3.5 g/dL (2.2-4.2); Glucose 113 mg/dL (74-106); Potassium 5.1 mmol/L (3.5-5.1); Protein, Total 5.7 g/dL (6.4-8.2); Sodium Level 131 mmol/L (136-145)
[2022-09-05] MEDS: Spironolactone 50 MG Tablet 100 MG PO (09:53)
[2022-09-05] MEDS: Lidocaine 2% (20 ml mdv) 20 ML Vial INFILT (13:25)
[2022-09-05 13:56] LABS: Cytology, Body Fluid / CSF SEE PATHOLOGY REPORT
--- NOTE | 2022-09-05 14:05 | CASEMGMT ---
Addendum entered by Michelle Madrid 09/05/22 15:17: SHANEKA ACUNA Assessment: Face to Face with pt for initial transition planning/care coordination assessment. SHANEKA ACUNA introduced self and role at [facility], pt voices understanding and consents to assessment. Pt is A/O x4 and answers all questions appropriately at this time. Pt just back to the floor after paracentesis. at beside. Per instructor of nursing, pt had 5700cc drained. Care providers, pharmacy, and demographics verified/updated. Admitting Dx: Decompensated Cirrhosis. PCP: Bria. Specialists: ANUEL Romero. Preferred Pharmacy: [facility]. Insurance: [employer]. Prescription Benefit: yes. LW/HPOA: Pt denies having a LW/DPOA but pt is interested in completing necessary paperwork. SW advised. LNOK: Mallory Salgado, ; Cindi Salgado, Dtr. Living Arrangements: Pt lives and dtr in a one story home. The home has three steps to enter with a railing in place. Pt is I in ADLs. Transportation: Pt drives self and denies concerns with transportation. Pt's is able to assist if needed. DME/HHC/SNF: Pt has the following: cane, walker, BSC, and shower chair. However, pt is currently only utilizing the cane. Pt had [facility] when he was first diagnosed about two years ago. Pt denied any current services in the home. Pt denied any SNF stays. Pt has a working CPap. Pt's does have a pulse ox at home. Pt states no concerns with going home at time of dc. Pt states no further concerns/needs. CM to follow. Advised pt to ask CM if any further question/concerns/needs arise, voices understanding. Pt Goal: Home. Plan: Home. Pt denied wanting any HHC at this time. Pt advised he typically feels better after paracentesis procedure. Pt has utilized all of his time off at work and does not get paid when out for procedures. This is a concern of the pt and his . Pt plans to meet with Dr. Angulo today. Pt advised he may need different paperwork for FMLA. Pt is a but hasn't utilized VA benefits ever. Pt was encouraged to speak to someone from the VA if desired. Pt's advised if this is his new norm we need to reevaluate and possibly apply for disability. Original Note: Complex Primary Substance Abuse Counselor to pt's room to complete dc assessment. Pt not on floor. Will try at a later time to complete the assessment. Navigator did speak with SW. Per information reviewed in [employer], pt voiced interest in LW/HPOA information. SW advised she did speak with pt regarding this.
--- NOTE | 2022-09-05 14:22 | CHAPLAIN ---
Type of Pastoral Visit _x__ Initial Visit ___ Follow-up Visit ___ On-call Visit ___ General Patient Visit ___ Spiritual Assessment ___ Family Conference ___ Bereavement ___ Rapid Response ___ Code Blue ___ Other (describe below) Pastoral Care Referral From _x__ Patient ___ Family ___ Nurse ___ Physician ___ Heat Seal Operator ___ Business Development Assistant ___ Other (describe below) Sacrament/Intervention _x__ Active listening ___ Anointing ___ Episcopal ___ Bereavement ___ Communion _x__ Kassidy exploration ___ ___ Life review _x__ Prayer ___ Reconciliation ___ Sacrament of Sick _x__ Supportive presence ___ Wedding ___ Other (describe below) Pastoral Comments patient and spouse are in room; pt speaks of processing several times, concerning the developments of his health; pt asked about how he is processing, what are his feelings, and what resources, including spiritual ones, does he have to process; pt is open about these questions; pt states that he has not been in confucianist for a very long time but that a prayer would be welcomed; spouse is tearful following this but does not speak up or offer what concerns she has when she is asked
--- NOTE | 2022-09-05 14:26 | PN.HOSP_ITS ---
Subjective Subjective Follow-up on ascites/liver cirrhosis: Patient was seen and examined. He underwent paracentesis and 5.7L of reddish cloudy fluid were removed. He denied fever or chills. No abdominal pain. Objective Data Objective Data Vital Signs: Vital Signs Temp Pulse Resp BP Pulse Ox O2 Del Method 97.8 F 73 17 113/59 L 97 Room Air 09/05/22 13:06 09/05/22 13:06 09/05/22 13:06 09/05/22 13:06 09/05/22 13:06 09/05/22 13:06 Oxygen Delivery Method Room Air Weight: 128 kg Body Mass Index (BMI) 40.4 Intake & Output: Intake and Output for Last 24 Hours 09/03/22 09/04/22 09/05/22 23:59 23:59 23:59 Intake Total 480 / 480 Output Total 950 / 950 Balance -470 / -470 Lab / Micro Data Result Diagrams: 09/06/22 07:10 09/06/22 07:10 Labs: Laboratory Results - last 24 hr 09/04/22 15:37: WBC 9.8, RBC 4.07 L, Hgb 13.7, Hct 38.8 L, MCV 95.3 H, MCH 33.7 H, MCHC 35.3, RDW Std Deviation 48.5 H, RDW Coeff of Olvin 13.8, Plt Count 202, MPV 10.8, Immature Gran % (Auto) 1.000 H, Neut % (Auto) 73.9 H, Lymph % (Auto) 6.8 L, [place] % (Auto) 14.1 H, Eos % (Auto) 3.4, Baso % (Auto) 0.8, Absolute Neuts (auto) 7.3, Absolute Lymphs (auto) 0.67 L, Nucleated RBC % 0 09/04/22 15:37: PT 16.3 H, INR 1.3, APTT 32.4 09/04/22 15:37: Sodium 132 L, Potassium 5.2 H, Chloride 105, Carbon Dioxide 19.0 L, Anion Gap 8, BUN 61 H, Creatinine 1.93 H, Estim Creat Clear Calc 42.55, Est GFR (MDRD) Af Amer 46 L, Est GFR (MDRD) Non-Af 38 L, BUN/Creatinine Ratio 31.6 H , Glucose 100, Calcium 9.1, Total Bilirubin 3.40 H, AST 63 H, ALT 32, Alkaline Phosphatase 312 H, Total Protein 6.2 L, Albumin 2.5 L, Globulin 3.7, Albumin/Globulin Ratio 0.7 L, Lipase 163 09/04/22 15:37: Ammonia 26.0 09/04/22 15:37: Lactic Acid 1.5 09/04/22 18:23: Urine Color Jennifer, Urine Clarity Clear, Urine pH 5.0, Ur Specific Bruni 1.025, Urine Protein 15 H, Urine Glucose (UA) Normal, Urine Ketones 5 H, Urine Occult Blood Negative, Urine Nitrite Negative, Urine Bilirubin Negative, Urine Urobilinogen Normal, Ur Leukocyte Esterase 25 H, Urine RBC 0 SEEN, Urine WBC 0-5 SEEN, Ur Squamous Epith Cells 0-5 SEEN, Urine Bacteria RARE, Hyaline Casts 0-5 SEEN, Urine Mucus 0 SEEN 09/05/22 05:09: WBC 9.3, RBC 3.81 L, Hgb 13.2, Hct 36.4 L, MCV 95.5 H, MCH 34.6 H, MCHC 36.3 H, RDW Std Deviation 48.9 H, RDW Coeff of Olvin 13.9, Plt Count 167, MPV 10.3, Immature Gran % (Auto) 1.000 H, Neut % (Auto) 72.2 H, Lymph % (Auto) 6.8 L, [place] % (Auto) 15.5 H, Eos % (Auto) 3.5, Baso % (Auto) 1.0, Absolute Neuts (auto) 6.7, Absolute Lymphs (auto) 0.63 L, Nucleated RBC % 0 09/05/22 05:09: Sodium 131 L, Potassium 5.1, Chloride 103, Carbon Dioxide 17.0 L , Anion Gap 11, BUN 62 H, Creatinine 1.96 H, Estim Creat Clear Calc 41.90, Est GFR (MDRD) Af Amer 45 L, Est GFR (MDRD) Non-Af 37 L, BUN/Creatinine Ratio 31.6 H , Glucose 113 H, Calcium 8.7, Total Bilirubin 3.20 H, AST 51 H, ALT 30, Alkaline Phosphatase 288 H, Total Protein 5.7 L, Albumin 2.2 L, Globulin 3.5, Albumin/Globulin Ratio 0.6 L Micro: Microbiology 09/04/22 20:00 Nasal Secretion SARS-CoV-2 & FLU Antigen (Rapid) - Final Radiography Diagnostic Testing: Radiology Impression Abdomen CT 09/04/22 16:58 IMPRESSION: Nodular margin of the liver compatible with cirrhosis. There is a large amount of free fluid in the abdomen and pelvis compatible with ascites. There is mild splenomegaly with splenic varices. There has been no significant change from reference exam. Electronically Signed: Modesto Flores MD at 18:06 EST , Chest X-Ray 09/04/22 20:00 IMPRESSION: No radiographic evidence of acute cardiopulmonary disease. Electronically Signed: Modesto Flores MD at 20:48 EST , Physical Exam Narrative Physical exam: General: Alert, Oriented x3, Cooperative, morbidly obese, not on oxygen HEENT: Atraumatic Oral: Moist Mucosa Neck: Supple Lungs: Diminished to auscultation Cardiovascular: HS I+II, regular, no murmurs Abdomen:Distended, obese anterior abdominal wall Bowel Sounds Present, Soft, Non Tender Extremities:Bilateral leg edema trace Skin: No rashes, No breakdown Neurological: Grossly intact Psych/Mental Status: Appropriate Assessment & Plan Assessment/Plan (1) Cirrhosis: PLAN: Plan 1. Worsening ascites, patient with liver cirrhosis Status post paracentesis on 09/05/2022; 5.7 L of reddish cloudy fluid removed We will give 50 g of IV albumin x1 Continue with lactulose, rifaximin GI consulted, follow-up on cultures 2. Relative hypotension, will discontinue spironolactone for now 3. History of diastolic CHF, not in acute decompensation, EF of 60% on previous 2D echo in 2019 4. Obesity, BMI 38.7, lifestyle modification recommended 5. GERD, continue PPI 6. SOPHY on CPAP QHS 7. DVT PPx- SCDs Charges/Coding Visit Charges Inpatient E&M: 92404 Subs Hosp L3
[2022-09-05 14:37] LABS: Body Fluid Mononuclear WBC # 0.295 10^3/uL; Body Fluid Mononuclear WBC % 89.4 %; Body Fluid Polynuclear WBC # 0.035 10^3/uL; Body Fluid Polynuclear WBC % 10.6 %; Body Fluid Total Cells Counted 0.402 10^3/ul; Red Cell Count/Body Fluid 0.032 10^6/ul
[2022-09-05 15:04] LABS: LDH,Body Fluid 26 Units/l (Not Establ.); Protein, Body Fluid 0.9 g/dL (Not Establ.)
[2022-09-05 15:41] LABS: Lymphocytes 49 %; Macrophages 7 %; Monocytes 16 %; Neutrophil (Segs) 18 %
[2022-09-05 15:42] LABS: Mesothelial Cells 10 %
[2022-09-05 15:43] LABS: Auto B Fluid Analyzer BKGD Ct COUNTS W/IN LIMITS (W/IN LIMITS)
[2022-09-05 15:44] LABS: Appearance/Body Fluid CLOUDY; Color/Body Fluid RED; Source- Body Fluid PERITONEAL FLUID
[2022-09-05 15:47] LABS: Body Fluid QC Type(s) BF1Q
[2022-09-05] MEDS: Furosemide 40 MG Tablet PO (17:11)
[2022-09-05] MEDS: Albumin Human 25% (100 mL) 25 GM/100 ML BAG IV ×2 (17:51→19:37)
--- NOTE | 2022-09-05 22:47 | US_ITS ---
PROCEDURE: Ultrasound guided paracentesis. DATE OF EXAMINATION: 09/05/2022. INDICATION: Male, 57 years old. Ascites. PHYSICIAN: Tutu Tong M.D. TECHNIQUE: The risks, benefits, and alternatives to the procedure were explained to the patient. The specific risks of bleeding, infection, and damage to bowel were detailed and accepted. Witnessed informed consent was obtained. The abdomen was ultrasonographically surveyed. An appropriate pocket of fluid was identified at the right lower quadrant. The skin were cleaned and prepped in the usual sterile fashion. Using ultrasound guidance, the peritoneal cavity was accessed with a 5-Bhutanese paracentesis needle/catheter system. The trocar was removed. A total of 5700 ml of blood-tinged fluid were removed from the peritoneal cavity. A 100 mL sample was sent to the laboratory. The catheter was removed and a sterile dressing was applied. The procedure was well tolerated. US/Paracentesis with US IMPRESSION: Ultrasound guided paracentesis. Electronically Signed: Tutu Tong MD at 15:05 EST ,
[2022-09-06] VITALS (8 sets, daily range): BP systolic 94–124; BP diastolic 57–64; PULSE 65–92; RESP 16–18; TEMP 36.3–36.8; O2SAT 98–100
[2022-09-06] MEDS: Lactulose 20 GM/30 ML UDC PO ×3 (05:48→20:51)
[2022-09-06 07:22] LABS: Absolute Lymphocyte Count 0.64 X10^3/uL (0.83-4.51); Absolute Neutrophil Count 5.4 X10^3/uL (2.0-7.7); Basophil# 0.06 X10^3/uL; Basophil% 0.8 % (0-1); Eosinophil# 0.26 X10^3/uL; Eosinophils% 3.4 % (0-5); Hematocrit 35.9 % (40-54); Hemoglobin 12.5 g/dL (13.0-16.5); Lymphocyte # 0.64 X10^3/ul (0.83-4.51); Lymphocyte % 8.4 % (19-41); Mean Corp Hgb Conc 34.8 g/dL (32-36); Mean Corpuscular Hgb 33.6 pg (27.0-32.0); Mean Corpuscular Volume 96.5 fL (80-94); Mean Platelet Vol. 10.2 fl (6.2-12.0); Monocyte# 1.16 X10^3/uL; Monocyte% 15.3 % (0-10); NRBC Flagged by Analyzer 0 % (0-5); Neutrophil # 5.42 X10^3/uL (2.7-7.7); Neutrophil % 71.3 % (47-70); Platelet Count 150 K/mm3 (150-450); RBC Distribution Width CV 13.9 % (11.6-14.6); RBC Distribution Width SD 48.9 fl (35.1-43.9); Red Blood Count 3.72 M/mm3 (4.6-6.2); White Blood Count 7.6 K/mm3 (4.4-11.0)
[2022-09-06 07:46] LABS: AST(SGOT) 48 U/L (15-37); Alanine Aminotransfer ALT/SGPT 30 U/L (16-61); Albumin, Serum 2.9 g/dL (3.2-5.0); Alkaline Phosphatase 268 U/L (45-117); Anion Gap 9 (5-15); BUN 61 mg/dL (7-18); BUN/Creat Ratio 29.6 RATIO (10-20); Calcium,Total 9.2 mg/dL (8.5-10.1); Chloride 104 mmol/L (98-107); Creatinine, Serum 2.06 mg/dL (0.70-1.30); EST Glomerular Filtration Rate 35 mL/min (>60); Est Glom Filt Rate - Afr Amer 43 mL/min (>60); Estimated Creatinine Clearance 39.87 ml/min; Glucose 114 mg/dL (74-106); Potassium 4.6 mmol/L (3.5-5.1); Protein, Total 5.9 g/dL (6.4-8.2); Sodium Level 133 mmol/L (136-145)
[2022-09-06] MEDS: rifAXIMin 550 MG Tablet PO ×2 (08:39→20:50)
[2022-09-06] MEDS: Spironolactone 50 MG Tablet 100 MG PO (08:40)
[2022-09-06] MEDS: Furosemide 40 MG Tablet PO ×2 (08:40→17:31)
[2022-09-06] MEDS: Pantoprazole Sodium 40 MG Tablet PO ×2 (08:40→20:54)
[2022-09-06] MEDS: Ensure Plus High Protein 120 ML LIQUID PO ×3 (08:45→17:34)
--- NOTE | 2022-09-06 13:35 | CASEMGMT ---
Complex Mechanical Applications Engineer to pt's room. Pt in bed. at bedside. Pt's advised pt met Dr. Angulo. Pt's said she learned so much from Dr. Angulo in regards to the pt's health conditions. Pt and pt's said they had a good experience and like Dr. Angulo. Social Security Disability and VA benefits information provided by navigator.
--- NOTE | 2022-09-06 13:38 | CASEMGMT ---
SW completed Healthcare Power of Shank Scourer (HCPOA) and Healthcare Living Will (HCLW) with patient per his request. SW made copies and gave them to patient along with originals. SW also placed a copy of each on patient's chart. Tanvi ALEXANDER
--- NOTE | 2022-09-06 14:21 | ECHOD_ITS ---
Reason For Study: DYSPNEA Left Ventricle Normal LV size. The estimated ejection fraction is 70 %. Normal diastology for age. No regional wall motion abnormalities noted. Right Ventricle Normal RV size. Normal systolic function. Atria Normal left atrium. Normal right atrium. No doppler evidence for ASD. Mitral Valve There is no mitral valve stenosis. No mitral valve insufficiency. Tricuspid Valve There is no tricuspid stenosis. Trivial tricuspid valve insufficiency. Unable to estimate RV systolic pressure due to insufficient tricuspid regurgitant envelope. Aortic Valve Trisinus/trileaflet aortic valve. There is no aortic stenosis. No aortic valve insufficiency. Pulmonic Valve There is no pulmonic valvular stenosis. No pulmonic valve insufficiency. Great Vessels Normal aortic root. Pericardium/Pleural No pericardial effusion. MMode/2D Measurements & Calculations LVIDd: 5.1 cm IVSd: 1.4 cm Ao root diam: 3.2 cm LVIDs: 2.9 cm LVPWd: 1.4 cm FS: 44.1 % LAV(MOD-bp): 69.9 ml LVAd ap4: 32.4 cm2 SV(MOD-sp4): 55.4 ml LAV(MOD-bp) Indexed: 29.5 ml/m2 LVLd ap4: 9.5 cm LAV(MOD-sp2): 74.8 ml EDV(MOD-sp4): 90.1 ml LAV(MOD-sp4): 64.0 ml EDV(sp4-el): 93.9 ml LVAs ap4: 17.2 cm2 LVLs ap4: 8.0 cm ESV(MOD-sp4): 34.7 ml ESV(sp4-el): 31.5 ml EF(MOD-sp4): 61.5 % EF(sp4-el): 66.5 % SV(sp4-el): 62.4 ml LA dimension(2D): 3.7 cm LA A4 area: 21.0 cm2 RA A4 area: 13.8 cm2 Time Measurements MV dec time: 0.29 sec Doppler Measurements & Calculations MV E max hammad: 57.9 cm/sec Lat Peak E' Hammad: 16.6 cm/sec Med Peak E' Hammad: 13.5 cm/sec MV A max hammad: 67.0 cm/sec E/E' lat: 3.5 E/E' med: 4.3 MV E/A: 0.86 MV V2 max: 82.2 cm/sec Ao V2 max: 151.2 cm/sec MV max P.7 mmHg MV dec slope: 199.7 cm/sec2 Ao max P.2 mmHg MV V2 mean: 61.7 cm/sec Ao V2 mean: 113.5 cm/sec MV mean P.6 mmHg Ao mean P.7 mmHg MV V2 VTI: 25.9 cm Ao V2 VTI: 31.6 cm LV V1 max: 146.7 cm/sec PA V2 max: 113.5 cm/sec LV V1 max P.6 mmHg PA V2 mean: 83.1 cm/sec LV V1 mean P.6 mmHg LV V1 mean: 84.2 cm/sec LV V1 VTI: 32.4 cm ECHO/Echo Complete Interpretation Summary The estimated ejection fraction is 70 %. No significant valvular abnormalities Ordering Physician: Pam Colon Performed By: Jessica Adler RCS
[2022-09-06] MEDS: Midodrine HCl 5 MG Tablet 10 MG PO ×2 (14:32→17:31)
[2022-09-06] MEDS: Polyethylene Glycol 3350 17 GM PACKET PO ×2 (14:44→20:52)
[2022-09-06 15:38] LABS: Pathologist Comment/Body Fluid Reviewed
--- NOTE | 2022-09-06 17:24 | CON.PCM_ITS ---
Assessment & Plan Assessment/Plan (1) Painless jaundice: PLAN: Painless jaundice secondary to decompensated liver disease. At this time I do not know why his meld is getting worse. He has been compliant with all his medicines as per him and his . He does not drink any alcohol. The only new medicine that he is did was a medicine for narcolepsy. There is a possibility that he had drug-induced liver injury and it is taking a long time in order for it to improve his cognition and his liver function test. I will start him on M ucomyst to replete some of his glutathione in the setting of chronic liver disease. (2) Cirrhosis: PLAN: Child Jauregui class B with a meld of 24. His CT scan of the abdomen pelvis did show varices in the esophagus and throughout the abdomen. He was on beta- mary kay therapy but he did not tolerate it. I will put him on midodrine 10 mg p.o. 3 times daily to provide some vasoconstriction to those intra-abdominal varices. (3) Ascites: PLAN: his overall condition improved and he is Ceftriaxone. He will need to be discharged on ciprofloxacin 750mg once a week for SBP prophylaxis. He has an outpatient hepatology appointment for Liver transplant evaluation. (4) Dyspnea on exertion: PLAN: His shortness of breath has resolved status post large-volume paracentesis. (5) Renal failure: PLAN: Differential diagnosis for his renal failure is type II hepatorenal syndrome which would go with his worsening liver disease. I will put him on midodrine and octreotide tonight to see if he has improvement in the 24 hours of his kidney function and liver function. HPI Consult Data Date of Consult: 09/06/22 HPI Narrative Reason for Consultation: Cirrhosis HPI Narrative: ORTIZ TOVAR, is a 57 M who [id number] y/o M wGERD, SOPHY on CPAP q HS, Chronic CHF, HTN, HLD, Hx EtOH abuse with Alcoholic cirrhosis,. He also former tobacco use who presents to the [facility] ED on 09/04/22 with history of approximately 1 month of progressively worsening fatigue, malaise and dyspnea. His shortness of breath was worse with exertion with diffuse generalized abdominal discomfort with noted history of cirrhotic liver disease with mildly recent ammonia elevations. However, he denies any recent confusions however given ongoing dyspnea and mild nausea prompted ED evaluation.? Labs were significant for leukocytosis, transaminitis, and coagulopathy. Imaging showed liver cirrhosis with ascites and without pleural effusion.??The patient reported that he had been drinking beer in the past that contributed to developing cirrhosis. and. His physical exam was significant for a temp of 37.9?C, sinus tachycardia at 115 bpm, and hypotension at 95/65 mm Hg. He had scleral icterus, diminished breath sounds and rhonchi in the left lower lobe, mild abdominal distension, trace peripheral edema, and spider angiomata. Laboratory evaluation was notable for anemia with hemoglobin 12.3 g/dL and hematocrit 36.4%, thrombocytopenia 98,000/mm3, leukocytosis \12,000/mm3, total bilirubin 3.8 mg/dL, ALT 141 U/L, AST 67 U/L, alkaline phosphatase 155 U/L, PT 26.9 s, and INR 1.4. His meld was calculated at a 24 . Further evaluation revealed a negative viral hepatitis panel, autoimmune panel, CMV, EBV, all pendi ng acetaminophen and salicylate levels, and ethanol were not drawn. Initial infectious work-up with blood and urine cultures was negative. Chest radiography was negative. Abdominal CT scan showed a cirrhotic liver with patent hepatic vessels and moderate ascites. He underwent large-volume paracentesis. He received albumin after the procedure. His who is an SALES DEVELOPMENT REPRESENTATIVE said that his outpatient farmworker field crop had decreased his Lasix. He still remains on Aldactone therapy. Currently he is answering questions appropriately. But does appear to be sluggish. PFSH Medical History Alcoholic cirrhosis Congestive heart failure CPAP (continuous positive airway pressure) dependence Former smoker GERD (gastroesophageal reflux disease) GI bleed History of ETOH abuse HLD (hyperlipidemia) HTN (hypertension) Narcolepsy Obstructive sleep apnea Past history of chewing tobacco use Home Medications furosemide 40 mg tablet 40 mg PO MOWEFR edema 08/02/21 [History Last Taken Unknown] lactulose 10 gram/15 mL oral solution 20 g PO TID cirrhosis of the liver 08/02/21 [History Last Taken Unknown] pantoprazole 40 mg tablet,delayed release 40 mg PO BID gerd 08/02/21 [History Last Taken Unknown] rifaximin 550 mg tablet (Xifaxan) 550 mg PO BID encephalopathy 08/02/21 [History Last Taken Unknown] spironolactone 100 mg tablet 100 mg PO DAILY edema 08/02/21 [History Last Taken Unknown] carvedilol 3.125 mg tablet 1.56 mg PO BID 09/04/22 [History Last Taken Unknown] modafinil 100 mg tablet 100 mg PO 0900 narcolepsy 09/04/22 [History Last Taken U nknown] modafinil 100 mg tablet 100 mg PO 1300 narcolepsy 09/04/22 [History Last Taken Unknown] modafinil 200 mg tablet 200 mg PO 0600 narcolepsy 09/04/22 [History Last Taken Unknown] Allergy/AdvReac Type Severity Reaction Status Date / Time shellfish derived Allergy Anaphylaxis Verified 09/04/22 15:23 Family History (Updated 09/04/22 @ 22:[address] Cici Forbes MD) Mother Alzheimer disease Father Heart disease Diabetes Surgical History (Updated 09/04/22 @ 22:[address] Cici Forbes MD) H/O partial resection of colon Social History (Updated 09/04/22 @ 22:[address] Cici Forbes MD) household members: spouse Smoking Status: Never smoker Smokeless tobacco user: chewing tobacco how long ago did patient quit smoking: Former chew tobacco, quit 2.5 years prior, chewed 1 can/day since . alcohol intake: former details: Quit 2.5 years prior with EtOH abuse history. substance use type: does not use ROS ROS Narrative Admission Review of Systems: CONSTITUTIONAL: No weight loss, fever, chills, + weakness or fatigue. HEENT: Eyes: No visual loss, blurred vision, double vision or yellow sclerae. Ears, Nose, Throat: No hearing loss, sneezing, congestion, runny nose or sore throat. SKIN: No rash or itching, lesions, wounds. CARDIOVASCULAR: No chest pain, chest pressure or chest discomfort, palpitations, edema, orthopnea, syncopal events. RESPIRATORY: + shortness of breath, No cough or sputum, wheezing, hemoptysis. GASTROINTESTINAL: + anorexia, nausea, abdominal distention, abdominal discomfort. No vomiting, melena, BRBPR. GENITOURINARY: No dysuria, frequency, urgency or retention. NEUROLOGICAL: No headache, dizziness, syncope, paralysis, ataxia, numbness or tingling in the extremities, focal weakness, change in bowel or bladder control, seizure. MUSCULOSKELETAL: + muscle, back pain, joint pain or stiffness. HEMATOLOGIC: No anemia, bleeding or bruising. LYMPHATICS: No enlarged nodes. No history of splenectomy. PSYCHIATRIC: No history of depression or anxiety. ENDOCRINOLOGIC: No reports of sweating, cold or heat intolerance. No polyuria or polydipsia. ALLERGIES: No history of asthma, hives, eczema or rhinitis. Physical Exam Narrative Physical exam: General: Alert, Oriented x3, Cooperative, morbidly obese, not on oxygen HEENT: Atraumatic Oral: Moist Mucosa Neck: Supple Lungs: Diminished to auscultation Cardiovascular: HS I+II, regular, no murmurs Abdomen:Distended, obese anterior abdominal wall Bowel Sounds Present, Soft, Non Tender Extremities:Bilateral leg edema trace Skin: No rashes, No breakdown Neurological: Grossly intact Psych/Mental Status: Appropriate Lab / Micro Data Result Diagrams: 09/06/22 07:10 09/06/22 07:10 Labs: Laboratory Results - last 24 hr 09/05/22 13:44: Fl Pathologist Comment Reviewed 09/06/22 07:10: WBC 7.6, RBC 3.72 L, Hgb 12.5 L, Hct 35.9 L, MCV 96.5 H, MCH 33.6 H, MCHC 34.8, RDW Std Deviation 48.9 H, RDW Coeff of Olvin 13.9, Plt Count 150, MPV 10.2, Immature Gran % (Auto) 0.800, Neut % (Auto) 71.3 H, Lymph % (Auto) 8.4 L, [place] % (Auto) 15.3 H, Eos % (Auto) 3.4, Baso % (Auto) 0.8, Absolute Neuts (auto) 5.4, Absolute Lymphs (auto) 0.64 L, Nucleated RBC % 0 09/06/22 07:10: Sodium 133 L, Potassium 4.6, Chloride 104, Carbon Dioxide 20.0 L , Anion Gap 9, BUN 61 H, Creatinine 2.06 H, Estim Creat Clear Calc 39.87, Est GFR (MDRD) Af Amer 43 L, Est GFR (MDRD) Non-Af 35 L, BUN/Creatinine Ratio 29.6 H , Glucose 114 H, Calcium 9.2, Total Bilirubin 3.90 H, AST 48 H, ALT 30, Alkaline Phosphatase 268 H, Total Protein 5.9 L, Albumin 2.9 L, Globulin 3.0, Albumin/Globulin Ratio 1.0 09/06/22 07:10: Ammonia 68.0 H Micro: Microbiology 09/05/22 13:44 Fluid - Ascites Gram Stain - Final 09/05/22 13:44 Fluid - Ascites Body Fluid Culture - Preliminary No growth-Final to follow Charges/Coding Visit Charges Inpatient E&M: 94109 Init Hosp L3
--- NOTE | 2022-09-06 17:27 | PCM.PN.HOSP ---
Objective Data Objective Data Vital Signs: Vital Signs Temp Pulse Resp BP Pulse Ox O2 Del Method 97.3 F L 75 16 98/57 L 100 Room Air 09/06/22 14:00 09/06/22 14:00 09/06/22 14:00 09/06/22 14:00 09/06/22 14:00 09/06/22 14:00 Oxygen Delivery Method [6] Room Air Oxygen Delivery Method [5] Room Air Oxygen Delivery Method [4] Room Air Oxygen Delivery Method [3] Room Air Oxygen Delivery Method [2] Room Air Oxygen Delivery Method [1 ( Room Air Initial Baseline)] Oxygen Delivery Method Room Air Weight: 122.3 kg Body Mass Index (BMI) 40.4 Intake & Output: Intake and Output for Last 24 Hours 09/04/22 09/05/22 09/06/22 23:59 23:59 23:59 Intake Total 1040 / 1040 50 / 50 Output Total 7350 / 7750 800 / 800 Balance -6310 / -6710 -750 / -750 Lab / Micro Data Result Diagrams: 09/06/22 07:10 09/06/22 07:10 Labs: Laboratory Results - last 24 hr 09/05/22 13:44: Fl Pathologist Comment Reviewed 09/06/22 07:10: WBC 7.6, RBC 3.72 L, Hgb 12.5 L, Hct 35.9 L, MCV 96.5 H, MCH 33.6 H, MCHC 34.8, RDW Std Deviation 48.9 H, RDW Coeff of Olvin 13.9, Plt Count 150, MPV 10.2, Immature Gran % (Auto) 0.800, Neut % (Auto) 71.3 H, Lymph % (Auto) 8.4 L, [place] % (Auto) 15.3 H, Eos % (Auto) 3.4, Baso % (Auto) 0.8, Absolute Neuts (auto) 5.4, Absolute Lymphs (auto) 0.64 L, Nucleated RBC % 0 09/06/22 07:10: Sodium 133 L, Potassium 4.6, Chloride 104, Carbon Dioxide 20.0 L, Anion Gap 9, BUN 61 H, Creatinine 2.06 H, Estim Creat Clear Calc 39.87, Est GFR (MDRD) Af Amer 43 L, Est GFR (MDRD) Non-Af 35 L, BUN/Creatinine Ratio 29.6 H, Glucose 114 H, Calcium 9.2, Total Bilirubin 3.90 H, AST 48 H, ALT 30, Alkaline Phosphatase 268 H, Total Protein 5.9 L, Albumin 2.9 L, Globulin 3.0, Albumin/Globulin Ratio 1.0 09/06/22 07:10: Ammonia 68.0 H Micro: Microbiology 09/05/22 13:44 Fluid - Ascites Gram Stain - Final 09/05/22 13:44 Fluid - Ascites Body Fluid Culture - Preliminary No growth-Final to follow 09/04/22 20:00 Nasal Secretion SARS-CoV-2 & FLU Antigen (Rapid) - Final
[2022-09-06 19:18] LABS: CPK Total, Creatine Kinase 21 U/L (39-308); Ferritin 390 ng/mL (26-388); LDH 199 U/L (87-241); Uric Acid 11.7 mg/dL (3.5-7.2)
--- NOTE | 2022-09-06 20:45 | NURSING ---
PT PHONED TO DISCUSS NEW MEDICATIONS. ALL QUESTIONS FROM BOTH OF THEM WERE ASKED AND ANSWERED. WRITTEN MATERIALS PROVIDED TO PT.
[2022-09-06] MEDS: Acetylcysteine (Mucomyst Oral) 20% SOLN 600 MG PO (20:51)
[2022-09-06] MEDS: Octreotide 0.1 MG/ML ML SC (20:52)
[2022-09-06] MEDS: Albumin Human 25% (100 mL) 25 GM/100 ML BAG IV (21:09)
[2022-09-07] VITALS (9 sets, daily range): BP systolic 115–140; BP diastolic 55–69; PULSE 60–77; RESP 17–18; TEMP 36.4–36.7; O2SAT 96–99
--- NOTE | 2022-09-07 05:34 | PN.HOSP_ITS ---
Subjective Subjective Late entry note: Patient was seen on 09/06/11 at 8:30am Follow-up on ascites/acute hepatic encephalopathy: Patient was seen and examined. He denies any abdominal pain. He appears slightly lethargic. Ammonia level is 68. Objective Data Objective Data Vital Signs: Vital Signs Temp Pulse Resp BP Pulse Ox O2 Del Method 98.2 F 70 18 124/62 H 99 Room Air 09/06/22 21:00 09/06/22 21:00 09/06/22 21:00 09/06/22 21:00 09/06/22 21:00 09/06/22 21:00 Oxygen Delivery Method [6] Room Air Oxygen Delivery Method [5] Room Air Oxygen Delivery Method [4] Room Air Oxygen Delivery Method [3] Room Air Oxygen Delivery Method [2] Room Air Oxygen Delivery Method [1 ( Room Air Initial Baseline)] Oxygen Delivery Method Room Air Weight: 122.3 kg Body Mass Index (BMI) 40.4 Intake & Output: Intake and Output for Last 24 Hours 09/05/22 09/06/22 09/07/22 23:59 23:59 23:59 Intake Total 1040 / 1040 550 / 550 100 / 100 Output Total 7350 / 7750 1250 / 1250 Balance -6310 / -6710 -700 / -700 100 / 100 Lab / Micro Data Result Diagrams: 09/06/22 07:10 09/06/22 07:10 Labs: Laboratory Results - last 24 hr 09/05/22 13:44: Fl Pathologist Comment Reviewed 09/06/22 07:10: WBC 7.6, RBC 3.72 L, Hgb 12.5 L, Hct 35.9 L, MCV 96.5 H, MCH 33.6 H, MCHC 34.8, RDW Std Deviation 48.9 H, RDW Coeff of Olvin 13.9, Plt Count 150, MPV 10.2, Immature Gran % (Auto) 0.800, Neut % (Auto) 71.3 H, Lymph % (Auto) 8.4 L, [place] % (Auto) 15.3 H, Eos % (Auto) 3.4, Baso % (Auto) 0.8, Absolute Neuts (auto) 5.4, Absolute Lymphs (auto) 0.64 L, Nucleated RBC % 0 09/06/22 07:10: Sodium 133 L, Potassium 4.6, Chloride 104, Carbon Dioxide 20.0 L , Anion Gap 9, BUN 61 H, Creatinine 2.06 H, Estim Creat Clear Calc 39.87, Est GFR (MDRD) Af Amer 43 L, Est GFR (MDRD) Non-Af 35 L, BUN/Creatinine Ratio 29.6 H , Glucose 114 H, Calcium 9.2, Total Bilirubin 3.90 H, AST 48 H, ALT 30, Alkaline Phosphatase 268 H, Total Protein 5.9 L, Albumin 2.9 L, Globulin 3.0, Albumin/Globulin Ratio 1.0 09/06/22 07:10: Ammonia 68.0 H 09/06/22 07:10: Uric Acid 11.7 H, Ferritin 390 H, Lactate Dehydrogenase 199, Total Creatine Kinase 21 L Micro: Microbiology 09/05/22 13:44 Fluid - Ascites Gram Stain - Final 09/05/22 13:44 Fluid - Ascites Body Fluid Culture - Preliminary No growth-Final to follow 09/04/22 20:00 Nasal Secretion SARS-CoV-2 & FLU Antigen (Rapid) - Final Physical Exam Narrative Physical exam: General: Alert, Oriented x3, Cooperative, morbidly obese, not on oxygen HEENT: Atraumatic Oral: Moist Mucosa Neck: Supple Lungs: Diminished to auscultation Cardiovascular: HS I+II, regular, no murmurs Abdomen:Distended, obese anterior abdominal wall Bowel Sounds Present, Soft, Non Tender Extremities:Bilateral leg edema trace Skin: No rashes, No breakdown Neurological: Grossly intact Psych/Mental Status: Appropriate Assessment & Plan Assessment/Plan (1) Cirrhosis: PLAN: Plan 1. Worsening ascites, patient with liver cirrhosis Status post paracentesis on 09/05/2022; 5.7 L of reddish cloudy fluid removed Fluid analysis was cloudy with WBC count of 330, started on IV ceftriaxone Continue with lactulose, rifaximin, miralax added GI consulted, follow-up on cultures 2. Relative hypotension, slightly improved, continue to monitor Spironolactone discontinued 3. History of diastolic CHF, not in acute decompensation, EF of 60% on previous 2D echo in 2019, will obtain 2D-ECHO 4. Obesity, BMI 38.7, lifestyle modification recommended 5. GERD, continue PPI 6. SOPHY on CPAP QHS 7. DVT PPx- SCDs Charges/Coding Visit Charges Inpatient E&M: 26554 Subs Hosp L3
[2022-09-07] MEDS: Lactulose 20 GM/30 ML UDC PO (05:57)
[2022-09-07] MEDS: Octreotide 0.1 MG/ML ML SC ×3 (06:05→21:59)
[2022-09-07 06:19] LABS: Absolute Lymphocyte Count 0.62 X10^3/uL (0.83-4.51); Absolute Neutrophil Count 6.8 X10^3/uL (2.0-7.7); Basophil# 0.09 X10^3/uL; Eosinophil# 0.38 X10^3/uL; Eosinophils% 4.1 % (0-5); Hematocrit 35.3 % (40-54); Hemoglobin 12.6 g/dL (13.0-16.5); Lymphocyte # 0.62 X10^3/ul (0.83-4.51); Lymphocyte % 6.7 % (19-41); Mean Corp Hgb Conc 35.7 g/dL (32-36); Mean Corpuscular Hgb 34.3 pg (27.0-32.0); Mean Corpuscular Volume 96.2 fL (80-94); Mean Platelet Vol. 10.1 fl (6.2-12.0); Monocyte# 1.33 X10^3/uL; Monocyte% 14.4 % (0-10); NRBC Flagged by Analyzer 0 % (0-5); Neutrophil # 6.77 X10^3/uL (2.7-7.7); Neutrophil % 73.3 % (47-70); Platelet Count 135 K/mm3 (150-450); RBC Distribution Width CV 13.9 % (11.6-14.6); RBC Distribution Width SD 49.4 fl (35.1-43.9); Red Blood Count 3.67 M/mm3 (4.6-6.2); White Blood Count 9.2 K/mm3 (4.4-11.0)
[2022-09-07 06:55] LABS: ALB/GLOB Ratio 0.9 RATIO (0.9-2.4); AST(SGOT) 53 U/L (15-37); Alanine Aminotransfer ALT/SGPT 31 U/L (16-61); Albumin, Serum 2.9 g/dL (3.2-5.0); Alkaline Phosphatase 288 U/L (45-117); Anion Gap 10 (5-15); BUN 63 mg/dL (7-18); BUN/Creat Ratio 29.7 RATIO (10-20); Calcium,Total 9.1 mg/dL (8.5-10.1); Chloride 103 mmol/L (98-107); Creatinine, Serum 2.12 mg/dL (0.70-1.30); EST Glomerular Filtration Rate 34 mL/min (>60); Est Glom Filt Rate - Afr Amer 41 mL/min (>60); Estimated Creatinine Clearance 38.74 ml/min; Globulin 3.1 g/dL (2.2-4.2); Glucose 112 mg/dL (74-106); Potassium 5.2 mmol/L (3.5-5.1); Sodium Level 133 mmol/L (136-145)
--- NOTE | 2022-09-07 09:06 | PN.HOSP_ITS ---
Subjective Subjective Follow-up on ascites/acute hepatic encephalopathy: Patient was seen and examined. He is slightly sleepy on conversation. His ammonia level is elevated to 138. He denies any abdominal pain or fever. Objective Data Objective Data Vital Signs: Vital Signs Temp Pulse Resp BP Pulse Ox O2 Del Method 97.7 F L 69 17 115/59 L 99 Room Air 09/07/22 08:57 09/07/22 08:57 09/07/22 08:57 09/07/22 08:57 09/07/22 08:57 09/07/22 08:57 Oxygen Delivery Method [6] Room Air Oxygen Delivery Method [5] Room Air Oxygen Delivery Method [4] Room Air Oxygen Delivery Method [3] Room Air Oxygen Delivery Method [2] Room Air Oxygen Delivery Method [1 ( Room Air Initial Baseline)] Oxygen Delivery Method Room Air Weight: 123 kg Body Mass Index (BMI) 40.4 Intake & Output: Intake and Output for Last 24 Hours 09/05/22 09/06/22 09/07/22 23:59 23:59 23:59 Intake Total 1040 / 1040 550 / 550 700 / 700 Output Total 7350 / 7750 1250 / 1250 450 / 450 Balance -6310 / -6710 -700 / -700 250 / 250 Lab / Micro Data Result Diagrams: 09/07/22 06:05 09/07/22 06:05 Labs: Laboratory Results - last 24 hr 09/05/22 13:44: Fl Pathologist Comment Reviewed 09/06/22 07:10: Uric Acid 11.7 H, Ferritin 390 H, Lactate Dehydrogenase 199, Total Creatine Kinase 21 L 09/07/22 06:05: WBC 9.2, RBC 3.67 L, Hgb 12.6 L, Hct 35.3 L, MCV 96.2 H, MCH 34. 3 H, MCHC 35.7, RDW Std Deviation 49.4 H, RDW Coeff of Olvin 13.9, Plt Count 135 L , MPV 10.1, Immature Gran % (Auto) 0.500, Neut % (Auto) 73.3 H, Lymph % (Auto) 6.7 L, [place] % (Auto) 14.4 H, Eos % (Auto) 4.1, Baso % (Auto) 1.0, Absolute Neuts (auto) 6.8, Absolute Lymphs (auto) 0.62 L, Nucleated RBC % 0 09/07/22 06:05: Sodium 133 L, Potassium 5.2 H, Chloride 103, Carbon Dioxide 20.0 L, Anion Gap 10, BUN 63 H, Creatinine 2.12 H, Estim Creat Clear Calc 38.74, Est GFR (MDRD) Af Amer 41 L, Est GFR (MDRD) Non-Af 34 L, BUN/Creatinine Ratio 29.7 H , Glucose 112 H, Calcium 9.1, Total Bilirubin 3.10 H, AST 53 H, ALT 31, Alkaline Phosphatase 288 H, Total Protein 6.0 L, Albumin 2.9 L, Globulin 3.1, Albumin/Globulin Ratio 0.9 09/07/22 07:54: Ammonia 138.0 H Micro: Microbiology 09/05/22 13:44 Fluid - Ascites Gram Stain - Final 09/05/22 13:44 Fluid - Ascites Body Fluid Culture - Preliminary No growth-Final to follow 09/05/22 13:44 Fluid - Ascites Anaerobic Culture - Preliminary No growth in 48 hours. 09/04/22 20:00 Nasal Secretion SARS-CoV-2 & FLU Antigen (Rapid) - Final Physical Exam Narrative Physical exam: General: Alert, Oriented x3, slightly lethargic cooperative, morbidly obese, not on oxygen HEENT: Atraumatic Oral: Moist Mucosa Neck: Supple Lungs: Diminished to auscultation Cardiovascular: HS I+II, regular, no murmurs Abdomen:Obese anterior abdominal wall Bowel Sounds Present, Soft, Non Tender Extremities:Bilateral leg edema trace Skin: No rashes, No breakdown Neurological: Grossly intact Psych/Mental Status: Appropriate Assessment & Plan Assessment/Plan (1) Cirrhosis: PLAN: Plan 1. Liver cirrhosis, decompensated with ascites and hepatic encephalopathy Status post paracentesis on 09/05/2022; 5.7 L of reddish cloudy fluid removed Fluid analysis was cloudy with WBC count of 330, ascitic fluid cultures are negative Ammonia level is increased to 138 Continue with increased dose of lactulose, rifaximin, miralax added, ceftriaxone GI consulted 2. Increase in creatinine to 2.2 from 1.93, patient with underlying CKD stage II Ib Spironolactone, Lasix discontinued Trend lab 3. Relative hypotension, slightly improved, continue to monitor off blood pressure medications 4. History of diastolic CHF, not in acute decompensation, EF of 60% on previous 2D echo in 2020, will obtain 2D-ECHO 5. Obesity, BMI 38.7, lifestyle modification recommended 6. GERD, continue PPI 7. SOPHY on CPAP QHS 8. DVT PPx- SCDs Charges/Coding Visit Charges Inpatient E&M: 04082 Subs Hosp L3
[2022-09-07] MEDS: Polyethylene Glycol 3350 17 GM PACKET PO ×2 (09:10→21:59)
[2022-09-07] MEDS: Ensure Plus High Protein 120 ML LIQUID PO ×3 (09:11→18:02)
[2022-09-07] MEDS: rifAXIMin 550 MG Tablet PO ×2 (09:12→22:00)
[2022-09-07] MEDS: Pantoprazole Sodium 40 MG Tablet PO ×2 (09:12→22:01)
[2022-09-07] MEDS: Furosemide 40 MG Tablet PO (09:12)
[2022-09-07] MEDS: Midodrine HCl 5 MG Tablet 10 MG PO ×3 (09:12→17:56)
[2022-09-07] MEDS: Acetylcysteine (Mucomyst Oral) 20% SOLN 600 MG PO ×2 (09:14→22:08)
[2022-09-07] MEDS: 0.9% Saline Lock 10 ML Syringe IV ×3 (09:21→18:39)
[2022-09-07] MEDS: Spironolactone 50 MG Tablet 100 MG PO (09:37)
[2022-09-07] MEDS: Albumin Human 25% (100 mL) 25 GM/100 ML BAG IV ×2 (10:14→21:59)
--- NOTE | 2022-09-07 14:52 | CON.PCM.RE_ITS ---
Assessment & Plan Assessment/Plan (1) Renal failure: PLAN: Acute renal failure, new onset within the last 1 month or so. Prior to that creatinine was normal. Most of this hospitalization, creatinine is around 2.0. CT abdomen without any hydronephrosis. Urine analysis looks fairly benign. Primary etiology was cirrhosis from alcohol use, now sober. No history of hepatitis as per him. It seems he recently started taking sleep supplement which has sodium, potassium and calcium. Started requiring paracentesis about the same time. I wonder if the sodium content in the sleep supplement has anything to do with recurrent ascites. Likely etiology is hepatorenal syndrome. Clinically does not look dry. Recent large-volume paracentesis after admission, creatinine was already high. Plan Hold all diuretics Continue albumin, octreotide, midodrine He already has appointment with [facility] transplant hepatology on October 02 as outpatient Discussed with hospitalist Advised him to stay after sleep supplement for now Looks somnolent due to hepatic encephalopathy. Continue lactulose. Discussed with at bedside HPI Consult Data Date of Consult: 09/07/22 HPI Narrative Reason for Consultation: Acute renal failure HPI Narrative: ORTIZ TOVAR, is a 57 M who presents to the hospital with acute renal failure, altered mental status. Nephrology on consultation in view of renal failure. He was diagnosed with cirrhosis about 2 and half years ago, etiology was alcohol. Has been sober since then. Has a appointment with [facility] liver transplant team on October 02 for outpatient evaluation. Recently started following with Dr. Angulo. Started taking a sleep supplement called Xywav which on review contains sodium potassium calcium. He was started on diuretics for ascites. Initial paracentesis was 2 and half years ago when he was diagnosed first, after that he required paracentesis within the last 1 month. Last paracentesis was about 5 L, somewhat bloody fluid. Not sure if this was a traumatic tap. Somewhat somnolent, ammonia levels are fairly high. Still able to give most of the history. Denies any voiding issues. No NSAIDs. PFSH Medical History Alcoholic cirrhosis Congestive heart failure CPAP (continuous positive airway pressure) dependence Former smoker GERD (gastroesophageal reflux disease) GI bleed History of ETOH abuse HLD (hyperlipidemia) HTN (hypertension) Narcolepsy Obstructive sleep apnea Past history of chewing tobacco use Home Medications furosemide 40 mg tablet 40 mg PO MOWEFR edema 08/02/21 [History Last Taken Unknown] lactulose 10 gram/15 mL oral solution 20 g PO TID cirrhosis of the liver 1 [History Last Taken Unknown] pantoprazole 40 mg tablet,delayed release 40 mg PO BID gerd 08/02/21 [History Last Taken Unknown] rifaximin 550 mg tablet (Xifaxan) 550 mg PO BID encephalopathy 08/02/21 [History Last Taken Unknown] spironolactone 100 mg tablet 100 mg PO DAILY edema 08/02/21 [History Last Taken Unknown] carvedilol 3.125 mg tablet 1.56 mg PO BID 09/04/22 [History Last Taken Unknown] modafinil 100 mg tablet 100 mg PO 0900 narcolepsy 09/04/22 [History Last Taken Unknown] modafinil 100 mg tablet 100 mg PO 1300 narcolepsy 09/04/22 [History Last Taken Unknown] modafinil 200 mg tablet 200 mg PO 0600 narcolepsy 09/04/22 [History Last Taken Unknown] Allergy/AdvReac Type Severity Reaction Status Date / Time shellfish derived Allergy Anaphylaxis Verified 09/04/22 15:23 Family History (Updated 09/04/22 @ 22:[address] Cici Forbes MD) Mother Alzheimer disease Father Heart disease Diabetes Surgical History (Updated 09/04/22 @ 22:[address] Cici Forbes MD) H/O partial resection of colon Social History (Updated 09/04/22 @ 22:[address] Cici Forbes MD) household members: spouse Smoking Status: Never smoker Smokeless tobacco user: chewing tobacco how long ago did patient quit smoking: Former chew tobacco, quit 2.5 years prior, chewed 1 can/day since 18. alcohol intake: former details: Quit 2.5 years prior with EtOH abuse history. substance use type: does not use ROS ROS Narrative Negative except above Physical Exam Narrative Alert awake oriented x 3 no obvious distress no pallor no icterus no JVD s1s2 no murmurs lungs clear abdomen soft no organomegaly no edema no cyanosis Lab / Micro Data Result Diagrams: 09/07/22 06:05 09/07/22 06:05 Labs: Laboratory Results - last 24 hr 09/05/22 13:44: Fl Pathologist Comment Reviewed 09/05/22 13:44: Miscellaneous Cytology SEE PATHOLOGY REPORT 09/06/22 07:10: Uric Acid 11.7 H, Ferritin 390 H, Lactate Dehydrogenase 199, Total Creatine Kinase 21 L 09/07/22 06:05: WBC 9.2, RBC 3.67 L, Hgb 12.6 L, Hct 35.3 L, MCV 96.2 H, MCH 34.3 H, MCHC 35.7, RDW Std Deviation 49.4 H, RDW Coeff of Olvin 13.9, Plt Count 135 L, MPV 10.1, Immature Gran % (Auto) 0.500, Neut % (Auto) 73.3 H, Lymph % (Auto) 6.7 L, [place] % (Auto) 14.4 H, Eos % (Auto) 4.1, Baso % (Auto) 1.0, Absolute Neuts (auto) 6.8, Absolute Lymphs (auto) 0.62 L, Nucleated RBC % 0 09/07/22 06:05: Sodium 133 L, Potassium 5.2 H, Chloride 103, Carbon Dioxide 20.0 L, Anion Gap 10, BUN 63 H, Creatinine 2.12 H, Estim Creat Clear Calc 38.74, Est GFR (MDRD) Af Amer 41 L, Est GFR (MDRD) Non-Af 34 L, BUN/Creatinine Ratio 29.7 H , Glucose 112 H, Calcium 9.1, Total Bilirubin 3.10 H, AST 53 H, ALT 31, Alkaline Phosphatase 288 H, Total Protein 6.0 L, Albumin 2.9 L, Globulin 3.1, Albumin/Globulin Ratio 0.9 09/07/22 07:54: Ammonia 138.0 H Micro: Microbiology 09/05/22 13:44 Fluid - Ascites Gram Stain - Final 09/05/22 13:44 Fluid - Ascites Body Fluid Culture - Preliminary No growth-Final to follow 09/05/22 13:44 Fluid - Ascites Anaerobic Culture - Preliminary No growth in 48 hours. Radiology Impression Echocardiogram 09/06/22 14:21 Interpretation Summary The estimated ejection fraction is 70 %. No significant valvular abnormalities Ordering Physician: Pam Colon Performed By: Jessica Adler RCS
[2022-09-07 15:29] LABS: Amylase Body Fluid 23 U/L (.)
[2022-09-07] MEDS: Lactulose 20 GM/30 ML UDC 40 GM PO ×2 (15:41→21:58)
--- NOTE | 2022-09-07 16:15 | PN_ITS ---
Subjective Subjective Patient does seem more encephalopathic today. He said that he had a large bowel movement early this morning around 6. However his ammonia from 7:00 am was 168. He has been eating normally. He denies any abdominal distention. Objective Data Objective Data Vital Signs: Vital Signs Temp Pulse Resp BP Pulse Ox O2 Del Method 98.1 F 65 17 122/60 H 98 Room Air 09/07/22 15:38 09/07/22 15:38 09/07/22 15:38 09/07/22 15:38 09/07/22 15:38 09/07/22 15:38 Oxygen Delivery Method [6] Room Air Oxygen Delivery Method [5] Room Air Oxygen Delivery Method [4] Room Air Oxygen Delivery Method [3] Room Air Oxygen Delivery Method [2] Room Air Oxygen Delivery Method [1 ( Room Air Initial Baseline)] Oxygen Delivery Method Room Air Weight: 271 lb 2.697 oz Body Mass Index (BMI) 40.4 Intake & Output: Intake and Output for Last 24 Hours 09/05/22 09/06/22 09/07/22 23:59 23:59 23:59 Intake Total 1040 / 1040 550 / 550 1290 / 1290 Output Total 7350 / 7750 1250 / 1250 450 / 450 Balance -6310 / -6710 -700 / -700 840 / 840 Lab / Micro Data Result Diagrams: 09/07/22 06:05 09/07/22 06:05 Labs: Laboratory Results - last 24 hr 09/04/22 : Fluid Amylase 23 09/05/22 13:44: Miscellaneous Cytology SEE PATHOLOGY REPORT 09/06/22 07:10: Uric Acid 11.7 H, Ferritin 390 H, Lactate Dehydrogenase 199, Total Creatine Kinase 21 L 09/07/22 06:05: WBC 9.2, RBC 3.67 L, Hgb 12.6 L, Hct 35.3 L, MCV 96.2 H, MCH 34.3 H, MCHC 35.7, RDW Std Deviation 49.4 H, RDW Coeff of Olvin 13.9, Plt Count 135 L, MPV 10.1, Immature Gran % (Auto) 0.500, Neut % (Auto) 73.3 H, Lymph % (Auto) 6.7 L, [place] % (Auto) 14.4 H, Eos % (Auto) 4.1, Baso % (Auto) 1.0, Absolute Neuts (auto) 6.8, Absolute Lymphs (auto) 0.62 L, Nucleated RBC % 0 09/07/22 06:05: Sodium 133 L, Potassium 5.2 H, Chloride 103, Carbon Dioxide 20.0 L, Anion Gap 10, BUN 63 H, Creatinine 2.12 H, Estim Creat Clear Calc 38.74, Est GFR (MDRD) Af Amer 41 L, Est GFR (MDRD) Non-Af 34 L, BUN/Creatinine Ratio 29.7 H , Glucose 112 H, Calcium 9.1, Total Bilirubin 3.10 H, AST 53 H, ALT 31, Alkaline Phosphatase 288 H, Total Protein 6.0 L, Albumin 2.9 L, Globulin 3.1, Albumin/Globulin Ratio 0.9 09/07/22 07:54: Ammonia 138.0 H Micro: Microbiology 09/05/22 13:44 Fluid - Ascites Gram Stain - Final 09/05/22 13:44 Fluid - Ascites Body Fluid Culture - Preliminary No growth-Final to follow 09/05/22 13:44 Fluid - Ascites Anaerobic Culture - Preliminary No growth in 48 hours. 09/04/22 20:00 Nasal Secretion SARS-CoV-2 & FLU Antigen (Rapid) - Final Radiography Diagnostic Testing: Radiology Impression Echocardiogram 09/06/22 14:21 Interpretation Summary The estimated ejection fraction is 70 %. No significant valvular abnormalities Ordering Physician: Pam Colon Performed By: Jessica Adler RCS Physical Exam Narrative Physical exam: General: Alert, Oriented x3, Cooperative, morbidly obese, not on oxygen HEENT: Atraumatic Oral: Moist Mucosa Neck: Supple Lungs: Diminished to auscultation Cardiovascular: HS I+II, regular, no murmurs Abdomen:Distended, obese anterior abdominal wall Bowel Sounds Present, Soft, Non Tender Extremities:Bilateral leg edema trace Skin: No rashes, No breakdown Neurological: Grossly intact Psych/Mental Status: Appropriate Assessment & Plan Assessment/Plan (1) Renal failure: PLAN: Acute renal failure possibly secondary to acute tubular necrosis, prerenal azotemia, hepatorenal syndrome type II, medication induced injury secondary to diuretic therapy. Awaiting nephrology consult. Continue midodrine, albumin and octreotide. He is also Mucomyst. (2) Ascites: PLAN: Status post large-volume paracentesis of 5.7 L with albumin. Antibiotic therapy due to the cloudiness seen on his ascitic fluid. He will be maintained ciprofloxacin 7 mg p.o. q. weekly for SBP prophylaxis. Awaiting echocardiogram of the heart to see if he is having any signs of cardiac cirrhosis which would lead to worsening ascites. (3) Cirrhosis: PLAN: Meld is still 22 with a child Jauregui class B status. Lactulose will be increased to 40 mg p.o. every 4 hours. After he is less than 40 then he can go back to 20 mg daily every 8 hours. Charges/Coding Visit Charges Inpatient E&M: 20747 [facility] Hosp L3
[2022-09-07] MEDS: Ondansetron 4 MG/2 ML Vial IV (18:39)
[2022-09-08] VITALS (8 sets, daily range): BP systolic 115–129; BP diastolic 53–64; PULSE 57–69; RESP 16–18; TEMP 36.6–37.1; O2SAT 98–99
[2022-09-08] MEDS: Lactulose 20 GM/30 ML UDC 40 GM PO ×6 (02:46→21:31)
[2022-09-08] MEDS: Ondansetron 4 MG/2 ML Vial IV ×2 (02:46→17:36)
[2022-09-08] MEDS: 0.9% Saline Lock 10 ML Syringe IV ×3 (02:50→17:36)
[2022-09-08 05:19] LABS: Absolute Lymphocyte Count 0.52 X10^3/uL (0.83-4.51); Absolute Neutrophil Count 7.3 X10^3/uL (2.0-7.7); Eosinophil# 0.32 X10^3/uL; Eosinophils% 3.3 % (0-5); Hemoglobin 11.7 g/dL (13.0-16.5); Lymphocyte # 0.52 X10^3/ul (0.83-4.51); Lymphocyte % 5.4 % (19-41); Mean Corp Hgb Conc 34.4 g/dL (32-36); Mean Corpuscular Hgb 33.7 pg (27.0-32.0); Mean Platelet Vol. 10.6 fl (6.2-12.0); Monocyte# 1.39 X10^3/uL; Monocyte% 14.4 % (0-10); NRBC Flagged by Analyzer 0 % (0-5); Neutrophil # 7.28 X10^3/uL (2.7-7.7); Neutrophil % 75.4 % (47-70); POSITIVE DIFFERENTIAL YES; Platelet Count 129 K/mm3 (150-450); RBC Distribution Width CV 13.8 % (11.6-14.6); RBC Distribution Width SD 49.8 fl (35.1-43.9); Red Blood Count 3.47 M/mm3 (4.6-6.2); White Blood Count 9.7 K/mm3 (4.4-11.0)
[2022-09-08 05:20] LABS: Differential Indicated SCAN CRITERIA MET
[2022-09-08 05:39] LABS: Differential Comment SCANNED
[2022-09-08 05:43] LABS: ALB/GLOB Ratio 1.2 RATIO (0.9-2.4); AST(SGOT) 37 U/L (15-37); Alanine Aminotransfer ALT/SGPT 27 U/L (16-61); Albumin, Serum 3.1 g/dL (3.2-5.0); Alkaline Phosphatase 221 U/L (45-117); Anion Gap 10 (5-15); BUN 56 mg/dL (7-18); BUN/Creat Ratio 27.2 RATIO (10-20); Calcium,Total 9.2 mg/dL (8.5-10.1); Chloride 108 mmol/L (98-107); Creatinine, Serum 2.06 mg/dL (0.70-1.30); EST Glomerular Filtration Rate 35 mL/min (>60); Est Glom Filt Rate - Afr Amer 43 mL/min (>60); Estimated Creatinine Clearance 39.87 ml/min; Globulin 2.6 g/dL (2.2-4.2); Glucose 115 mg/dL (74-106); Potassium 5.1 mmol/L (3.5-5.1); Protein, Total 5.7 g/dL (6.4-8.2); Sodium Level 139 mmol/L (136-145)
[2022-09-08] MEDS: Octreotide 0.1 MG/ML ML SC ×3 (05:52→21:44)
[2022-09-08 05:57] LABS: Urine Sodium 16 mmol/L (Not Establ.)
[2022-09-08 07:03] LABS: Osmolality, Urine 614 mOsm/KG
[2022-09-08] MEDS: Ensure Plus High Protein 120 ML LIQUID PO ×3 (08:49→17:42)
[2022-09-08] MEDS: Midodrine HCl 5 MG Tablet 10 MG PO ×3 (08:49→17:42)
[2022-09-08] MEDS: rifAXIMin 550 MG Tablet PO ×2 (09:53→21:33)
[2022-09-08] MEDS: Pantoprazole Sodium 40 MG Tablet PO ×2 (09:54→21:33)
[2022-09-08] MEDS: Polyethylene Glycol 3350 17 GM PACKET PO ×2 (09:54→21:32)
[2022-09-08] MEDS: Acetylcysteine (Mucomyst Oral) 20% SOLN 600 MG PO ×2 (09:54→21:33)
[2022-09-08] MEDS: Nystatin Powder 15gm Bottle 1 APPLIC TOPICAL ×2 (09:59→21:36)
[2022-09-08] MEDS: Albumin Human 25% (100 mL) 25 GM/100 ML BAG IV ×2 (10:52→21:43)
--- NOTE | 2022-09-08 15:21 | PN.HOSP_ITS ---
Subjective Subjective Follow-up on ascites/acute hepatic encephalopathy: Patient was seen and examined.? He remains slightly sleepy on conversation.? His ammonia level is elevated to 104.? He denies any abdominal pain or fever. Objective Data Objective Data Vital Signs: Vital Signs Temp Pulse Resp BP Pulse Ox O2 Del Method 97.8 F 69 17 126/59 H 99 Room Air 09/08/22 09:00 09/08/22 09:00 09/08/22 09:00 09/08/22 09:00 09/08/22 09:00 09/08/22 09:00 Oxygen Delivery Method [6] Room Air Oxygen Delivery Method [5] Room Air Oxygen Delivery Method [4] Room Air Oxygen Delivery Method [3] Room Air Oxygen Delivery Method [2] Room Air Oxygen Delivery Method [1 ( Room Air Initial Baseline)] Oxygen Delivery Method Room Air Weight: 121.5 kg Body Mass Index (BMI) 40.4 Intake & Output: Intake and Output for Last 24 Hours 09/06/22 09/07/22 09/08/22 23:59 23:59 23:59 Intake Total 550 / 550 1690 / 1690 1090 / 1090 Output Total 1250 / 1250 1100 / 1100 200 / 200 Balance -700 / -700 590 / 590 890 / 890 Lab / Micro Data Result Diagrams: 09/08/22 05:13 09/08/22 05:13 Labs: Laboratory Results - last 24 hr 09/04/22 : Fluid Amylase 23 09/08/22 05:13: WBC 9.7, RBC 3.47 L, Hgb 11.7 L, Hct 34.0 L, MCV 98.0 H, MCH 33.7 H, MCHC 34.4, RDW Std Deviation 49.8 H, RDW Coeff of Olvin 13.8, Plt Count 129 L, MPV 10.6, Immature Gran % (Auto) 0.500, Neut % (Auto) 75.4 H, Lymph % (Auto) 5.4 L, [place] % (Auto) 14.4 H, Eos % (Auto) 3.3, Baso % (Auto) 1.0, Absolute Neuts (auto) 7.3, Absolute Lymphs (auto) 0.52 L, Nucleated RBC % 0, Differential Comment SCANNED 09/08/22 05:13: Sodium 139, Potassium 5.1, Chloride 108 H, Carbon Dioxide 21.0, Anion Gap 10, BUN 56 H, Creatinine 2.06 H, Estim Creat Clear Calc 39.87, Est GFR (MDRD) Af Amer 43 L, Est GFR (MDRD) Non-Af 35 L, BUN/Creatinine Ratio 27.2 H, Glucose 115 H, Calcium 9.2, Total Bilirubin 3.60 H, AST 37, ALT 27, Alkaline Phosphatase 221 H, Total Protein 5.7 L, Albumin 3.1 L, Globulin 2.6, Albumin/Globulin Ratio 1.2 09/08/22 05:13: Ammonia 104.0 H 09/08/22 05:38: Urine Osmolality 614, Ur Random Sodium 16 Micro: Microbiology 09/05/22 13:44 Fluid - Ascites Gram Stain - Final 09/05/22 13:44 Fluid - Ascites Body Fluid Culture - Preliminary No growth-Final to follow 09/05/22 13:44 Fluid - Ascites Anaerobic Culture - Preliminary No growth in 48 hours. 09/04/22 20:00 Nasal Secretion SARS-CoV-2 & FLU Antigen (Rapid) - Final Physical Exam Narrative Physical exam: General: Alert, Oriented x3, slightly lethargic cooperative, morbidly obese, not on oxygen HEENT: Atraumatic Oral: Moist Mucosa Neck: Supple Lungs: Diminished to auscultation Cardiovascular: HS I+II, regular, no murmurs Abdomen:Obese anterior abdominal wall Bowel Sounds Present, Soft, Non Tender Extremities:Bilateral leg edema trace Skin: No rashes, No breakdown Neurological: Grossly intact Psych/Mental Status: Appropriate Assessment & Plan Assessment/Plan (1) Cirrhosis: PLAN: Plan 1. Liver cirrhosis, decompensated with ascites and hepatic encephalopathy Status post paracentesis on 09/05/2022; 5.7 L of reddish cloudy fluid removed Fluid analysis was cloudy with WBC count of 330, ascitic fluid cultures are negative Ammonia level is increased to 104 Continue with increased dose of lactulose, rifaximin, miralax added, ceftriaxone GI following 2. Increase in creatinine to 2.2 from 1.93, patient with underlying CKD stage IIIb Spironolactone, Lasix discontinued Nephrology following 3. Relative hypotension, blood pressures are better, Continue to monitor off blood pressure medications 4. History of diastolic CHF, not in acute decompensation, EF of 60% on previous 2D echo in 2019, will obtain 2D-ECHO 5. Obesity, BMI 38.7, lifestyle modification recommended 6. GERD, continue PPI 7. SOPHY on CPAP QHS 8. DVT PPx- SCDs Charges/Coding Visit Charges Inpatient E&M: 01477 Subs Hosp L3
--- NOTE | 2022-09-08 19:46 | PCM.PROGNOTE ---
Subjective Subjective Patient says he is feels fine but he is very sluggish when speaking. He is having less word finding than yesterday. Objective Data Objective Data Vital Signs: Vital Signs Temp Pulse Resp BP Pulse Ox O2 Del Method 97.8 F 65 17 127/64 H 98 Room Air 09/08/22 15:35 09/08/22 15:35 09/08/22 15:35 09/08/22 15:35 09/08/22 15:35 09/08/22 15:35 Oxygen Delivery Method [6] Room Air Oxygen Delivery Method [5] Room Air Oxygen Delivery Method [4] Room Air Oxygen Delivery Method [3] Room Air Oxygen Delivery Method [2] Room Air Oxygen Delivery Method [1 ( Room Air Initial Baseline)] Oxygen Delivery Method Room Air Weight: 267 lb 13.786 oz Body Mass Index (BMI) 40.4 Intake & Output: Intake and Output for Last 24 Hours 09/06/22 09/07/22 09/08/22 23:59 23:59 23:59 Intake Total 550 / 550 1690 / 1690 1670 / 1670 Output Total 1250 / 1250 1100 / 1100 200 / 200 Balance -700 / -700 590 / 590 1470 / 1470 Lab / Micro Data Result Diagrams: 09/08/22 05:13 09/08/22 05:13 Labs: Laboratory Results - last 24 hr 09/08/22 05:13: WBC 9.7, RBC 3.47 L, Hgb 11.7 L, Hct 34.0 L, MCV 98.0 H, MCH 33.7 H, MCHC 34.4, RDW Std Deviation 49.8 H, RDW Coeff of Olvin 13.8, Plt Count 129 L, MPV 10.6, Immature Gran % (Auto) 0.500, Neut % (Auto) 75.4 H, Lymph % (Auto) 5.4 L, [place] % (Auto) 14.4 H, Eos % (Auto) 3.3, Baso % (Auto) 1.0, Absolute Neuts (auto) 7.3, Absolute Lymphs (auto) 0.52 L, Nucleated RBC % 0, Differential Comment SCANNED 09/08/22 05:13: Sodium 139, Potassium 5.1, Chloride 108 H, Carbon Dioxide 21.0, Anion Gap 10, BUN 56 H, Creatinine 2.06 H, Estim Creat Clear Calc 39.87, Est GFR (MDRD) Af Amer 43 L, Est GFR (MDRD) Non-Af 35 L, BUN/Creatinine Ratio 27.2 H, Glucose 115 H, Calcium 9.2, Total Bilirubin 3.60 H, AST 37, ALT 27, Alkaline Phosphatase 221 H, Total Protein 5.7 L, Albumin 3.1 L, Globulin 2.6, Albumin/Globulin Ratio 1.2 09/08/22 05:13: Ammonia 104.0 H 09/08/22 05:38: Urine Osmolality 614, Ur Random Sodium 16 Micro: Microbiology 09/05/22 13:44 Fluid - Ascites Gram Stain - Final 09/05/22 13:44 Fluid - Ascites Body Fluid Culture - Preliminary No growth-Final to follow 09/05/22 13:44 Fluid - Ascites Anaerobic Culture - Preliminary No growth in 48 hours. 09/04/22 20:00 Nasal Secretion SARS-CoV-2 & FLU Antigen (Rapid) - Final Physical Exam Narrative Physical exam: General: Alert, Oriented x3, slightly lethargic cooperative, morbidly obese, not on oxygen HEENT: Atraumatic Oral: Moist Mucosa Neck: Supple Lungs: Diminished to auscultation Cardiovascular: HS I+II, regular, no murmurs Abdomen:Obese anterior abdominal wall Bowel Sounds Present, Soft, Non Tender Extremities:Bilateral leg edema trace Skin: No rashes, No breakdown Neurological: Grossly intact Psych/Mental Status: Appropriate Assessment & Plan Assessment/Plan (1) Renal failure: PLAN: Differential diagnosis for his renal failure does include hepatorenal syndrome type II. He is being treated for hepatorenal syndrome type II. That does increase his meld and need for an evaluation for liver transplant. I suspect that the new medicine that he was getting is being poorly filtered through the kidney and the liver (2) Ascites: PLAN: . He does not seem to be accumulating a lot of fluid either his paracentesis. Continue daily weights. He should have a 200 mg sodium restriction. 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 His twin brother is coming up and is willing to be evaluated for living donor transplant. He has an appointment on October [address] [facility] with a transplant lead python developer. I encouraged him to keep that appointment as he is now decompensated cirrhosis. His meld seems to have stabilized . He will need to have an upper endoscopy to see if there is any signs of worsening portal gastropathy or worsening varices that would contribute to his increasing meld. (4) Encephalopathy: PLAN: his ammonia is at 101. This is improved from 138. Continue current recommendations for encephalopathy including MiraLAX and lactulose along with Xifaxan therapy. Neomycin is not indicated at this time due to his renal failure. Charges/Coding Visit Charges Inpatient E&M: 11500 Subs Hosp L3
[2022-09-08] MEDS: proCHLORPERazine 10 MG/2 ML Vial 5 MG IV (21:52)
[2022-09-09] VITALS (7 sets, daily range): BP systolic 110–120; BP diastolic 57–61; PULSE 61–73; RESP 16–18; TEMP 36.7; O2SAT 97–100
[2022-09-09] MEDS: Lactulose 20 GM/30 ML UDC 40 GM PO ×3 (02:46→10:42)
[2022-09-09 05:21] LABS: Absolute Lymphocyte Count 0.64 X10^3/uL (0.83-4.51); Basophil% 1.2 % (0-1); Eosinophil# 0.48 X10^3/uL; Eosinophils% 5.6 % (0-5); Hematocrit 32.8 % (40-54); Hemoglobin 11.2 g/dL (13.0-16.5); Lymphocyte # 0.64 X10^3/ul (0.83-4.51); Lymphocyte % 7.5 % (19-41); Mean Corp Hgb Conc 34.1 g/dL (32-36); Mean Corpuscular Hgb 33.7 pg (27.0-32.0); Mean Corpuscular Volume 98.8 fL (80-94); Mean Platelet Vol. 10.6 fl (6.2-12.0); Monocyte# 1.29 X10^3/uL; Monocyte% 15.2 % (0-10); NRBC Flagged by Analyzer 0 % (0-5); Neutrophil # 5.95 X10^3/uL (2.7-7.7); Platelet Count 118 K/mm3 (150-450); RBC Distribution Width CV 14.1 % (11.6-14.6); RBC Distribution Width SD 50.8 fl (35.1-43.9); Red Blood Count 3.32 M/mm3 (4.6-6.2); White Blood Count 8.5 K/mm3 (4.4-11.0)
[2022-09-09] MEDS: Octreotide 0.1 MG/ML ML SC (05:43)
[2022-09-09 05:48] LABS: ALB/GLOB Ratio 1.2 RATIO (0.9-2.4); AST(SGOT) 39 U/L (15-37); Alanine Aminotransfer ALT/SGPT 25 U/L (16-61); Albumin, Serum 3.2 g/dL (3.2-5.0); Alkaline Phosphatase 190 U/L (45-117); Anion Gap 8 (5-15); BUN 45 mg/dL (7-18); BUN/Creat Ratio 23.6 RATIO (10-20); Calcium,Total 9.1 mg/dL (8.5-10.1); Chloride 111 mmol/L (98-107); Creatinine, Serum 1.91 mg/dL (0.70-1.30); EST Glomerular Filtration Rate 39 mL/min (>60); Est Glom Filt Rate - Afr Amer 47 mL/min (>60); Globulin 2.6 g/dL (2.2-4.2); Glucose 106 mg/dL (74-106); Potassium 4.8 mmol/L (3.5-5.1); Protein, Total 5.8 g/dL (6.4-8.2); Sodium Level 140 mmol/L (136-145)
[2022-09-09 10:28] LABS: Alpha Antitrypsin Serum 137 mg/dL (101-187); Anti-Mitochondrial AB <20.0 Units (0.0-20.0)
[2022-09-09] MEDS: Ensure Plus High Protein 120 ML LIQUID PO (10:41)
[2022-09-09] MEDS: Midodrine HCl 5 MG Tablet 10 MG PO ×2 (10:41→12:09)
[2022-09-09] MEDS: Pantoprazole Sodium 40 MG Tablet PO (10:42)
[2022-09-09] MEDS: rifAXIMin 550 MG Tablet PO (10:42)
[2022-09-09] MEDS: Polyethylene Glycol 3350 17 GM PACKET PO (10:43)
[2022-09-09] MEDS: Nystatin Powder 15gm Bottle 1 APPLIC TOPICAL (10:43)
[2022-09-09] MEDS: Acetylcysteine (Mucomyst Oral) 20% SOLN 600 MG PO (10:48)
[2022-09-09] MEDS: Albumin Human 25% (100 mL) 25 GM/100 ML BAG IV (12:04)
--- NOTE | 2022-09-09 12:39 | DCINST_ITS ---
Discharge Instructions Diet Discharge Diet: Low fat / Low cholesterol and 2000 mg Sodium Diet Activity Discharge Activity: Return to Normal Activity Follow Up Care Test Results: Test results from this visit will be discussed in further detail at your follow- up appointment, if applicable. Discharge Plan Admission Admit Date/Time: 09/04/22 20:43 Primary Reason for Your Visit: Ascites Attending Provider: Pam Colon Primary Care Provider: Jake Fraser Consulting Providers: Cici Forbes ; Tiffany Jaramillo Instructions Additional Instructions / Restrictions: Take note of changes to your medication Continue on your stool softeners and aim for more than 4 bowel movements a day Follow-up with your primary care doctor within 1 week for repeat blood work Follow-up with nephrology and also follow-up with GI Discharge Orders/Prescriptions Prescriptions: New polyethylene glycol 3350 17 gram Powder In Packet 17 g PO BID 30 Days Qty: 60 0RF midodrine 5 mg Tablet 10 mg PO TIDCM 30 Days Qty: 180 0RF lactulose 20 gram/30 mL Solution 40 g PO Q4 30 Days Qty: 36256 0RF Continued pantoprazole 40 mg tablet,delayed release (DR/EC) 40 mg PO BID Xifaxan 550 mg tablet 550 mg PO BID Label Comments: TAKE 1 TABLET BY MOUTH TWO TIMES A DAY Discontinued furosemide 40 mg tablet 40 mg PO Label Comments: take 1 tablet by mouth once daily (2 TABS ON SATURDAY AND SATURDAY) Rx Instructions: Saturday/Saturday/Saturday only spironolactone 100 mg tablet 100 mg PO DAILY Label Comments: take 2 tablets by mouth once daily lactulose 10 gram/15 mL solution 20 g PO TID modafinil 200 mg tablet 200 mg PO 0600 Label Comments: take 1 tablet by mouth every morning and 1 tablet by mouth every evening modafinil 100 mg Tablet 100 mg PO 0900 modafinil 100 mg Tablet 100 mg PO 1300 carvedilol 3.125 mg tablet 1.56 mg PO BID Label Comments: START WITH 1 TAB once daily for 7 days then INCREASE to 1 tablet by mouth twice a day Rx Instructions: takes 1/2 of 3.125 mg BID Referrals / Follow Up: Jake Fraser MD [Primary Care Provider] - In 1 Week Rubi Inman DO [Med Staff - Consulting] - Within 2 Weeks Boaz Angulo DO [Med Staff - Active Staff] - Within 2 Weeks Disposition Disposition (needs filled in before D/C Order can be placed): Home, Self Care
--- NOTE | 2022-09-09 12:44 | PCM.DC.SUM ---
Providers Date of Admission: 09/04/22 Date of Discharge: 09/09/22 Primary Care Physician: Dr. Jake Fraser MD Consultations 09/04/22 22:47 Consult: Gastroenterology Routine Consulting Provider: [facility] Reason for Consult: Decompensated cirrhosis. EMERGENT Consult: No Notified: Yes Date Notified: 09/04/22 Time Notified: 21:47 Method of Notification: Text 09/06/22 14:21 Consult: Nephrology Routine Consulting Provider: Tiffany Jaramillo Reason for Consult: CKD, liver cirrhosis EMERGENT Consult: No Notified: Yes Date Notified: 09/06/22 Time Notified: 14:26 Method of Notification: Answering Service Reason For Visit: DECOMPENSATED CIRRHOSIS Diagnosis Discharge Diagnosis (1) Renal failure: Status: Acute Code(s): N19 - Unspecified kidney failure (2) Ascites: Status: Acute Code(s): R18.8 - Other ascites (3) Cirrhosis: Status: Acute Code(s): K74.60 - Unspecified cirrhosis of liver (4) Encephalopathy: Status: Acute Code(s): G93.40 - Encephalopathy, unspecified Plan 1. Liver cirrhosis, decompensated with ascites and hepatic encephalopathy 2. CKD stage IIIb 3. Relative hypotension 4. History of diastolic CHF, not in acute decompensation, EF of 70% 5. Obesity, BMI 38.7 6. GERD 7. SOPHY on CPAP Medications at Discharge Home Medications pantoprazole 40 mg tablet,delayed release 40 mg PO BID gerd 08/02/21 rifaximin 550 mg tablet (Xifaxan) 550 mg PO BID encephalopathy 08/02/21 lactulose 20 gram/30 mL oral solution 40 g (60 mL) PO Q4 30 days #10,800 mL 09/09/22 midodrine 5 mg tablet 10 mg PO TIDCM 30 days #180 tabs 09/09/22 polyethylene glycol 3350 17 gram oral powder packet 17 g PO BID 30 days #60 ea 09/09/22 Hospital Course Operations None Procedures Paracentesis Summary of Care Provided Minutes Spent on Discharge: 40 Hospital Course: 57-year-old male with past medical history of alcoholic liver cirrhosis, of alcohol, history of SOPHY on CPAP, chronic heart failure preserved EF, GERD, lupus follows with Dr. Ramirez comes in with progressive fatigue, malaise and generalized abdominal discomfort. Patient recently had 5.5 L of fluid removed in the outpatient. He had a bruise in his right flank subsequently. He has outpatient paracentesis set up. Patient's work-up in the emergency room showed stable vitals. Patient's admitting blood work was significant for creatinine 1.92, total bilirubin 3.4, AST and ALT were 63 and 32, ALP was 312. CT of the abdomen pelvis showed nodular liver, large amount of ascites. Patient underwent paracentesis on 09/05/22 and 5.7 L of reddish cloudy fluid were removed. Patient did receive 50 g of albumin. GI was consulted. He was also started on IV ceftriaxone. His fluid analysis showed cells of 330. Patient's cultures came back negative. Patient has slight elevation in his creatinine to 2.12 from 1.9. His ammonia also increased to 134. He was put on an increased dose of lactulose as well as MiraLAX. He also was started on octreotide and midodrine. Patient was seen by nephrology and his Lasix and spironolactone were discontinued. His creatinine improved back to his baseline of 1.9. Patient was discharged on spironolactone and Lasix. He will follow-up with his primary care doctor, nephrology and GI in the outpatient. He does to continue with the current dose of Lasix and lactulose. He will follow-up for repeat blood work on his kidney function. Patient's ammonia at the time of discharge was 74. Physical Exam Narrative Physical exam: General: Alert, Oriented x3, slightly lethargic cooperative, morbidly obese, not on oxygen HEENT: Atraumatic Oral: Moist Mucosa Neck: Supple Lungs: Diminished to auscultation Cardiovascular: HS I+II, regular, no murmurs Abdomen:Obese anterior abdominal wall Bowel Sounds Present, Soft, Non Tender Extremities:Bilateral leg edema trace Skin: No rashes, No breakdown Neurological: Grossly intact Psych/Mental Status: Appropriate Weight / BMI Weight Weight: 109.1 kg Body Mass Index (BMI) 40.4 ABG / Lab / Microbiology Data Result Diagrams: 09/09/22 05:11 09/09/22 05:11 Laboratory: Laboratory Results - last 24 hr 09/07/22 06:05: [id number] 137, Anti-Mitochondrial Ab <20.0 09/09/22 05:11: WBC 8.5, RBC 3.32 L, Hgb 11.2 L, Hct 32.8 L, MCV 98.8 H, MCH 33.7 H, MCHC 34.1, RDW Std Deviation 50.8 H, RDW Coeff of Olvin 14.1, Plt Count 118 L, MPV 10.6, Immature Gran % (Auto) 0.500, Neut % (Auto) 70.0, Lymph % (Auto) 7.5 L, [place] % (Auto) 15.2 H, Eos % (Auto) 5.6 H, Baso % (Auto) 1.2 H, Absolute Neuts (auto) 6.0, Absolute Lymphs (auto) 0.64 L, Nucleated RBC % 0 09/09/22 05:11: Sodium 140, Potassium 4.8, Chloride 111 H, Carbon Dioxide 21.0, Anion Gap 8, BUN 45 H, Creatinine 1.91 H, Estim Creat Clear Calc 43.00, Est GFR (MDRD) Af Amer 47 L, Est GFR (MDRD) Non-Af 39 L, BUN/Creatinine Ratio 23.6 H, Glucose 106, Calcium 9.1, Total Bilirubin 4.30 H, AST 39 H, ALT 25, Alkaline Phosphatase 190 H, Total Protein 5.8 L, Albumin 3.2, Globulin 2.6, Albumin/Globulin Ratio 1.2 09/09/22 05:11: Ammonia 74.0 H Microbiology: Microbiology 09/05/22 13:44 Fluid - Ascites Gram Stain - Final 09/05/22 13:44 Fluid - Ascites Body Fluid Culture - Final No growth aerobically. 09/05/22 13:44 Fluid - Ascites Anaerobic Culture - Preliminary No growth in 48 hours. 09/04/22 20:00 Nasal Secretion SARS-CoV-2 & FLU Antigen (Rapid) - Final D/C Instructions Discharge Diet: Low fat / Low cholesterol and 2000 mg Sodium Diet Meaningful Use Info Meaningful Use Diagnoses (Choose all that apply): None applicable Discharge Plan Admission Admit Date/Time: 09/04/22 20:43 Primary Reason for Your Visit: Ascites Attending Provider: Pam Colon Primary Care Provider: Jake Fraser Consulting Providers: Cici Forbes ; Tiffany Jaramillo Instructions Additional Instructions / Restrictions: Take note of changes to your medication Continue on your stool softeners and aim for more than 4 bowel movements a day Follow-up with your primary care doctor within 1 week for repeat blood work Follow-up with nephrology and also follow-up with GI Continue on a low salt diet Discharge Orders/Prescriptions Prescriptions: New polyethylene glycol 3350 17 gram Powder In Packet 17 g PO BID 30 Days Qty: 60 0RF midodrine 5 mg Tablet 10 mg PO TIDCM 30 Days Qty: 180 0RF lactulose 20 gram/30 mL Solution 40 g PO Q4 30 Days Qty: 78693 0RF Continued pantoprazole 40 mg tablet,delayed release (DR/EC) 40 mg PO BID Xifaxan 550 mg tablet 550 mg PO BID Label Comments: TAKE 1 TABLET BY MOUTH TWO TIMES A DAY Discontinued furosemide 40 mg tablet 40 mg PO Label Comments: take 1 tablet by mouth once daily (2 TABS ON SATURDAY AND SATURDAY) Rx Instructions: Saturday/Saturday/Saturday only spironolactone 100 mg tablet 100 mg PO DAILY Label Comments: take 2 tablets by mouth once daily lactulose 10 gram/15 mL solution 20 g PO TID modafinil 200 mg tablet 200 mg PO 0600 Label Comments: take 1 tablet by mouth every morning and 1 tablet by mouth every evening modafinil 100 mg Tablet 100 mg PO 0900 modafinil 100 mg Tablet 100 mg PO 1300 carvedilol 3.125 mg tablet 1.56 mg PO BID Label Comments: START WITH 1 TAB once daily for 7 days then INCREASE to 1 tablet by mouth twice a day Rx Instructions: takes 1/2 of 3.125 mg BID Referrals / Follow Up: Rubi Inman DO [Med Staff - Consulting] - Within 2 Weeks Jake Fraser MD [Primary Care Provider] - In 1 Week Boaz Angulo DO [Med Staff - Active Staff] - Within 2 Weeks Disposition Disposition (needs filled in before D/C Order can be placed): Home, Self Care Charges/Coding Visit Charges Inpatient E&M: 20856 Disch Hosp
[2022-09-11 00:07] LABS: Alpha-1-Globulins 0.2 g/dL (0.0-0.4); Alpha-2-Globulins 0.6 g/dL (0.4-1.0); Ceruloplasmin 19.9 mg/dL (16.0-31.0); Gamma Globulin 0.9 g/dL (0.4-1.8); Immunoglobulin A 358 mg/dL (90-386); Immunoglobulin G 865 mg/dL (603-1613); Immunoglobulin M 126 mg/dL (20-172); PROEL- TOTAL PROTEIN 5.7 g/dL (6.0-8.5)
[2022-09-11 13:26] LABS: Aldolase 4.1 U/L (3.3-10.3); Anti-Smooth Muscle ABS 13 Units (0-19)
[2022-09-11 13:27] LABS: AFP, Tumor Marker 7.9 ng/mL (0.0-8.4); Copper, Serum or Plasma 91 ug/dL (69-132)
[2022-09-12 15:03] LABS: Glucose, Body Fluid 143 mg/dL (40-70)
== END 2022-09-09 14:08 | disposition home or self-care (01) | DRG 432 ==
LOC: ED 21:23 → PCU 21:29
PROVIDERS: Internal Medicine Gastroenterology; Admitting Provider Family Medicine; Emergency Provider Emergency Medicine; PCP Family Medicine; Visit Provider Internal Medicine
DX: K70.31 Alcoholic cirrhosis of liver with ascites (principal); K76.7 Hepatorenal syndrome; I13.0 Hypertensive heart and chronic kidney disease with heart failure and stage 1 through stage 4 chronic kidney disease, or unspecified chronic kidney disease; R17 Unspecified jaundice; I50.32 Chronic diastolic (congestive) heart failure; I85.00 Esophageal varices without bleeding; Z68.41 Body mass index [BMI] 40.0-44.9, adult; I95.9 Hypotension, unspecified; N18.32 Chronic kidney disease, stage 3b; E78.5 Hyperlipidemia, unspecified; E87.5 Hyperkalemia; K21.9 Gastro-esophageal reflux disease without esophagitis; G47.33 Obstructive sleep apnea (adult) (pediatric); K76.9 Liver disease, unspecified; Z87.891 Personal history of nicotine dependence; G47.419 Narcolepsy without cataplexy; K76.82 Hepatic encephalopathy; E66.9 Obesity, unspecified; Z79.899 Other long term (current) drug therapy
CPT/HCPCS: 36415; 49083; 71045; 74176; 80053; 81001; 81002; 82085; 82103; 82105; 82140; 82150; 82390; 82525; 82550; 82728; 82784; 82945; 83516; 83605; 83615; 83690; 83935; 84157; 84165; 84300; 84550; 85025; 85610; 85730; 86334; 87070; 87075; 87205; 87428; 88108; 88305; 88313; 89050; 93306; 97802; 99251; 99285; 99406; P9047; Q9957; A4216; G0463; J0696; J1940; J2354; J2405

== ENCOUNTER → 2022-09-12 | Outpatient (CLI) | payer BC, SELFPAY ==
--- NOTE | 2022-09-12 10:24 | US_ITS ---
PROCEDURE: Ultrasound guided paracentesis. DATE OF EXAMINATION: 09/12/2022. INDICATION: Male, 57 years old. Ascites. PHYSICIAN: Tutu Tong M.D. TECHNIQUE: The risks, benefits, and alternatives to the procedure were explained to the patient. The specific risks of bleeding, infection, and damage to bowel were detailed and accepted. Witnessed informed consent was obtained. The abdomen was ultrasonographically surveyed. An appropriate pocket of fluid was identified at the right lower quadrant. The skin were cleaned and prepped in the usual sterile fashion. Using ultrasound guidance, the peritoneal cavity was accessed with a 5-Georgian paracentesis needle/catheter system. The trocar was removed. A total of 600 ml of blood tinged fluid were removed from the peritoneal cavity. The catheter was removed and a sterile dressing was applied. The procedure was well tolerated. US/Paracentesis with US IMPRESSION: Ultrasound guided paracentesis. Electronically Signed: Tutu Tong MD at 11:39 EST ,
[2022-09-12 11:05] VITALS: BP 101/53; BP 98/45; BP 99/47; PULSE 67; PULSE 68; PULSE 76; RESP 16; TEMP 36.9; O2SAT 98; O2SAT 99
[2022-09-12] MEDS: Lidocaine 2% (20 ml mdv) 20 ML Vial INFILT (11:10)
== END | disposition home or self-care (01) ==
PROVIDERS: PCP Family Medicine; Referring Provider Internal Medicine Gastroenterology; Visit Provider Internal Medicine Gastroenterology
DX: R18.8 Other ascites (principal); K74.60 Unspecified cirrhosis of liver
CPT/HCPCS: 49083

== ENCOUNTER → 2022-09-13 | Outpatient (CLI) | payer BC, SELFPAY ==
[2022-09-13 15:01] LABS: Absolute Lymphocyte Count 0.51 X10^3/uL (0.83-4.51); Absolute Neutrophil Count 6.9 X10^3/uL (2.0-7.7); Eosinophil# 0.38 X10^3/uL; Hematocrit 35.5 % (40-54); Hemoglobin 12.4 g/dL (13.0-16.5); Lymphocyte # 0.51 X10^3/ul (0.83-4.51); Lymphocyte % 5.4 % (19-41); Mean Corp Hgb Conc 34.9 g/dL (32-36); Mean Corpuscular Volume 100.3 fL (80-94); Mean Platelet Vol. 11.4 fl (6.2-12.0); Monocyte# 1.53 X10^3/uL; Monocyte% 16.1 % (0-10); NRBC Flagged by Analyzer 0 % (0-5); Neutrophil # 6.92 X10^3/uL (2.7-7.7); Neutrophil % 72.6 % (47-70); POSITIVE DIFFERENTIAL YES; Platelet Count 130 K/mm3 (150-450); RBC Distribution Width CV 14.1 % (11.6-14.6); RBC Distribution Width SD 51.9 fl (35.1-43.9); Red Blood Count 3.54 M/mm3 (4.6-6.2); White Blood Count 9.5 K/mm3 (4.4-11.0)
[2022-09-13 15:04] LABS: Differential Indicated SCAN CRITERIA MET
[2022-09-13 15:25] LABS: BUN 55 mg/dL (7-18); Creatinine, Serum 2.26 mg/dL (0.70-1.30); Glucose 110 mg/dL (74-106)
[2022-09-13 15:26] LABS: ALB/GLOB Ratio 1.1 RATIO (0.9-2.4); AST(SGOT) 59 U/L (15-37); Alanine Aminotransfer ALT/SGPT 34 U/L (16-61); Albumin, Serum 3.3 g/dL (3.2-5.0); Alkaline Phosphatase 318 U/L (45-117); Anion Gap 10 (5-15); BUN/Creat Ratio 24.3 RATIO (10-20); Calcium,Total 9.3 mg/dL (8.5-10.1); Chloride 107 mmol/L (98-107); EST Glomerular Filtration Rate 32 mL/min (>60); Est Glom Filt Rate - Afr Amer 38 mL/min (>60); Potassium 4.7 mmol/L (3.5-5.1); Protein, Total 6.3 g/dL (6.4-8.2); Sodium Level 134 mmol/L (136-145)
[2022-09-13 15:49] LABS: Differential Comment SCANNED
== END | disposition home or self-care (01) ==
LOC: MFPLAB 12:03
PROVIDERS: PCP Family Medicine; Referring Provider Family Medicine; Visit Provider Family Medicine
DX: K74.60 Unspecified cirrhosis of liver (principal)
CPT/HCPCS: 36415; 80053; 82140; 85025

== ENCOUNTER → 2022-09-18 | Outpatient (CLI) | payer BC, SELFPAY ==
--- NOTE | 2022-09-18 09:13 | US_ITS ---
PROCEDURE: Ultrasound guided paracentesis. DATE OF EXAMINATION: 09/18/2022. INDICATION: Male, 57 years old. Ascites. PHYSICIAN: Hunter Schwarz DO TECHNIQUE: The risks, benefits, and alternatives to the procedure were explained to the patient. The specific risks of bleeding, infection, and damage to bowel were detailed and accepted. Witnessed informed consent was obtained. The abdomen was ultrasonographically surveyed. An appropriate pocket of fluid was identified at the left lower quadrant. The skin were cleaned and prepped in the usual sterile fashion. Using ultrasound guidance, the peritoneal cavity was accessed with a 5-Czech paracentesis needle/catheter system. The trocar was removed. A total of 5200 ml of cloudy blood-tinged red fluid were removed from the peritoneal cavity. The catheter was removed and a sterile dressing was applied. The procedure was well tolerated. The patient was discharged in stable condition. US/Paracentesis with US IMPRESSION: Ultrasound guided therapeutic paracentesis. Electronically Signed: Hunter Schwarz, at 11:40 EST ,
[2022-09-18 09:33] VITALS: BP 105/68; BP 107/46; BP 107/54; PULSE 63; PULSE 64; PULSE 66; RESP 100; RESP 18; O2SAT 100; O2SAT 97; O2SAT 99
[2022-09-18] MEDS: Lidocaine 2% (20 ml mdv) 20 ML Vial INFILT (09:40)
[2022-09-18] MEDS: 0.9% Saline Lock 10 ML Syringe IV ×3 (10:09→12:15)
[2022-09-18] MEDS: Albumin Human 25% (100 mL) 25 GM/100 ML BAG IV (10:34)
[2022-09-18 10:40] VITALS: BP 114/52; PULSE 68; RESP 16; TEMP 36.6; O2SAT 100
[2022-09-18 12:13] VITALS: BP 114/52; PULSE 68; RESP 16; TEMP 36.6; O2SAT 98
== END | disposition home or self-care (01) ==
LOC: US 09:08
PROVIDERS: PCP Family Medicine; Referring Provider Internal Medicine Gastroenterology; Visit Provider Internal Medicine Gastroenterology
DX: K74.60 Unspecified cirrhosis of liver (principal); R18.8 Other ascites
CPT/HCPCS: 96365; 96366; 49083; J7050; P9047; A4216

== ENCOUNTER 2022-09-26 12:00 | Outpatient (CLI) | payer BC, SELFPAY ==
--- NOTE | 2022-09-26 12:01 | US_ITS ---
PROCEDURE: Ultrasound guided paracentesis. DATE OF EXAMINATION: 09/26/2022. INDICATION: Male, 57 years old. Ascites. PHYSICIAN: Tutu Tong M.D. TECHNIQUE: The risks, benefits, and alternatives to the procedure were explained to the patient. The specific risks of bleeding, infection, and damage to bowel were detailed and accepted. Witnessed informed consent was obtained. The abdomen was ultrasonographically surveyed. An appropriate pocket of fluid was identified at the left lower quadrant. The skin were cleaned and prepped in the usual sterile fashion. Using ultrasound guidance, the peritoneal cavity was accessed with a 5-Finnish paracentesis needle/catheter system. The trocar was removed. A total of 5400 ml of blood tinged fluid. were removed from the peritoneal cavity. The catheter was removed and a sterile dressing was applied. The procedure was well tolerated. US/Paracentesis with US IMPRESSION: Ultrasound guided paracentesis. Electronically Signed: Tutu Tong MD at 15:06 EST ,
[2022-09-26 12:52] VITALS: BP 114/60; BP 114/69; BP 115/55; BP 117/47; BP 128/69; PULSE 65; PULSE 66; PULSE 69; PULSE 70; RESP 18; TEMP 36.7; O2SAT 100
[2022-09-26] MEDS: Lidocaine 2% (20 ml mdv) 20 ML Vial INFILT (12:53)
[2022-09-26] MEDS: 0.9% Saline Lock 10 ML Syringe IV (13:32)
[2022-09-26] MEDS: Albumin Human 25% (100 mL) 25 GM/100 ML BAG IV (14:15)
[2022-09-26] MEDS: Albumin Human 25% (50 mL) 12.5 GM/50 ML IV.SOLN IV (15:42)
[2022-09-26 16:39] VITALS: BP 126/48; PULSE 72; O2SAT 100
== END 2022-09-26 23:59 | disposition home or self-care (01) ==
LOC: US 12:00
PROVIDERS: PCP Family Medicine; Referring Provider Internal Medicine Gastroenterology; Visit Provider Internal Medicine Gastroenterology
DX: K74.60 Unspecified cirrhosis of liver (principal); R18.8 Other ascites
CPT/HCPCS: 96365; 96366; 49083; J7050; P9046; P9047; A4216

== ENCOUNTER → 2022-10-03 | Outpatient (CLI) | payer BC, SELFPAY ==
--- NOTE | 2022-10-03 11:36 | US_ITS ---
PROCEDURE: Ultrasound guided paracentesis. DATE OF EXAMINATION: 10/03/2022. INDICATION: Male, 57 years old. Ascites. PHYSICIAN: Tutu Tong M.D. TECHNIQUE: The risks, benefits, and alternatives to the procedure were explained to the patient. The specific risks of bleeding, infection, and damage to bowel were detailed and accepted. Witnessed informed consent was obtained. The abdomen was ultrasonographically surveyed. An appropriate pocket of fluid was identified at the right lower quadrant. The skin were cleaned and prepped in the usual sterile fashion. Using ultrasound guidance, the peritoneal cavity was accessed with a 5-Anguillan paracentesis needle/catheter system. The trocar was removed. A total of 7050 ml of blood tinged miguel-colored fluid were removed from the peritoneal cavity. The catheter was removed and a sterile dressing was applied. The procedure was well tolerated. US/Paracentesis with US IMPRESSION: Ultrasound guided paracentesis. Electronically Signed: Tutu Tong MD at 13:12 EST ,
[2022-10-03] MEDS: Lidocaine 2% (10 ml mdv) 10 ML Vial INFILT (12:13)
[2022-10-03 12:18] VITALS: BP 110/45; BP 114/48; BP 118/44; BP 118/53; PULSE 66; PULSE 67; PULSE 68; RESP 16; RESP 18; TEMP 36.7; O2SAT 100; O2SAT 98; O2SAT 99
[2022-10-03] MEDS: Albumin Human 25% (100 mL) 25 GM/100 ML BAG IV (13:21)
[2022-10-03 15:04] VITALS: BP 120/44; PULSE 73
== END | disposition home or self-care (01) ==
LOC: US 11:33
PROVIDERS: PCP Family Medicine; Referring Provider Internal Medicine Gastroenterology; Visit Provider Internal Medicine Gastroenterology
DX: R18.8 Other ascites (principal)
CPT/HCPCS: 96365; 96366; 49083; J7050; P9046; A4216; P9047

== ENCOUNTER 2022-10-05 01:46 | Emergency (ER) | payer BC, SELFPAY ==
[2022-10-05 01:47] VITALS: BP 120/64; PULSE 71; RESP 15; TEMP 36.2; O2SAT 99; BMI 42.4
[2022-10-05] MEDS: diazePAM 5 MG Tablet PO (02:29)
[2022-10-05] MEDS: Ondansetron 4 MG/2 ML Vial IV (02:30)
[2022-10-05 02:31] LABS: Absolute Lymphocyte Count 0.53 X10^3/uL (0.83-4.51); Absolute Neutrophil Count 8.3 X10^3/uL (2.0-7.7); Basophil# 0.05 X10^3/uL; Basophil% 0.5 % (0-1); Eosinophil# 0.34 X10^3/uL; Eosinophils% 3.1 % (0-5); Hematocrit 32.6 % (40-54); Hemoglobin 11.6 g/dL (13.0-16.5); Lymphocyte # 0.53 X10^3/ul (0.83-4.51); Lymphocyte % 4.9 % (19-41); Mean Corp Hgb Conc 35.6 g/dL (32-36); Mean Corpuscular Hgb 33.5 pg (27.0-32.0); Mean Corpuscular Volume 94.2 fL (80-94); Mean Platelet Vol. 10.5 fl (6.2-12.0); Monocyte# 1.53 X10^3/uL; NRBC Flagged by Analyzer 0 % (0-5); Neutrophil # 8.31 X10^3/uL (2.7-7.7); Neutrophil % 76.3 % (47-70); POSITIVE DIFFERENTIAL YES; Platelet Count 151 K/mm3 (150-450); RBC Distribution Width CV 13.6 % (11.6-14.6); RBC Distribution Width SD 47.3 fl (35.1-43.9); Red Blood Count 3.46 M/mm3 (4.6-6.2); White Blood Count 10.9 K/mm3 (4.4-11.0)
[2022-10-05 02:32] LABS: Differential Indicated SCAN CRITERIA MET
[2022-10-05 02:47] LABS: Differential Comment SCANNED
[2022-10-05 02:53] LABS: AST(SGOT) 71 U/L (15-37); Alanine Aminotransfer ALT/SGPT 39 U/L (16-61); Albumin, Serum 3.1 g/dL (3.2-5.0); Alkaline Phosphatase 354 U/L (45-117); Anion Gap 12 (5-15); BUN 71 mg/dL (7-18); BUN/Creat Ratio 22.8 RATIO (10-20); Calcium,Total 8.9 mg/dL (8.5-10.1); Chloride 96 mmol/L (98-107); Creatinine, Serum 3.12 mg/dL (0.70-1.30); EST Glomerular Filtration Rate 22 mL/min (>60); Est Glom Filt Rate - Afr Amer 26 mL/min (>60); Estimated Creatinine Clearance 23.83 ml/min; Globulin 2.6 g/dL (2.2-4.2); Glucose 119 mg/dL (74-106); Lipase 155 U/L (73-393); Protein, Total 5.7 g/dL (6.4-8.2); Sodium Level 125 mmol/L (136-145)
[2022-10-05] MEDS: 0.9% Normal Saline 1,000 ML 999 ML IV (03:52)
[2022-10-05] MEDS: Ibuprofen 600 MG Tablet PO (04:26)
--- NOTE | 2022-10-05 05:58 | EX.ED.DYSGE1 ---
HPI History of Present Illness Chief Complaint: Nausea/Vomiting Narrative Narrative: Patient is a 57-year-old male with past medical history of cirrhosis and ascites. He states he has been having his ascites drained almost weekly. He reports his last therapeutic paracentesis was yesterday. He reports that today around 3 PM he began with generalized muscle aches and bouts of nausea and vomiting. He states he is not been able to keep much down since that time and secondary to this comes in for evaluation. Patient denies any known sick contact. PFSH PFSH Medical History Alcoholic cirrhosis Congestive heart failure CPAP (continuous positive airway pressure) dependence Former smoker GERD (gastroesophageal reflux disease) GI bleed History of ETOH abuse HLD (hyperlipidemia) HTN (hypertension) Narcolepsy Obstructive sleep apnea Past history of chewing tobacco use Home Medications pantoprazole 40 mg tablet,delayed release 40 mg PO BID gerd 08/02/21 [History Last Taken Unknown] rifaximin 550 mg tablet (Xifaxan) 550 mg PO BID encephalopathy 08/02/21 [History Last Taken Unknown] lactulose 20 gram/30 mL oral solution 40 g (60 mL) PO Q4 30 days #10,800 mL 09/09/22 [Rx Last Taken Unknown] midodrine 5 mg tablet 10 mg PO TIDCM 30 days #180 tabs 09/09/22 [Rx Last Taken Unknown] polyethylene glycol 3350 17 gram oral powder packet 17 g PO BID 30 days #60 ea 09/09/22 [Rx Last Taken Unknown] diazepam 5 mg tablet (Valium) 5 mg PO TID PRN muscle spasm 5 days #15 tabs 10/05/22 [Rx Last Taken Unknown] ondansetron 4 mg disintegrating tablet 4 mg PO TID PRN nausea and vomiting #21 tabs 10/05/22 [Rx Last Taken Unknown] Allergy/AdvReac Type Severity Reaction Status Date / Time shellfish derived Allergy Anaphylaxis Verified 10/05/22 01:50 Family History (Updated 09/04/22 @ 22:[address] Cici Forbes MD) Mother Alzheimer disease Father Heart disease Diabetes Surgical History (Updated 09/04/22 @ 22:[address] Cici Forbes MD) H/O partial resection of colon Social History (Updated 09/04/22 @ 22:[address] Cici Forbes MD) household members: spouse Smoking Status: Never smoker Smokeless tobacco user: chewing tobacco how long ago did patient quit smoking: Former chew tobacco, quit 2.5 years prior, chewed 1 can/day since 18. alcohol intake: former details: Quit 2.5 years prior with EtOH abuse history. substance use type: does not use ROS ROS ED Constitutional Constitutional ED: Denies chills or fever(s) Eyes Eyes: Denies change in vision ENT ENT ED: Denies sore throat Cardiovascular Cardiovascular: Denies chest pain Respiratory/Chest Respiratory/Chest: Denies cough or dyspnea Gastrointestinal Gastrointestinal: Reports nausea and vomiting; Denies abdominal pain or diarrhea Genitourinary Genitourinary ED: Denies dysuria Musculoskeletal Musculoskeletal: Reports myalgias Integumentary Denies rash Neurologic Neurologic: Denies headache(s) Hematologic/Lymphatic Hematologic/Lymphatic: Reports easy bleeding and easy bruising EXAM Physical Exam Const Vital Signs: 10/05/22 01:47 Temperature 97.2 F L Temperature Source Temporal Pulse Rate 71 Respiratory Rate 15 Blood Pressure 120/64 Blood Pressure Mean 82 Pulse Ox 99 Oxygen Delivery Method Room Air Positive well nourished, well developed and obese General Appearance ED: well developed Nutritional Appearance: obese HEENT Reports dry mucous membranes Mouth ED: Yes dry mucous membranes Mouth: dry mucous membranes Eyes PERRL and EOMs intact bilaterally Eyes Narrative: Slight scleral icterus noted Neck supple and no JVD Resp normal respiratory effort and clear to auscultation bilaterally Resp Narrative: No nasal flaring retractions tachypnea or accessory muscle use Cardio regular rate and regular rhythm GI non-tender GI Narrative: Abdomen is soft nontender with hyperactive bowel sounds. There is slight fluid wave noted. No voluntary guarding or rigidity no pulsatile mass. Auscultation: hyperactive bowel sounds Palpation: soft Extremity Extremity Narrative: Trace pitting edema to the bilateral lower extremities that is equal and symmetric with negative Homans' sign Neuro oriented x3 and CN's II-XII intact bilaterally Sensorium / Orientation: alert Psych Psych Narrative: Patient has a nervous/anxious affect Skin Skin Narrative: Faint jaundice is noted with slight elevation to his skin turgor MDM MDM MDM Narrative Medical decision making narrative: Patient presented to the ER with stable vitals and a abdominal exam does not suggest spontaneous bacterial peritonitis. Symptoms are most consistent with viral infection but as exam does show changes for dehydration basic blood work was obtained. Patient's sodium is decreased at 125 which is down from baseline of 132. Carbon dioxide is also low at 17 but this is chronic in nature. Patient's baseline creatinine is typically 2.2 and he is slightly elevated at 3.1. His ammonia is elevated at 76 but chart review reveals this is also his baseline and therefore he does not have acute hepatic encephalopathy. At this time based on the physical exam and labs indicating dehydration he was given 1.5 L of normal saline. Zofran was provided as well as oral Valium secondary to his report of muscle aches. After IV hydration and treatment with Zofran and Valium patient had no bouts of vomiting he was able to swallow water without any further bouts of emesis and he reported improvement of his muscle aches. Therefore at this time as he has been rehydrated and is tolerating oral secretions I do not feel there is need for admission based on his elevated kidney function. He can continue to hydrate at home and have his labs checked on an outpatient basis and if they are worsening or he cannot tolerate fluids at home he can return for repeat evaluation. Plan of care was discussed with the patient and he is agreeable to it Lab Data Attestation: I reviewed the patient's lab results. Labs: Laboratory Results - last 24 hr 10/05/22 10/05/22 10/05/22 02:00 02:00 02:00 WBC 10.9 RBC 3.46 L Hgb 11.6 L Hct 32.6 L MCV 94.2 H MCH 33.5 H MCHC 35.6 RDW Std Deviation 47.3 H RDW Coeff of Olvin 13.6 Plt Count 151 MPV 10.5 Immature Gran % (Auto) 1.200 H Neut % (Auto) 76.3 H Lymph % (Auto) 4.9 L [place] % (Auto) 14.0 H Eos % (Auto) 3.1 Baso % (Auto) 0.5 Absolute Neuts (auto) 8.3 H Absolute Lymphs (auto) 0.53 L Nucleated RBC % 0 Differential Comment SCANNED Sodium 125 L Potassium 5.0 Chloride 96 L Carbon Dioxide 17.0 L Anion Gap 12 BUN 71 H Creatinine 3.12 H Estim Creat Clear Calc 23.83 Est GFR (MDRD) Af Amer 26 L Est GFR (MDRD) Non-Af 22 L BUN/Creatinine Ratio 22.8 H Glucose 119 H Calcium 8.9 Magnesium 3.0 H Total Bilirubin 3.70 H Direct Bilirubin 1.90 H AST 71 H ALT 39 Alkaline Phosphatase 354 H Ammonia 76.0 H Total Protein 5.7 L Albumin 3.1 L Globulin 2.6 Lipase 155 Discharge Plan Triage Chief Complaint: Nausea/Vomiting ED Provider: Vitaliy Vallejo Dx/Rx/DC Orders Clinical Impression: Dehydration, Nausea & vomiting, Acute on chronic renal insufficiency, Muscle spasm, Hyponatremia Instructions: Dehydration, ED Gastroenteritis, Viral (Adult) Prescriptions: New ondansetron 4 mg tablet,disintegrating 4 mg PO TID PRN (Reason: nausea and vomiting) Qty: 21 0RF diazepam [Valium] 5 mg tablet 5 mg PO TID PRN (Reason: muscle spasm) 5 Days Qty: 15 0RF No Action pantoprazole 40 mg tablet,delayed release (DR/EC) 40 mg PO BID Xifaxan 550 mg tablet 550 mg PO BID Label Comments: TAKE 1 TABLET BY MOUTH TWO TIMES A DAY polyethylene glycol 3350 17 gram Powder In Packet 17 g PO BID 30 Days Qty: 60 0RF midodrine 5 mg Tablet 10 mg PO TIDCM 30 Days Qty: 180 0RF lactulose 20 gram/30 mL Solution 40 g PO Q4 30 Days Qty: 21662 0RF Primary Care Provider: Jake Fraser Referrals: Jake Fraser MD [Primary Care Provider] - Activity Restrictions/Additional Instructions: Keep yourself hydrated and continue your medication as previously directed. If you have any further concerns or worsening of symptoms despite treatment please return for repeat evaluation Disposition Disposition: Home, Self Care
[2022-10-05 06:11] VITALS: BP 99/54; PULSE 70; RESP 20; O2SAT 100
== END 2022-10-05 06:18 | disposition home or self-care (01) ==
PROVIDERS: Emergency Provider Emergency Medicine; PCP Family Medicine; Visit Provider Emergency Medicine
DX: R11.2 Nausea with vomiting, unspecified (principal); N17.9 Acute kidney failure, unspecified; K74.60 Unspecified cirrhosis of liver; I13.0 Hypertensive heart and chronic kidney disease with heart failure and stage 1 through stage 4 chronic kidney disease, or unspecified chronic kidney disease; I50.9 Heart failure, unspecified; E86.0 Dehydration; Z87.891 Personal history of nicotine dependence; E87.1 Hypo-osmolality and hyponatremia; E78.5 Hyperlipidemia, unspecified; M62.838 Other muscle spasm; R18.8 Other ascites; E66.9 Obesity, unspecified; N18.9 Chronic kidney disease, unspecified
CPT/HCPCS: 80048; 80076; 82140; 83690; 83735; 85025; 96361; 96374; 99282; J7030; J7040; A4216; J2405

== ENCOUNTER 2022-10-05 17:29 | Inpatient (IN) | payer BC, SELFPAY ==
[2022-10-05 17:30] VITALS: BP 140/58; PULSE 69; RESP 16; TEMP 36.8; O2SAT 100; BMI 37.1
--- NOTE | 2022-10-05 18:10 | EX.ED.DYSGE1 ---
HPI History of Present Illness Chief Complaint: Abn Labs Narrative Narrative: 57-year-old male with history of cirrhosis, ascites presenting reporting that he was sent by Dr. Angulo. He had blood work done this morning at [facility] when he presented for body aches and nausea and vomiting.. He followed up with Dr. Angulo and it was noted that he has worsening renal function. He states that because his potassium high he was told he would need Kayexalate. He was also told he will need to be admitted for nephrology consult. He does not know specifically what other labs he was sent for. PFSH PFSH Medical History Congestive heart failure CPAP (continuous positive airway pressure) dependence Former smoker GERD (gastroesophageal reflux disease) GI bleed History of ETOH abuse HLD (hyperlipidemia) HTN (hypertension) Narcolepsy Obstructive sleep apnea Past history of chewing tobacco use Home Medications pantoprazole 40 mg tablet,delayed release 40 mg PO BID gerd 08/02/21 [History Last Taken 10/05/22] rifaximin 550 mg tablet (Xifaxan) 550 mg PO BID encephalopathy 08/02/21 [History Last Taken 10/05/22] lactulose 20 gram/30 mL oral solution 40 g (60 mL) PO Q4 30 days #10,800 mL 09/09/22 [Rx Last Taken Unknown] diazepam 5 mg tablet (Valium) 5 mg PO TID PRN muscle spasm 5 days #15 tabs 10/05/22 [Rx Last Taken 10/04/22] lactulose 10 gram/15 mL oral solution 40 ml PO Q4H 10/05/22 [History Last Taken 10/05/22] midodrine 5 mg tablet 10 mg PO TIDCM 30 days #180 tabs 10/05/22 [Rx Last Taken 10/05/22] mirtazapine 15 mg tablet 7.5 mg PO QHS #30 tabs 10/05/22 [Rx Last Taken Unknown] ondansetron 4 mg disintegrating tablet 4 mg PO TID PRN nausea and vomiting #21 tabs 10/05/22 [Rx Last Taken 10/05/22] polyethylene glycol 3350 17 gram oral powder packet 17 g PO BID STOOL 10/05/22 [History Last Taken 10/05/22] Allergy/AdvReac Type Severity Reaction Status Date / Time shellfish derived Allergy Anaphylaxis Verified 10/05/22 17:29 Family History Mother Alzheimer disease Father Heart disease Diabetes Surgical History H/O partial resection of colon Social History household members: spouse Smoking Status: Never smoker Smokeless tobacco user: chewing tobacco how long ago did patient quit smoking: Former chew tobacco, quit 2.5 years prior, chewed 1 can/day since 18. alcohol intake: former details: Quit 2.5 years prior with EtOH abuse history. substance use type: does not use ROS ROS ED Constitutional Constitutional ED: Denies chills or fever(s) Eyes Eyes: Denies change in vision ENT ENT ED: Denies rhinorrhea or sore throat Cardiovascular Cardiovascular: Denies chest pain Gastrointestinal Gastrointestinal: Reports nausea and vomiting; Denies abdominal pain Genitourinary Genitourinary ED: Denies dysuria or hematuria Musculoskeletal Musculoskeletal: Reports myalgias; Denies arthralgias Integumentary Denies abscess Neurologic Neurologic: Denies headache(s) Psychiatric Psychiatric: Denies anxiety or depression EXAM Physical Exam Const Vital Signs: 10/05/22 17:30 10/05/22 17:37 10/05/22 20:36 Temperature 98.2 F Temperature Source Temporal Pulse Rate 69 72 Respiratory Rate 16 19 H Respiratory Effort Normal Non-Labored Respiratory Pattern Normal Blood Pressure 140/58 H 125/50 H Blood Pressure Mean 85 75 Pulse Ox 100 96 Oxygen Delivery Method Room Air Room Air MDM MDM MDM Narrative Medical decision making narrative: Patient presenting for the second time today. He was seen earlier in the day and had some worsening renal failure and hyperkalemia and hypokalemia. He was given 1.5 L of normal saline at that time. Ultimately he was discharged. He followed up with Dr. Angulo today who had concerned about the hyperkalemia. His potassium has improved after hydration earlier today. CBC shows no elevation in his white blood cell count. Hemoglobin stable. Platelets 173. Creatinine is actually increased from earlier. Sodium still low at 126. His BUN is elevated at 75. LFTs near baseline. Vital signs are stable and he is afebrile. I discussed the case with Dr. Angulo and he specifically states that he sent him in because with his hepatic encephalopathy the lactulose would not work if his BUN is this elevated. He expressed concern for hepatorenal syndrome. He feels the patient needs to be admitted for nephrology consult to optimize his renal function and decrease his BUN to the lactulose is effective. Patient discussed with hospitalist for admission. Impression: 1. Hyponatremia 2. Acute on chronic kidney disease 3. History of cirrhosis 4. History of hepatic encephalopathy Lab Data Attestation: I reviewed the patient's lab results. Labs: Laboratory Results - last 24 hr 10/05/22 10/05/22 17:45 17:45 WBC 10.0 RBC 3.63 L Hgb 12.1 L Hct 34.6 L MCV 95.3 H MCH 33.3 H MCHC 35.0 RDW Std Deviation 48.4 H RDW Coeff of Olvin 14.0 Plt Count 173 MPV 10.9 Immature Gran % (Auto) 1.300 H Neut % (Auto) 72.9 H Lymph % (Auto) 5.5 L [place] % (Auto) 15.9 H Eos % (Auto) 3.7 Baso % (Auto) 0.7 Absolute Neuts (auto) 7.3 Absolute Lymphs (auto) 0.55 L Nucleated RBC % 0 Differential Comment SEE COMMENTS Platelet Estimate ADEQUATE RBC Morphology N CHROM Anisocytosis 1+ Macrocytosis 1+ Sodium 126 L Potassium 4.9 Chloride 98 Carbon Dioxide 17.0 L Anion Gap 11 BUN 75 H Creatinine 3.43 H Estim Creat Clear Calc 23.94 Est GFR (MDRD) Af Amer 24 L Est GFR (MDRD) Non-Af 20 L BUN/Creatinine Ratio 21.9 H Glucose 109 H Calcium 9.1 Total Bilirubin 4.20 H Direct Bilirubin 2.20 H AST 68 H ALT 40 Alkaline Phosphatase 345 H Total Protein 5.7 L Albumin 3.0 L Globulin 2.7 Lipase 159 Discharge Plan Triage Chief Complaint: Abn Labs ED Provider: Dick Woodruff Dx/Rx/DC Orders Prescriptions: No Action midodrine 5 mg tablet 10 mg PO TIDCM 30 Days Qty: 180 3RF mirtazapine 15 mg tablet 7.5 mg PO QHS Qty: 30 2RF pantoprazole 40 mg tablet,delayed release (DR/EC) 40 mg PO BID Xifaxan 550 mg tablet 550 mg PO BID lactulose 20 gram/30 mL Solution 40 g PO Q4 30 Days Qty: 31501 0RF ondansetron 4 mg tablet,disintegrating 4 mg PO TID PRN (Reason: nausea and vomiting) Qty: 21 0RF diazepam [Valium] 5 mg tablet 5 mg PO TID PRN (Reason: muscle spasm) 5 Days Qty: 15 0RF lactulose 10 gram/15 mL solution 40 ml PO Q4H polyethylene glycol 3350 17 gram powder in packet 17 g PO BID Primary Care Provider: Jake Fraser Referrals: Jake Fraser MD [Primary Care Provider] -
--- NOTE | 2022-10-05 18:13 | EKG12_ITS ---
Test Reason : ABNORML LABS Blood Pressure : / mmHG Vent. Rate : 062 BPM Atrial Rate : 062 BPM P-R Int : 156 ms QRS Dur : 138 ms QT Int : 474 ms P-R-T Axes : 067 -33 028 degrees QTc Int : 481 ms Normal sinus rhythm Left axis deviation Right bundle branch block Abnormal ECG Confirmed by ALEYDA ZARAGOZA, EDMUND ([id number]), restaurant expeditor SHEELA LOMBARDI ([id number]) on 10/09/2022 11:07:47 AM Referred By: Confirmed By:ELI MAYNARD MD
[2022-10-05 18:20] LABS: Absolute Lymphocyte Count 0.55 X10^3/uL (0.83-4.51); Absolute Neutrophil Count 7.3 X10^3/uL (2.0-7.7); Basophil# 0.07 X10^3/uL; Basophil% 0.7 % (0-1); Eosinophil# 0.37 X10^3/uL; Eosinophils% 3.7 % (0-5); Hematocrit 34.6 % (40-54); Hemoglobin 12.1 g/dL (13.0-16.5); Lymphocyte # 0.55 X10^3/ul (0.83-4.51); Lymphocyte % 5.5 % (19-41); Mean Corpuscular Hgb 33.3 pg (27.0-32.0); Mean Corpuscular Volume 95.3 fL (80-94); Mean Platelet Vol. 10.9 fl (6.2-12.0); Monocyte# 1.59 X10^3/uL; Monocyte% 15.9 % (0-10); NRBC Flagged by Analyzer 0 % (0-5); Neutrophil # 7.29 X10^3/uL (2.7-7.7); Neutrophil % 72.9 % (47-70); POSITIVE DIFFERENTIAL YES; Platelet Count 173 K/mm3 (150-450); RBC Distribution Width SD 48.4 fl (35.1-43.9); Red Blood Count 3.63 M/mm3 (4.6-6.2)
[2022-10-05 18:27] LABS: Differential Indicated SCAN CRITERIA MET
[2022-10-05 18:41] LABS: AST(SGOT) 68 U/L (15-37); Alanine Aminotransfer ALT/SGPT 40 U/L (16-61); Alkaline Phosphatase 345 U/L (45-117); Anion Gap 11 (5-15); BUN 75 mg/dL (7-18); BUN/Creat Ratio 21.9 RATIO (10-20); Calcium,Total 9.1 mg/dL (8.5-10.1); Chloride 98 mmol/L (98-107); Creatinine, Serum 3.43 mg/dL (0.70-1.30); EST Glomerular Filtration Rate 20 mL/min (>60); Est Glom Filt Rate - Afr Amer 24 mL/min (>60); Estimated Creatinine Clearance 23.94 ml/min; Globulin 2.7 g/dL (2.2-4.2); Glucose 109 mg/dL (74-106); Lipase 159 U/L (73-393); Potassium 4.9 mmol/L (3.5-5.1); Protein, Total 5.7 g/dL (6.4-8.2); Sodium Level 126 mmol/L (136-145)
[2022-10-05 18:47] LABS: Anisocytosis 1+; Differential Comment SEE COMMENTS; Macrocytosis 1+; Platelet Estimate ADEQUATE (ADEQ); Red Cell Morphology N CHROM NORMAL (NORM C&C)
[2022-10-05 20:36] VITALS: BP 125/50; PULSE 72; RESP 19; O2SAT 96
--- NOTE | 2022-10-05 22:36 | PCM.HP.STD ---
HPI - General General Date of Admission: 10/05/22 Date of Service: 10/05/22 Chief Complaint: Abnormal lab HPI Narrative ORTIZ TOVAR, is a 57 M with a significant history of liver cirrhosis and hepatic encephalopathy who was sent by his GI doctor, Dr. Angulo because of abnormal labs of elevated BUN and creatinine. Of note this is patient's second visit to the emergency department on the same day. On the first visit he complained of body aches/cramps and nausea. He was found to have MARILYN. He was hydrated. He was given a prescription for diazepam for body aches/cramps and he was discharged. He went to see his rugby union footballer, Dr. Angulo on the same day as above. Because of elevated BUN rugby union footballer was concerned that patient's lactulose may not be working optimally for his hepatic encephalopathy. And also because patient has been optimized for possible liver transplantation his gastroenterology wanted patient be admitted and possibly see a director of vendor management. Patient reports he has an appointment in October to see Dr. Inman, director of vendor management. However patient is hoping to see director of vendor management earlier than that. PFSH Medical History Congestive heart failure CPAP (continuous positive airway pressure) dependence Former smoker GERD (gastroesophageal reflux disease) GI bleed History of ETOH abuse HLD (hyperlipidemia) HTN (hypertension) Narcolepsy Obstructive sleep apnea Past history of chewing tobacco use Home Medications pantoprazole 40 mg tablet,delayed release 40 mg PO BID gerd 08/02/21 [History Last Taken 10/05/22] rifaximin 550 mg tablet (Xifaxan) 550 mg PO BID encephalopathy 08/02/21 [History Last Taken 10/05/22] diazepam 5 mg tablet (Valium) 5 mg PO TID PRN muscle spasm 5 days #15 tabs 10/05/22 [Rx Last Taken 10/04/22] lactulose 10 gram/15 mL oral solution 40 ml PO Q4H 10/05/22 [History Last Taken 10/05/22] midodrine 5 mg tablet 10 mg PO TIDCM 30 days #180 tabs 10/05/22 [Rx Last Taken 10/05/22] mirtazapine 15 mg tablet 7.5 mg PO QHS #30 tabs 10/05/22 [Rx Last Taken Unknown] ondansetron 4 mg disintegrating tablet 4 mg PO TID PRN nausea and vomiting #21 tabs 10/05/22 [Rx Last Taken 10/05/22] polyethylene glycol 3350 17 gram oral powder packet 17 g PO BID STOOL 10/05/22 [History Last Taken 10/05/22] Allergy/AdvReac Type Severity Reaction Status Date / Time shellfish derived Allergy Anaphylaxis Verified 10/05/22 17:29 Family History Mother Alzheimer disease Father Heart disease Diabetes Surgical History H/O partial resection of colon Social History household members: spouse Smoking Status: Never smoker Smokeless tobacco user: chewing tobacco how long ago did patient quit smoking: Former chew tobacco, quit 2.5 years prior, chewed 1 can/day since 18. alcohol intake: former details: Quit 2.5 years prior with EtOH abuse history. substance use type: does not use ROS ROS Narrative Pertinent positives and pertinent negatives as noted in HPI. All other systems were reviewed and are negative Vital Signs Vital Signs Vital Signs: 10/05/22 17:30 10/05/22 17:37 10/05/22 20:36 Temperature 98.2 F Temperature Source Temporal Pulse Rate 69 72 Respiratory Rate 16 19 H Respiratory Effort Normal Non-Labored Respiratory Pattern Normal Blood Pressure 140/58 H 125/50 H Blood Pressure Mean 85 75 Pulse Ox 100 96 Oxygen Delivery Method Room Air Room Air Weight Weight: 117.48 kg Body Mass Index (BMI) 37.1 Physical Exam Narrative Physical exam: General: Well-nourished, well-developed. Head: Normocephalic, atraumatic, no tenderness Eyes: Vision is grossly intact. EOMI ENT, no trauma, moist mucous membranes, no rhinorrhea Neck: Nontender, No thyromegaly. CVS: Regular rate and rhythm. S1-S2 present. No murmur, gallop or rub. Respiratory : clear to auscultation bilaterally, chest wall nontender, no wheezing Abdomen: Soft, nontender, nondistended, normal bowel sounds, no masses : Deferred Back: Nontender, no CVA tenderness, no midline spinal tenderness, deformities, step-offs Extremities: Nontender full range of motion, no trauma. 1+ bilateral lower extremity edema Skin: Normal color, no trauma, abrasions Neuro: Alert, oriented, cranial nerves II through XII grossly intact. Psychiatry: Normal mood. Normal affect. Not depressed. Not anxious. Results Lab / Micro Data Result Diagrams: 10/05/22 17:45 10/05/22 17:45 Labs: Laboratory Results - last 24 hr 10/05/22 17:45: WBC 10.0, RBC 3.63 L, Hgb 12.1 L, Hct 34.6 L, MCV 95.3 H, MCH 33.3 H, MCHC 35.0, RDW Std Deviation 48.4 H, RDW Coeff of Olvin 14.0, Plt Count 173, MPV 10.9, Immature Gran % (Auto) 1.300 H, Neut % (Auto) 72.9 H, Lymph % (Auto) 5.5 L, [place] % (Auto) 15.9 H, Eos % (Auto) 3.7, Baso % (Auto) 0.7, Absolute Neuts (auto) 7.3, Absolute Lymphs (auto) 0.55 L, Nucleated RBC % 0, Differential Comment SEE COMMENTS, Platelet Estimate ADEQUATE, RBC Morphology N CHROM, Anisocytosis 1+, Macrocytosis 1+ 10/05/22 17:45: Sodium 126 L, Potassium 4.9, Chloride 98, Carbon Dioxide 17.0 L, Anion Gap 11, BUN 75 H, Creatinine 3.43 H, Estim Creat Clear Calc 23.94, Est GFR (MDRD) Af Amer 24 L, Est GFR (MDRD) Non-Af 20 L, BUN/Creatinine Ratio 21.9 H, Glucose 109 H, Calcium 9.1, Total Bilirubin 4.20 H, Direct Bilirubin 2.20 H, AST 68 H, ALT 40, Alkaline Phosphatase 345 H, Total Protein 5.7 L, Albumin 3.0 L, Globulin 2.7, Lipase 159 Assessment & Plan Assessment/Plan (1) Hepatorenal syndrome: (2) Muscle spasm: (3) Hyponatremia: (4) MARILYN (acute kidney injury): PLAN: Plan MARILYN likely secondary to hepatorenal syndrome His creatinine on presentation was 3.43. His creatinine in July 2022 and previously was at most 1. Patient was recently at a hospital from 09/04/2022 to 09/09/2022. He was seen by director of vendor management, Dr. Jaramillo at that time. Patient received octreotide, midodrine and albumin. Patient report that with higher doses of albumin he becomes very nauseated and cannot eat any protein. Albumin 12.5 every 6 hours ordered for 4 biotics. Midodrine continued. Octreotide ordered. Patient report that he was plans to see Dr. Inman, director of vendor management outpatient in October and hoping to get an early appointment. Consult to Dr. Inman director of vendor management. Avoid nephrotoxic's. Trend BMP. Hyponatremia Sodium of 126. Received normal saline on 10/05/2022. We will avoid IV hydration as patient gets routine paracentesis. Last paracentesis was on 10/03/2022. Trend BMP Hepatic encephalopathy Stable. Lactulose and Xifaxan continued. Muscle spasms New problem. Labs upon continued. DVT prophylaxis: Subcutaneous Lovenox ordered. Charges/Coding Visit Charges Inpatient E&M: 34067 Init Hosp L3
[2022-10-05 23:20] VITALS: BP 113/55; PULSE 74; RESP 22; TEMP 36.8; O2SAT 97
[2022-10-06 00:23] VITALS: BMI 38.7
[2022-10-06 00:36] VITALS: BP 118/68; PULSE 76; RESP 16; TEMP 36.6; O2SAT 97
[2022-10-06] MEDS: Ondansetron 4 MG/2 ML Vial IV ×3 (02:08→19:01)
[2022-10-06] MEDS: 0.9% Saline Lock 10 ML Syringe IV ×6 (02:09→19:02)
[2022-10-06] MEDS: Albumin Human 25% (50 mL) 12.5 GM/50 ML IV.SOLN IV ×4 (02:16→17:46)
[2022-10-06] MEDS: diazePAM 5 MG Tablet PO ×2 (02:26→19:01)
[2022-10-06] MEDS: Lactulose 20 GM/30 ML UDC 26.66667 GM PO ×5 (02:27→17:46)
[2022-10-06 04:10] VITALS: BP 118/68; PULSE 76; RESP 16; TEMP 36.6; O2SAT 97
[2022-10-06 06:00] VITALS: BP 95/41; PULSE 70; RESP 16; TEMP 36.6; O2SAT 100
[2022-10-06 07:05] LABS: Absolute Lymphocyte Count 0.48 X10^3/uL (0.83-4.51); Absolute Neutrophil Count 5.6 X10^3/uL (2.0-7.7); Basophil# 0.08 X10^3/uL; Eosinophil# 0.36 X10^3/uL; Eosinophils% 4.6 % (0-5); Hematocrit 31.1 % (40-54); Hemoglobin 10.9 g/dL (13.0-16.5); Lymphocyte # 0.48 X10^3/ul (0.83-4.51); Lymphocyte % 6.1 % (19-41); Mean Corpuscular Hgb 33.3 pg (27.0-32.0); Mean Corpuscular Volume 95.1 fL (80-94); Mean Platelet Vol. 10.6 fl (6.2-12.0); Monocyte# 1.28 X10^3/uL; Monocyte% 16.2 % (0-10); NRBC Flagged by Analyzer 0 % (0-5); Neutrophil # 5.57 X10^3/uL (2.7-7.7); Neutrophil % 70.7 % (47-70); POSITIVE DIFFERENTIAL YES; Platelet Count 140 K/mm3 (150-450); RBC Distribution Width SD 48.5 fl (35.1-43.9); Red Blood Count 3.27 M/mm3 (4.6-6.2); White Blood Count 7.9 K/mm3 (4.4-11.0)
[2022-10-06] MEDS: Octreotide 0.1 MG/ML ML SC ×3 (07:10→20:24)
[2022-10-06 07:20] LABS: Differential Indicated SCAN CRITERIA MET
[2022-10-06 07:35] LABS: ALB/GLOB Ratio 1.2 RATIO (0.9-2.4); AST(SGOT) 57 U/L (15-37); Alanine Aminotransfer ALT/SGPT 33 U/L (16-61); Albumin, Serum 2.7 g/dL (3.2-5.0); Alkaline Phosphatase 283 U/L (45-117); Anion Gap 12 (5-15); BUN 75 mg/dL (7-18); BUN/Creat Ratio 21.4 RATIO (10-20); Calcium,Total 8.6 mg/dL (8.5-10.1); Chloride 98 mmol/L (98-107); EST Glomerular Filtration Rate 19 mL/min (>60); Est Glom Filt Rate - Afr Amer 23 mL/min (>60); Estimated Creatinine Clearance 23.46 ml/min; Globulin 2.3 g/dL (2.2-4.2); Glucose 95 mg/dL (74-106); Potassium 4.9 mmol/L (3.5-5.1); Sodium Level 125 mmol/L (136-145)
--- NOTE | 2022-10-06 09:44 | PCM.PN.HOSP ---
Subjective Subjective Doing well, no issues overnight. Objective Data Objective Data Vital Signs: Vital Signs Temp Pulse Resp BP Pulse Ox O2 Del Method 97.9 F 70 16 95/41 L 100 Room Air 10/06/22 06:00 10/06/22 06:00 10/06/22 06:00 10/06/22 06:00 10/06/22 06:00 10/06/22 06:00 Oxygen Delivery Method Room Air Weight: 270 lb 2.824 oz Body Mass Index (BMI) 38.7 Intake & Output: Intake and Output for Last 24 Hours 10/05/22 10/06/22 10/07/22 03:59 03:59 03:59 Intake Total 50 / 50 50 / 50 Balance 50 / 50 50 / 50 Lab / Micro Data Result Diagrams: 10/06/22 06:48 10/06/22 06:48 Labs: Laboratory Results - last 24 hr 10/05/22 17:45: WBC 10.0, RBC 3.63 L, Hgb 12.1 L, Hct 34.6 L, MCV 95.3 H, MCH 33.3 H, MCHC 35.0, RDW Std Deviation 48.4 H, RDW Coeff of Olvin 14.0, Plt Count 173, MPV 10.9, Immature Gran % (Auto) 1.300 H, Neut % (Auto) 72.9 H, Lymph % (Auto) 5.5 L, [place] % (Auto) 15.9 H, Eos % (Auto) 3.7, Baso % (Auto) 0.7, Absolute Neuts (auto) 7.3, Absolute Lymphs (auto) 0.55 L, Nucleated RBC % 0, Differential Comment SEE COMMENTS, Platelet Estimate ADEQUATE, RBC Morphology N CHROM, Anisocytosis 1+, Macrocytosis 1+ 10/05/22 17:45: Sodium 126 L, Potassium 4.9, Chloride 98, Carbon Dioxide 17.0 L, Anion Gap 11, BUN 75 H, Creatinine 3.43 H, Estim Creat Clear Calc 23.94, Est GFR (MDRD) Af Amer 24 L, Est GFR (MDRD) Non-Af 20 L, BUN/Creatinine Ratio 21.9 H, Glucose 109 H, Calcium 9.1, Total Bilirubin 4.20 H, Direct Bilirubin 2.20 H, AST 68 H, ALT 40, Alkaline Phosphatase 345 H, Total Protein 5.7 L, Albumin 3.0 L, Globulin 2.7, Lipase 159 10/06/22 06:48: Ammonia 73.0 H 10/06/22 06:48: WBC 7.9, RBC 3.27 L, Hgb 10.9 L, Hct 31.1 L, MCV 95.1 H, MCH 33.3 H, MCHC 35.0, RDW Std Deviation 48.5 H, RDW Coeff of Olvin 14.0, Plt Count 140 L, MPV 10.6, Immature Gran % (Auto) 1.400 H, Neut % (Auto) 70.7 H, Lymph % (Auto) 6.1 L, [place] % (Auto) 16.2 H, Eos % (Auto) 4.6, Baso % (Auto) 1.0, Absolute Neuts (auto) 5.6, Absolute Lymphs (auto) 0.48 L, Nucleated RBC % 0 10/06/22 06:48: Sodium 125 L, Potassium 4.9, Chloride 98, Carbon Dioxide 15.0 L, Anion Gap 12, BUN 75 H, Creatinine 3.50 H, Estim Creat Clear Calc 23.46, Est GFR (MDRD) Af Amer 23 L, Est GFR (MDRD) Non-Af 19 L, BUN/Creatinine Ratio 21.4 H, Glucose 95, Calcium 8.6, Total Bilirubin 4.20 H, AST 57 H, ALT 33, Alkaline Phosphatase 283 H, Total Protein 5.0 L, Albumin 2.7 L, Globulin 2.3, Albumin/Globulin Ratio 1.2 Physical Exam Narrative General: Alert, Oriented x3, Cooperative, No apparent distress HEENT: Atraumatic, PERRLA, EOMI, Normocephalic Oral: Moist Mucosa Neck: Supple, No JVD Lungs: Clear to auscultation, Normal air movement, No rhonchi, No wheeze, No rales Cardiovascular: Regular rate, Regular Rhythm, Normal S1, Normal S2, No murmurs Abdomen: Soft, Non Tender, distended, No Hepato-splenomegaly Extremities: No edema, Capillary Refill Less than 3 Seconds Skin: No rashes, No breakdown Musculoskeletal: No Tenderness to Palpation of Joints or Extremities Neurological: Cranial nerves II-XII grossly intact, Motor Exam 5/5 strength throughout, Sensory exam intact to light touch and pain Psych/Mental Status: Normal Affect, Appropriate Assessment & Plan Assessment/Plan (1) Hepatorenal syndrome: (2) Muscle spasm: (3) Hyponatremia: (4) MARILYN (acute kidney injury): PLAN: Plan 1. MARILYN secondary to possible hepatorenal syndrome/hepatic encephalopathy due to cirrhosis from alcohol with ascites ? His encephalopathy appears to be resolved, continue with lactulose and Xifaxan ? Renal function and creased to 3.5 will await evaluation by nephrology, he has received several doses of albumin ? Continue with midodrine and octreotide ? Continue with twice daily PPI ? He states that he receives a several liter paracentesis every Saturday and he is currently being evaluated for transplant, he says that he has an identical twin who would be able to do a live donor DVT: Joaquin Charges/Coding Visit Charges Inpatient E&M: 81928 Subs Hosp L2
[2022-10-06 10:03] VITALS: BP 92/44; PULSE 71; RESP 18; TEMP 36.6; O2SAT 100
[2022-10-06] MEDS: rifAXIMin 550 MG Tablet PO ×2 (10:10→20:22)
[2022-10-06] MEDS: Pantoprazole Sodium 40 MG Tablet PO ×2 (10:11→20:23)
[2022-10-06] MEDS: Enoxaparin 30 MG/0.3 ML Syringe SC (10:11)
[2022-10-06] MEDS: Polyethylene Glycol 3350 17 GM PACKET PO (10:11)
[2022-10-06] MEDS: Midodrine HCl 5 MG Tablet 10 MG PO ×3 (10:11→17:46)
--- NOTE | 2022-10-06 11:50 | PCM.CONS.R ---
Assessment & Plan Assessment/Plan (1) MARILYN (acute kidney injury): PLAN: creatinine 0.86 in April progressed to 1.07-1.6 in July, 2.0-2.2 in August, 3.32 on admission to 3.5 today likely due to hepatorenal syndrome, prerenal event from poor oral intake for the past several days, anorexia, large volume paracentesis weekly. I did discuss with the patient and patient's spouse on the phone he may require dialysis if his renal function continues to decline with medical therapy. He has decompensated cirrhosis with ascites, splenomegaly, esophageal and splenic varices. He requires weekly paracentesis which would exacerbate his hepatorenal syndrome and renal failure. Currently he is not on diuretics due to his decline in renal function. He denied NSAID use. He is under evaluation for a living related transplant from his twin brother at [facility]. Remains on fluid restriction for hyponatremia. Poor appetite with nausea. Denies abdominal pain. Continue antibiotics for SBP prophylaxis. Check spot urine sodium and urine osmolarity. Consider cautious use of IV fluids if creatinine rises. Maintain systolic blood pressure greater than 90 with midodrine for renal perfusion. Avoid nephrotoxins like IV contrast, NSAIDs. Renal dose medications as needed. (2) Hepatorenal syndrome: PLAN: With decline in renal function. Discussed dialysis if renal function continues to decline. He will need tunneled catheter placed with placement to dialysis facility prior to discharge if dialysis needs to be initiated during current hospitalization (3) Alcoholic cirrhosis: PLAN: Follow-up with GI and [facility] for LRD liver transplant (4) Hyponatremia: PLAN: Likely due to volume expansion from hepatorenal syndrome, ascites. May need to initiate Lasix with IV albumin infusion. Albumin low at 2.7. Watch for seizure disorder. (5) Encephalopathy: PLAN: Ammonia level 73 continue lactulose and Xifaxan (6) Ascites: PLAN: Weekly paracentesis per GI management (7) Splenomegaly: (8) Metabolic acidosis: PLAN: due to liver and renal failure. Replace bicarb HPI Consult Data Date of Consult: 10/07/22 HPI Narrative Reason for Consultation: Acute renal failure, hepatorenal syndrome. HPI Narrative: ORTIZ TOVAR, is a 57 M who presents to [facility] on October 05 for acute renal failure found on blood work after seen in the office with GI. He has a history of alcohol induced liver cirrhosis diagnosed 2-1/2 years ago with large-volume paracentesis on initial diagnosis. He has been sober since he was diagnosed with cirrhosis about 3 years ago. He was hospitalized in August for fatigue, weakness, abdominal discomfort with painless jaundice secondary to decompensated liver disease. He has been on Lasix and spironolactone that was discontinued for worsening renal function. Baseline creatinine 0.86 in April progressed to 1.07 July 30 and 1.6 August 17. Creatinine during August hospitalization was 1.7-2.0. Current hospitalization shows creatinine at 3.3-3.5 today. He is also found to be hyponatremic with a sodium normal in August now down to 125. He is on a fluid restriction of 1500 cc a day. He has been on lactulose and Xifaxan for encephalopathy. He has bowel movements 3-4 times a day. He had part of his colon resected over 25 years ago for what sounds to be bowel obstruction and infection. He admits to decreased appetite the past several days with progressive weakness, light headedness, near syncope without syncope or fall. He has shortness of breath with increased abdominal distention. He has nausea. Denied any abdominal pain, fever, chills. He has noticed a drop in his urine output. His has noticed some mild tremors and some intermittent confusion and somnolence. He undergoes paracentesis weekly on Wednesdays since July with 5 to 7 L removed followed by IV albumin. CAT scan with IV contrast on July 30, 2022 showed normal kidneys without hydronephrosis. He had moderate splenomegaly with esophageal varices and varices in the splenic hilum and ascites. He denies NSAID use. He is undergoing evaluation for living related donor liver transplant from his twin brother at [facility]. [facility] Medical History Congestive heart failure CPAP (continuous positive airway pressure) dependence Former smoker GERD (gastroesophageal reflux disease) GI bleed History of ETOH abuse HLD (hyperlipidemia) HTN (hypertension) Narcolepsy Obstructive sleep apnea Past history of chewing tobacco use Home Medications pantoprazole 40 mg tablet,delayed release 40 mg PO BID gerd 08/02/21 [History Last Taken 10/05/22] rifaximin 550 mg tablet (Xifaxan) 550 mg PO BID encephalopathy 08/02/21 [History Last Taken 10/05/22] diazepam 5 mg tablet (Valium) 5 mg PO TID PRN muscle spasm 5 days #15 tabs 10/05/22 [Rx Last Taken 10/04/22] lactulose 10 gram/15 mL oral solution 40 ml PO Q4H 10/05/22 [History Last Taken 10/05/22] midodrine 5 mg tablet 10 mg PO TIDCM 30 days #180 tabs 10/05/22 [Rx Last Taken 10/05/22] mirtazapine 15 mg tablet 7.5 mg PO QHS #30 tabs 10/05/22 [Rx Last Taken Unknown] ondansetron 4 mg disintegrating tablet 4 mg PO TID PRN nausea and vomiting #21 tabs 10/05/22 [Rx Last Taken 10/05/22] polyethylene glycol 3350 17 gram oral powder packet 17 g PO BID STOOL 10/05/22 [History Last Taken 10/05/22] Allergy/AdvReac Type Severity Reaction Status Date / Time shellfish derived Allergy Anaphylaxis Verified 10/05/22 17:29 Family History Mother Alzheimer disease Father Heart disease Diabetes Surgical History H/O partial resection of colon Social History household members: spouse Smoking Status: Never smoker Smokeless tobacco user: chewing tobacco how long ago did patient quit smoking: Former chew tobacco, quit 2.5 years prior, chewed 1 can/day since 18. alcohol intake: former details: Quit 2.5 years prior with EtOH abuse history. substance use type: does not use Physical Exam Const alert and oriented x3 General Appearance: well developed Nutritional Appearance: obese HEENT normocephalic Head and Scalp: atraumatic Eyes PERRL Eyes Narrative: Icteric Neck no JVD Resp no use of accessory muscles and clear to auscultation bilaterally Effort and Inspection: Negative for respiratory distress Cardio regular rate, no murmurs and no rub GI non-tender GI Narrative: Moderately distention Auscultation: normoactive bowel sounds Palpation: soft and splenomegaly; Negative for tense ascites Percussion: Negative for tympanic to percussion Back/Spine Back/Spine Narrative: Generalized weakness Thoracic Spine / Upper Back: ROM limited Extremity full ROM Skin no rashes or lesions noted General Skin Exam: Negative for ecchymosis or petechiae Neuro CN's II-XII intact bilaterally Sensorium / Orientation: awake and alert Motor Exam: Negative for tremor or asterixis Psych cooperative Lab / Micro Data Result Diagrams: 10/07/22 05:17 10/07/22 05:17 Labs: Laboratory Results - last 24 hr 10/05/22 17:45: WBC 10.0, RBC 3.63 L, Hgb 12.1 L, Hct 34.6 L, MCV 95.3 H, MCH 33.3 H, MCHC 35.0, RDW Std Deviation 48.4 H, RDW Coeff of Olvin 14.0, Plt Count 173, MPV 10.9, Immature Gran % (Auto) 1.300 H, Neut % (Auto) 72.9 H, Lymph % (Auto) 5.5 L, [place] % (Auto) 15.9 H, Eos % (Auto) 3.7, Baso % (Auto) 0.7, Absolute Neuts (auto) 7.3, Absolute Lymphs (auto) 0.55 L, Nucleated RBC % 0, Differential Comment SEE COMMENTS, Platelet Estimate ADEQUATE, RBC Morphology N CHROM, Anisocytosis 1+, Macrocytosis 1+ 10/05/22 17:45: Sodium 126 L, Potassium 4.9, Chloride 98, Carbon Dioxide 17.0 L, Anion Gap 11, BUN 75 H, Creatinine 3.43 H, Estim Creat Clear Calc 23.94, Est GFR (MDRD) Af Amer 24 L, Est GFR (MDRD) Non-Af 20 L, BUN/Creatinine Ratio 21.9 H, Glucose 109 H, Calcium 9.1, Total Bilirubin 4.20 H, Direct Bilirubin 2.20 H, AST 68 H, ALT 40, Alkaline Phosphatase 345 H, Total Protein 5.7 L, Albumin 3.0 L, Globulin 2.7, Lipase 159 10/06/22 06:48: Ammonia 73.0 H 10/06/22 06:48: WBC 7.9, RBC 3.27 L, Hgb 10.9 L, Hct 31.1 L, MCV 95.1 H, MCH 33.3 H, MCHC 35.0, RDW Std Deviation 48.5 H, RDW Coeff of Olvin 14.0, Plt Count 140 L, MPV 10.6, Immature Gran % (Auto) 1.400 H, Neut % (Auto) 70.7 H, Lymph % (Auto) 6.1 L, [place] % (Auto) 16.2 H, Eos % (Auto) 4.6, Baso % (Auto) 1.0, Absolute Neuts (auto) 5.6, Absolute Lymphs (auto) 0.48 L, Nucleated RBC % 0 10/06/22 06:48: Sodium 125 L, Potassium 4.9, Chloride 98, Carbon Dioxide 15.0 L, Anion Gap 12, BUN 75 H, Creatinine 3.50 H, Estim Creat Clear Calc 23.46, Est GFR (MDRD) Af Amer 23 L, Est GFR (MDRD) Non-Af 19 L, BUN/Creatinine Ratio 21.4 H, Glucose 95, Calcium 8.6, Total Bilirubin 4.20 H, AST 57 H, ALT 33, Alkaline Phosphatase 283 H, Total Protein 5.0 L, Albumin 2.7 L, Globulin 2.3, Albumin/Globulin Ratio 1.2
[2022-10-06 14:29] VITALS: BP 103/48; PULSE 73; RESP 18; TEMP 36.6; O2SAT 98
[2022-10-06] MEDS: Ensure Plus High Protein 120 ML LIQUID PO ×2 (14:37→17:46)
--- NOTE | 2022-10-06 15:33 | CASEMGMT ---
SHANEKA ACUNA Readmission Note Previous Admission:? 09/04/2022-09/09/2022 Diagnosis:? decompensated cirrhosis DC Disposition: Home Current Admission??? Current Diagnosis: MARILYN Pt presented to ER after appt with who sent pt in for worsening renal fxn, specifically because with his hepatic encephalopathy, lactulose wouldn't work with the elevated BUN. Pt receives paracentesis every Saturday. He is currently under evaluation for liver transplant by his twin brother. ?Per nephro consult today, pt creatinine 0.86 in April progressed to 1.07-1.6 in July, 2.0-2.2 in August, 3.32 on admission to 3.5 today likely due to hepatorenal syndrome, prerenal event from poor oral intake for the past several days, anorexia, large volume paracentesis weekly. Pt in room with another family member. Pt reports he is taking his medications as ordered from last hospitalization and uses a cane at home. Pt has had follow up appt with PCP. Pt reports he is still working but is currently under a FMLA. Discussed the possible need for dialysis. Options for centers given. Pt and to think about this in case of need. Pt denies further needs at this time or for homegoing unless dialysis required. Plan: Home, pending need for dialysis set up.
[2022-10-06 17:49] LABS: Urine Sodium < 5 mmol/L (Not Establ.)
[2022-10-06 18:42] LABS: Osmolality, Urine 454 mOsm/KG
[2022-10-06 20:15] VITALS: BP 115/63; PULSE 79; RESP 16; TEMP 36.8; O2SAT 98
[2022-10-06] MEDS: Mirtazapine 15 MG Tablet 7.5 MG PO (20:22)
[2022-10-07 02:15] VITALS: BP 140/78; PULSE 84; RESP 16; TEMP 36.6; O2SAT 100
[2022-10-07] MEDS: Octreotide 0.1 MG/ML ML SC ×3 (05:57→20:53)
[2022-10-07] MEDS: Lactulose 20 GM/30 ML UDC 26.66667 GM PO ×5 (05:59→20:46)
[2022-10-07 06:02] LABS: Absolute Lymphocyte Count 0.19 X10^3/uL (0.83-4.51); Basophil# 0.09 X10^3/uL; Basophil% 1.4 % (0-1); Eosinophil# 0.35 X10^3/uL; Eosinophils% 5.6 % (0-5); Hematocrit 28.6 % (40-54); Hemoglobin 10.3 g/dL (13.0-16.5); Lymphocyte # 0.19 X10^3/ul (0.83-4.51); Mean Corpuscular Hgb 34.6 pg (27.0-32.0); Mean Platelet Vol. 10.8 fl (6.2-12.0); Monocyte# 1.49 X10^3/uL; Monocyte% 23.8 % (0-10); NRBC Flagged by Analyzer 0 % (0-5); Neutrophil # 3.98 X10^3/uL (2.7-7.7); Neutrophil % 63.8 % (47-70); POSITIVE DIFFERENTIAL YES; Platelet Count 115 K/mm3 (150-450); RBC Distribution Width SD 49.1 fl (35.1-43.9); Red Blood Count 2.98 M/mm3 (4.6-6.2); White Blood Count 6.3 K/mm3 (4.4-11.0)
[2022-10-07 06:27] LABS: Differential Indicated SCAN CRITERIA MET
[2022-10-07 06:36] LABS: ALB/GLOB Ratio 1.3 RATIO (0.9-2.4); AST(SGOT) 67 U/L (15-37); Alanine Aminotransfer ALT/SGPT 31 U/L (16-61); Albumin, Serum 2.9 g/dL (3.2-5.0); Alkaline Phosphatase 238 U/L (45-117); Anion Gap 12 (5-15); BUN 76 mg/dL (7-18); BUN/Creat Ratio 18.1 RATIO (10-20); Calcium,Total 8.4 mg/dL (8.5-10.1); Chloride 100 mmol/L (98-107); Creatinine, Serum 4.19 mg/dL (0.70-1.30); EST Glomerular Filtration Rate 16 mL/min (>60); Est Glom Filt Rate - Afr Amer 19 mL/min (>60); Globulin 2.2 g/dL (2.2-4.2); Glucose 116 mg/dL (74-106); Potassium 5.5 mmol/L (3.5-5.1); Protein, Total 5.1 g/dL (6.4-8.2); Sodium Level 126 mmol/L (136-145)
[2022-10-07 07:06] LABS: Differential Comment SCANNED
--- NOTE | 2022-10-07 08:54 | PCM.PN.HOSP ---
Subjective Subjective Doing well, no issues overnight. Renal function is getting worse from his hepatorenal syndrome. Objective Data Objective Data Vital Signs: Vital Signs Temp Pulse Resp BP Pulse Ox O2 Del Method 97.8 F 84 16 140/78 H 100 Room Air 10/07/22 02:15 10/07/22 02:15 10/07/22 02:15 10/07/22 02:15 10/07/22 02:15 10/07/22 02:15 Oxygen Delivery Method Room Air Weight: 270 lb 2.824 oz Body Mass Index (BMI) 38.7 Intake & Output: Intake and Output for Last 24 Hours 10/06/22 10/07/22 10/08/22 03:59 03:59 03:59 Intake Total 50 / 50 150 / 150 Output Total 200 / 200 Balance 50 / 50 -50 / -50 Lab / Micro Data Result Diagrams: 10/07/22 05:17 10/07/22 05:17 Labs: Laboratory Results - last 24 hr 10/06/22 16:49: Urine Osmolality 454 10/06/22 16:49: Ur Random Sodium < 5, Urine Creatinine 175.00 10/07/22 05:17: WBC 6.3, RBC 2.98 L, Hgb 10.3 L, Hct 28.6 L, MCV 96.0 H, MCH 34.6 H, MCHC 36.0, RDW Std Deviation 49.1 H, RDW Coeff of Olvin 14.0, Plt Count 115 L, MPV 10.8, Immature Gran % (Auto) 2.400 H, Neut % (Auto) 63.8, Lymph % (Auto) 3.0 L, [place] % (Auto) 23.8 H, Eos % (Auto) 5.6 H, Baso % (Auto) 1.4 H, Absolute Neuts (auto) 4.0, Absolute Lymphs (auto) 0.19 L, Nucleated RBC % 0, Differential Comment SCANNED 10/07/22 05:17: Sodium 126 L, Potassium 5.5 H, Chloride 100, Carbon Dioxide 14.0 L, Anion Gap 12, BUN 76 H, Creatinine 4.19 H, Estim Creat Clear Calc 19.60, Est GFR (MDRD) Af Amer 19 L, Est GFR (MDRD) Non-Af 16 L, BUN/Creatinine Ratio 18.1, Glucose 116 H, Calcium 8.4 L, Total Bilirubin 3.90 H, AST 67 H, ALT 31, Alkaline Phosphatase 238 H, Total Protein 5.1 L, Albumin 2.9 L, Globulin 2.2, Albumin/Globulin Ratio 1.3 Physical Exam Narrative General: Alert, Oriented x3, Cooperative, No apparent distress HEENT: Atraumatic, PERRLA, EOMI, Normocephalic Oral: Moist Mucosa Neck: Supple, No JVD Lungs: Clear to auscultation, Normal air movement, No rhonchi, No wheeze, No rales Cardiovascular: Regular rate, Regular Rhythm, Normal S1, Normal S2, No murmurs Abdomen: Soft, Non Tender, distended, No Hepato-splenomegaly Extremities: No edema, Capillary Refill Less than 3 Seconds Skin: No rashes, No breakdown Musculoskeletal: No Tenderness to Palpation of Joints or Extremities Neurological: Cranial nerves II-XII grossly intact, Motor Exam 5/5 strength throughout, Sensory exam intact to light touch and pain Psych/Mental Status: Normal Affect, Appropriate Assessment & Plan Assessment/Plan (1) Hepatorenal syndrome: (2) Muscle spasm: (3) Hyponatremia: (4) MARILYN (acute kidney injury): PLAN: Plan 1. MARILYN secondary to possible hepatorenal syndrome/hepatic encephalopathy due to cirrhosis from alcohol with ascites ? His encephalopathy appears to be resolved, continue with lactulose and Xifaxan ? Renal function has increased to a creatinine of over 4, appreciate nephrology's assistance, he has received several doses of albumin ? Continue with midodrine and octreotide ? Continue with twice daily PPI ? He states that he receives a several liter paracentesis every Saturday and he is currently being evaluated for transplant, he says that he has an identical twin who would be able to do a live donor DVT: Lovelaurenx Charges/Coding Visit Charges Inpatient E&M: 34766 Subs Hosp L2
--- NOTE | 2022-10-07 09:36 | PCM.PN.BLA ---
Progress Note decline in renal fxn due to HRS, hyperkalemia with metabolic acidosis. Give kayexalate and iv bicarb. Add po bicarb. Check 24h urine crcl.
[2022-10-07 09:58] VITALS: BP 92/51; PULSE 80; RESP 18; TEMP 37.2; O2SAT 96
[2022-10-07] MEDS: rifAXIMin 550 MG Tablet PO ×2 (10:13→20:45)
[2022-10-07] MEDS: Enoxaparin 30 MG/0.3 ML Syringe SC (10:13)
[2022-10-07] MEDS: Pantoprazole Sodium 40 MG Tablet PO ×2 (10:13→20:45)
[2022-10-07] MEDS: Sodium Polystyrene Sulfonate 15 GM/60 ML UDC 30 GM PO (10:13)
[2022-10-07] MEDS: Sodium Bicarbonate 650 MG Tablet PO ×2 (10:13→20:45)
[2022-10-07] MEDS: Midodrine HCl 5 MG Tablet 10 MG PO ×3 (10:13→17:47)
[2022-10-07] MEDS: Ensure Plus High Protein 120 ML LIQUID PO ×4 (10:13→20:46)
[2022-10-07] MEDS: Polyethylene Glycol 3350 17 GM PACKET PO ×2 (10:13→20:46)
[2022-10-07 15:02] VITALS: BP 101/55; PULSE 88; RESP 18; TEMP 37; O2SAT 98
[2022-10-07] MEDS: 0.9% Saline Lock 10 ML Syringe IV (18:52)
[2022-10-07] MEDS: Mirtazapine 15 MG Tablet 7.5 MG PO (20:45)
[2022-10-07] MEDS: diazePAM 5 MG Tablet PO (20:46)
[2022-10-07 21:00] VITALS: BP 128/67; PULSE 76; RESP 18; TEMP 36.6; O2SAT 98
[2022-10-08 02:15] VITALS: BP 154/87; PULSE 75; RESP 18; TEMP 36.6; O2SAT 100
[2022-10-08] MEDS: Haloperidol Lactate 5 MG/ML Vial 4 MG IM (02:57)
[2022-10-08] MEDS: Lactulose 20 GM/30 ML UDC 26.66667 GM PO ×2 (02:59→06:09)
[2022-10-08] MEDS: Octreotide 0.1 MG/ML ML SC ×2 (06:00→13:13)
[2022-10-08 06:09] LABS: Absolute Lymphocyte Count 0.29 X10^3/uL (0.83-4.51); Absolute Neutrophil Count 4.2 X10^3/uL (2.0-7.7); Basophil# 0.04 X10^3/uL; Basophil% 0.7 % (0-1); Eosinophil# 0.03 X10^3/uL; Eosinophils% 0.5 % (0-5); Hematocrit 30.9 % (40-54); Hemoglobin 11.3 g/dL (13.0-16.5); Lymphocyte # 0.29 X10^3/ul (0.83-4.51); Mean Corp Hgb Conc 36.6 g/dL (32-36); Mean Corpuscular Hgb 34.5 pg (27.0-32.0); Mean Corpuscular Volume 94.2 fL (80-94); Mean Platelet Vol. 10.8 fl (6.2-12.0); Monocyte# 1.16 X10^3/uL; Monocyte% 19.8 % (0-10); NRBC Flagged by Analyzer 0 % (0-5); Neutrophil # 4.22 X10^3/uL (2.7-7.7); Neutrophil % 72.1 % (47-70); POSITIVE COUNT YES; POSITIVE DIFFERENTIAL YES; Platelet Count 90 K/mm3 (150-450); RBC Distribution Width CV 13.8 % (11.6-14.6); RBC Distribution Width SD 47.8 fl (35.1-43.9); Red Blood Count 3.28 M/mm3 (4.6-6.2); White Blood Count 5.9 K/mm3 (4.4-11.0)
[2022-10-08 06:11] LABS: Differential Indicated SCAN CRITERIA MET
[2022-10-08 06:21] LABS: International Normalized Ratio 1.6; Prothrombin Time (Protime)PT. 19.1 SECONDS (11.7-14.9)
[2022-10-08 06:22] LABS: Partial Thromboplast Time 39.1 Seconds (24.1-36.2)
[2022-10-08 06:32] LABS: ALB/GLOB Ratio 1.2 RATIO (0.9-2.4); AST(SGOT) 79 U/L (15-37); Alanine Aminotransfer ALT/SGPT 39 U/L (16-61); Albumin, Serum 2.8 g/dL (3.2-5.0); Alkaline Phosphatase 252 U/L (45-117); Anion Gap 13 (5-15); BUN 79 mg/dL (7-18); BUN/Creat Ratio 16.1 RATIO (10-20); Calcium,Total 8.5 mg/dL (8.5-10.1); Chloride 101 mmol/L (98-107); Creatinine, Serum 4.91 mg/dL (0.70-1.30); EST Glomerular Filtration Rate 13 mL/min (>60); Est Glom Filt Rate - Afr Amer 16 mL/min (>60); Estimated Creatinine Clearance 16.73 ml/min; Globulin 2.3 g/dL (2.2-4.2); Glucose 151 mg/dL (74-106); Protein, Total 5.1 g/dL (6.4-8.2); Sodium Level 132 mmol/L (136-145)
[2022-10-08 06:39] LABS: Macrocytosis RARE; Platelet Estimate MOD DEC (ADEQ)
[2022-10-08 09:30] VITALS: BP 131/56; PULSE 76; RESP 18; TEMP 36.7; O2SAT 98
[2022-10-08 13:08] VITALS: BP 130/68; PULSE 85; RESP 18; TEMP 36.8; O2SAT 100
--- NOTE | 2022-10-08 13:12 | CASEMGMT ---
Addendum entered by Jennifer Barth 10/08/22 13:46: BRYANNA called Amy, at [facility], to confirm referral had been received. Amy requested SW send referral directly to [place] [facility] as [place] office is short staffed. SW informed Amy of pt 's hope for [facility] and that had been educated on process of appointment and meeting. Amy to review referral and make contact with pt this day. HARSHAD Barber Original Note: Social Work SW informed b Dr. Fabienne Inman that pt family is requesting a Hospice Referral be sent. SW spoke to pt and MIL. Pt confirmed Hospice is next step and asked SW to send the referral. SW offered support and encouraged pt family to reach out if an needs arise. BRYANNA gathered clinical documents and faxed referral to [facility] hospice. BRYANNA will follow up later this day. PLAN: Hospice Consult HARSHAD Barber
--- NOTE | 2022-10-08 13:53 | PN.RENAL_ITS ---
Subjective Subjective pt with decline in mentation, twitching, tremors with encephalopathy. Pt spouse at bedside. History of poor quality of life past 2 years. Pt spouse decided on no dialysis, changed to DNR. Pt spouse would like hospice referral. Objective Data Objective Data Vital Signs: Vital Signs Temp Pulse Resp BP Pulse Ox O2 Del Method 98.3 F 85 18 130/68 H 100 Room Air 10/08/22 13:08 10/08/22 13:08 10/08/22 13:08 10/08/22 13:08 10/08/22 13:08 10/08/22 13:08 Oxygen Delivery Method Room Air Weight: 122.55 kg Body Mass Index (BMI) 38.7 Intake & Output: Intake and Output for Last 24 Hours 10/06/22 10/07/22 10/08/22 23:59 23:59 23:59 Intake Total 200 / 200 1150 / 1150 Output Total 200 / 200 400 / 400 Balance 0 / 0 750 / 750 Lab / Micro Data Result Diagrams: 10/08/22 05:57 10/08/22 05:57 Labs: Laboratory Results - last 24 hr 10/08/22 05:57: WBC 5.9, RBC 3.28 L, Hgb 11.3 L, Hct 30.9 L, MCV 94.2 H, MCH 34.5 H, MCHC 36.6 H, RDW Std Deviation 47.8 H, RDW Coeff of Olvin 13.8, Plt Count 90 L, MPV 10.8, Immature Gran % (Auto) 1.900 H, Neut % (Auto) 72.1 H, Lymph % (Auto) 5.0 L, [place] % (Auto) 19.8 H, Eos % (Auto) 0.5, Baso % (Auto) 0.7, Absolu te Neuts (auto) 4.2, Absolute Lymphs (auto) 0.29 L, Nucleated RBC % 0, Platelet Estimate MOD DEC, Macrocytosis RARE 10/08/22 05:57: Sodium 132 L, Potassium 4.0, Chloride 101, Carbon Dioxide 18.0 L , Anion Gap 13, BUN 79 H, Creatinine 4.91 H, Estim Creat Clear Calc 16.73, Est GFR (MDRD) Af Amer 16 L, Est GFR (MDRD) Non-Af 13 L, BUN/Creatinine Ratio 16.1, Glucose 151 H, Calcium 8.5, Total Bilirubin 3.20 H, AST 79 H, ALT 39, Alkaline P hosphatase 252 H, Total Protein 5.1 L, Albumin 2.8 L, Globulin 2.3, Albumin/Globulin Ratio 1.2 10/08/22 05:57: PT 19.1 H, INR 1.6, APTT 39.1 H 10/08/22 11:05: Ammonia 105.0 H Physical Exam Const Constitutional Narrative: encephalopathic, restless in bed. Unable to provide history. Orientation / Consciousness: confused and lethargic Nutritional Appearance: obese Resp clear to auscultation bilaterally Cardio regular rate and no rub GI non-tender GI Narrative: distended Auscultation: normoactive bowel sounds Palpation: soft and ascites Extremity no clubbing, cyanosis or edema Extremity Narrative: jaundiced Neuro Neuro Narrative: encephalopathy facial twitching Sensorium / Orientation: lethargic Motor Exam: tremor and asterixis Psych Psych Narrative: confused Attitude: uncooperative Memory / Cognition: cognition impaired Assessment & Plan Assessment/Plan (1) MARILYN (acute kidney injury): PLAN: creatinine up to 4.90 despite 1L iv fluds, scant urine, more confused, encephalopathic with elevated ammonia level. Pt spouse at bedside. She decided on paliative care, hospice with poor quality of life past several years. No dialysis, pt DNR. Pt with grave prognosis, poor dialysis candidate. Remains hypotensive despite midodrine. Agree with hospice consult. HOWARD hospitalist. (2) Hepatorenal syndrome: PLAN: With decline in renal function. Hospice appropriate. HOWARD pt spouse at bedside. Poor dialysis candidate. (3) Alcoholic cirrhosis: PLAN: sober for 3 years (4) Hyponatremia: PLAN: due to volume expansion, hepatorenal syndrome, ascites. (5) Encephalopathy: PLAN: Ammonia level elevated with worsening encephalopathy (6) Ascites: (7) Splenomegaly: (8) Metabolic acidosis: PLAN: due to liver and renal failure, improved with bicarb replacement (9) Hyperkalemia: PLAN: resolved
--- NOTE | 2022-10-08 15:48 | DS.PCM_ITS ---
Providers Date of Admission: 10/05/22 Date of Discharge: 10/08/22 Primary Care Physician: Dr. Jake Fraser MD Consultations 10/06/22 00:30 Consult: Nephrology Routine Consulting Provider: Rubi Inman Reason for Consult: MARILYN EMERGENT Consult: No Notified: Yes Date Notified: 10/06/22 Time Notified: 08:25 Method of Notification: Text 10/08/22 10:49 Consult: Gastroenterology Routine Consulting Provider: [facility] Reason for Consult: hepatic encephalopathy EMERGENT Consult: No Notified: Yes Date Notified: 10/08/22 Time Notified: 10:51 Method of Notification: Text Reason For Visit: MARILYN Diagnosis Discharge Diagnosis (1) MARILYN (acute kidney injury): Status: Acute Code(s): N17.9 - Acute kidney failure, unspecified (2) Hepatorenal syndrome: Status: Chronic Code(s): K76.7 - Hepatorenal syndrome (3) Alcoholic cirrhosis: Status: Chronic Code(s): K70.30 - Alcoholic cirrhosis of liver without ascites (4) Hyponatremia: Status: Acute Code(s): E87.1 - Hypo-osmolality and hyponatremia (5) Encephalopathy: Status: Acute Code(s): G93.40 - Encephalopathy, unspecified (6) Ascites: Status: Chronic Code(s): R18.8 - Other ascites (7) Splenomegaly: Status: Acute Code(s): R16.1 - Splenomegaly, not elsewhere classified (8) Metabolic acidosis: Status: Acute Code(s): E87.20 - Acidosis, unspecified (9) Hyperkalemia: Status: Acute Code(s): E87.5 - Hyperkalemia Medications at Discharge Home Medications pantoprazole 40 mg tablet,delayed release 40 mg PO BID gerd 08/02/21 rifaximin 550 mg tablet (Xifaxan) 550 mg PO BID encephalopathy 08/02/21 diazepam 5 mg tablet (Valium) 5 mg PO TID PRN muscle spasm 5 days #15 tabs 10/05/22 lactulose 10 gram/15 mL oral solution 40 ml PO Q4H 10/05/22 midodrine 5 mg tablet 10 mg PO TIDCM 30 days #180 tabs 10/05/22 mirtazapine 15 mg tablet 7.5 mg PO QHS #30 tabs 10/05/22 ondansetron 4 mg disintegrating tablet 4 mg PO TID PRN nausea and vomiting #21 tabs 10/05/22 polyethylene glycol 3350 17 gram oral powder packet 17 g PO BID STOOL 10/05/22 Hospital Course Operations None Procedures None Summary of Care Provided Minutes Spent on Discharge: 55 Hospital Course: Patient is a 57-year-old male with a past medical history as outlined which includes alcoholic liver cirrhosis and hepatic encephalopathy who was admitted via the ED on 10/05/2022 after he was sent to the ED by his waste and batting waste chopper on account of elevated BUN and creatinine. Labs. He had initially been seen in the ED on that very day of admission for generalized body pain and nausea and was found to have MARILYN. He was hydrated and discharged home. Went see his waste and batting waste chopper and on account of the elevated BUN and creatinine, waste and batting waste chopper was concerned the lactulose may not be very effective. He also had to be optimized for liver transplantation so gastroenterology admitted the patient. On admission was found to have elevated creatinine of 3.43. He was also hyponatremic which was thought to be due to hepatic encephalopathy. He was admitted and managed for MARILYN which was thought to be due to hepatorenal syndrome. He was started on hydration with IV fluid. Nephrology was consulted. His lactulose and rifaximin were continued. Patient's creatinine gradually worsened and he became even more agitated and required Haldol. Nephrology reviewed patient and counseled family that he was heading towards dialysis. 24- hour urine output showed that patient was having minimal urine output. Family changed code to DNR CCA with intubation. On 10/08/2022. This hospitalist reviewed patient and in light of his worsening kidney function, counseled that he was likely going to need dialysis. was very concerned and was more interested in preserving his quality of life rather than prolonging his life. Upon further counseling she decided to switch CODE STATUS to DNR CCA with no intubation. subsequently opted for hospice evaluation. Patient was evaluated by hospice on 10/08/2022. His CODE STATUS was switched to DNR CC and patient was discharged to the hospice medical facility on 10/08/2022. Patient was seen and examined prior to discharge. Patient was confused and therefore unable to do review of systems. His creatinine had trended upwards. He had minimal urine in his Floyd bag and urine was very concentrated. Labs and vitals reviewed. Physical Exam Const Constitutional Narrative: confused, agitated Orientation / Consciousness: awake Exam Limitations: altered mental status HEENT normocephalic and head/scalp atraumatic Mouth: dry mucous membranes Neck no lymphadenopathy Resp normal respiratory effort, no retractions, no use of accessory muscles and clear to auscultation bilaterally Cardio regular rate, regular rhythm, S1 normal heart sound, S2 normal heart sound and no murmurs GI normal to inspection, nondistended, normoactive bowel sounds, soft to palpation, non-tender and non-distended Extremity normal to inspection Skin no rashes or lesions noted Neuro Neuro Narrative: confused, agitated Sensorium / Orientation: awake Weight / BMI Weight Weight: 270 lb 2.824 oz Body Mass Index (BMI) 38.7 ABG / Lab / Microbiology Data Result Diagrams: 10/08/22 05:57 10/08/22 05:57 Laboratory: Laboratory Results - last 24 hr 10/08/22 05:57: WBC 5.9, RBC 3.28 L, Hgb 11.3 L, Hct 30.9 L, MCV 94.2 H, MCH 34.5 H, MCHC 36.6 H, RDW Std Deviation 47.8 H, RDW Coeff of Olvin 13.8, Plt Count 90 L, MPV 10.8, Immature Gran % (Auto) 1.900 H, Neut % (Auto) 72.1 H, Lymph % (Auto) 5.0 L, [place] % (Auto) 19.8 H, Eos % (Auto) 0.5, Baso % (Auto) 0.7, Absolute Neuts (auto) 4.2, Absolute Lymphs (auto) 0.29 L, Nucleated RBC % 0, Platelet Estimate MOD DEC, Macrocytosis RARE 10/08/22 05:57: Sodium 132 L, Potassium 4.0, Chloride 101, Carbon Dioxide 18.0 L , Anion Gap 13, BUN 79 H, Creatinine 4.91 H, Estim Creat Clear Calc 16.73, Est GFR (MDRD) Af Amer 16 L, Est GFR (MDRD) Non-Af 13 L, BUN/Creatinine Ratio 16.1, Glucose 151 H, Calcium 8.5, Total Bilirubin 3.20 H, AST 79 H, ALT 39, Alkaline Phosphatase 252 H, Total Protein 5.1 L, Albumin 2.8 L, Globulin 2.3, Albumin/Globulin Ratio 1.2 10/08/22 05:57: PT 19.1 H, INR 1.6, APTT 39.1 H 10/08/22 11:05: Ammonia 105.0 H Meaningful Use Info Meaningful Use Diagnoses (Choose all that apply): None applicable Discharge Plan Admission Admit Date/Time: 10/05/22 22:27 Primary Reason for Your Visit: MARILYN due to hepatorenal syndrome Attending Provider: Nessa Wilkins Primary Care Provider: Jake Fraser Consulting Providers: Nabil Cody ; Rubi Inman ; Diego Arciniega Discharge Orders/Prescriptions Prescriptions: No Action midodrine 5 mg tablet 10 mg PO TIDCM 30 Days Qty: 180 3RF mirtazapine 15 mg tablet 7.5 mg PO QHS Qty: 30 2RF pantoprazole 40 mg tablet,delayed release (DR/EC) 40 mg PO BID Xifaxan 550 mg tablet 550 mg PO BID ondansetron 4 mg tablet,disintegrating 4 mg PO TID PRN (Reason: nausea and vomiting) Qty: 21 0RF diazepam [Valium] 5 mg tablet 5 mg PO TID PRN (Reason: muscle spasm) 5 Days Qty: 15 0RF lactulose 10 gram/15 mL solution 40 ml PO Q4H polyethylene glycol 3350 17 gram powder in packet 17 g PO BID Referrals / Follow Up: Jake Fraser MD [Primary Care Provider] - Disposition Disposition (needs filled in before D/C Order can be placed): Hospice in Medical Facility Charges/Coding Visit Charges Inpatient E&M: 63670 Disch Hosp
--- NOTE | 2022-10-08 15:48 | CASEMGMT ---
Social Work Ryley from Hospice met with pt family. Family signed with Hospice. Hospice to transport pt to [facility]. Dr. Wilkins updated. Informed new DNR form needs completed. Ryley back in to speak with family regarding plans for discharge. DISPO: [facility] Barber
== END 2022-10-08 16:15 | disposition hospice, inpatient (51) | DRG 682 ==
LOC: ED 17:55 → MS3 22:37
PROVIDERS: Family Medicine; Internal Medicine Nephrology; Admitting Provider Hospitalist; Emergency Provider Student in an Organized Health Care Education/Training Program; PCP Family Medicine; Visit Provider Student in an Organized Health Care Education/Training Program
DX: N17.9 Acute kidney failure, unspecified (principal); K76.7 Hepatorenal syndrome; I85.00 Esophageal varices without bleeding; E87.1 Hypo-osmolality and hyponatremia; E87.20 Acidosis, unspecified; K70.31 Alcoholic cirrhosis of liver with ascites; M62.838 Other muscle spasm; E87.6 Hypokalemia; G47.33 Obstructive sleep apnea (adult) (pediatric); E78.5 Hyperlipidemia, unspecified; E87.5 Hyperkalemia; K76.82 Hepatic encephalopathy; Z87.891 Personal history of nicotine dependence; Z51.5 Encounter for palliative care; Z66 Do not resuscitate; R16.1 Splenomegaly, not elsewhere classified
CPT/HCPCS: 36415; 80048; 80053; 80076; 82140; 82570; 83690; 83935; 84300; 85025; 85610; 85730; 93005; 99284; 99406; P9047; A4216; J2354; J2405

== ENCOUNTER → 2022-10-05 | Outpatient (CLI) | payer BC, SELFPAY ==
[2022-10-05 14:34] LABS: Absolute Lymphocyte Count 0.57 X10^3/uL (0.83-4.51); Absolute Neutrophil Count 7.2 X10^3/uL (2.0-7.7); Basophil# 0.07 X10^3/uL; Basophil% 0.8 % (0-1); Eosinophil# 0.31 X10^3/uL; Eosinophils% 3.3 % (0-5); Hematocrit 33.5 % (40-54); Lymphocyte # 0.57 X10^3/ul (0.83-4.51); Lymphocyte % 6.1 % (19-41); Mean Corp Hgb Conc 35.8 g/dL (32-36); Mean Corpuscular Hgb 34.2 pg (27.0-32.0); Mean Corpuscular Volume 95.4 fL (80-94); Mean Platelet Vol. 10.7 fl (6.2-12.0); Monocyte# 1.08 X10^3/uL; Monocyte% 11.6 % (0-10); NRBC Flagged by Analyzer 0 % (0-5); Neutrophil # 7.21 X10^3/uL (2.7-7.7); Neutrophil % 77.3 % (47-70); POSITIVE DIFFERENTIAL YES; Platelet Count 162 K/mm3 (150-450); RBC Distribution Width SD 49.1 fl (35.1-43.9); Red Blood Count 3.51 M/mm3 (4.6-6.2); White Blood Count 9.3 K/mm3 (4.4-11.0)
[2022-10-05 14:38] LABS: Differential Indicated SCAN CRITERIA MET
[2022-10-05 15:15] LABS: ALB/GLOB Ratio 1.1 RATIO (0.9-2.4); AST(SGOT) 68 U/L (15-37); Alanine Aminotransfer ALT/SGPT 40 U/L (16-61); Albumin, Serum 3.1 g/dL (3.2-5.0); Alkaline Phosphatase 347 U/L (45-117); Anion Gap 9 (5-15); BUN 75 mg/dL (7-18); BUN/Creat Ratio 22.6 RATIO (10-20); Calcium,Total 8.9 mg/dL (8.5-10.1); Chloride 97 mmol/L (98-107); Creatinine, Serum 3.32 mg/dL (0.70-1.30); EST Glomerular Filtration Rate 20 mL/min (>60); Est Glom Filt Rate - Afr Amer 25 mL/min (>60); Globulin 2.7 g/dL (2.2-4.2); Glucose 106 mg/dL (74-106); Potassium 5.3 mmol/L (3.5-5.1); Protein, Total 5.8 g/dL (6.4-8.2); Sodium Level 124 mmol/L (136-145)
[2022-10-05 16:39] LABS: Anisocytosis RARE; Macrocytosis RARE; Platelet Estimate ADEQUATE (ADEQ); Red Cell Morphology N CHROM NORMAL (NORM C&C)
== END | disposition home or self-care (01) ==
LOC: LAB 13:42
PROVIDERS: PCP Family Medicine; Visit Provider Internal Medicine Gastroenterology
DX: K70.30 Alcoholic cirrhosis of liver without ascites (principal); R18.8 Other ascites
CPT/HCPCS: 36415; 80053; 85025